=== PATIENT | male | born 1950 | race Caucasian/White ===

== ENCOUNTER → 2018-06-05 07:59 | Outpatient (CLI) | payer MEDICARE, OTHER, SELFPAY ==
[2018-06-05 09:26] LABS: Alanine Aminotransferase 21 IU/L (21-72); Albumin 4.5 g/dL (3.5-5.0); Albumin Globulin Ratio 1.7 (1.0-2.8); Alkaline Phosphatase 74 U/L (38-126); Aspartate Aminotransferase 28 IU/L (17-59); BUN Creatinine Ratio 21.8 (6-22); Bilirubin Total 0.9 mg/dL (0.2-1.3); Blood Urea Nitrogen 24 mg/dL (9-20); Carbon Dioxide 28 mmol/L (22-32); Chloride 104 mmol/L (98-107); Estimated Glomerular Filt Rate > 60.0 mL/min (>60); Globulin 2.7 g/dL (1.7-4.1); Glucose 123 mg/dL (80-110); HEMOLYSIS < 15 (0-50); Sodium 144 mmol/L (137-145); Total Protein 7.2 g/dL (6.3-8.2)
[2018-06-07 06:28] LABS: Hemoglobin A1C% w Est Avg Glu 6.7 % (4.0-6.0)
== END ==
PROVIDERS: Family Provider Family Medicine; PCP Family Medicine; Visit Provider Family Medicine
DX: E11.9 Type 2 diabetes mellitus without complications (principal); E78.5 Hyperlipidemia, unspecified; I10 Essential (primary) hypertension
CPT/HCPCS: 36415; 80053; 83036

== ENCOUNTER → 2018-08-30 08:33 | Outpatient (CLI) | payer MEDICARE, OTHER, SELFPAY ==
[2018-08-30 10:10] LABS: Hemoglobin A1C% w Est Avg Glu 7.2 % (4.0-6.0)
[2018-08-30 10:12] LABS: Alanine Aminotransferase 24 IU/L (21-72); Albumin 4.3 g/dL (3.5-5.0); Albumin Globulin Ratio 1.5 (1.0-2.8); Alkaline Phosphatase 78 U/L (38-126); Aspartate Aminotransferase 26 IU/L (17-59); Bilirubin Total 0.8 mg/dL (0.2-1.3); Blood Urea Nitrogen 17 mg/dL (9-20); Calcium 9.7 mg/dL (8.4-10.2); Carbon Dioxide 31 mmol/L (22-32); Chloride 103 mmol/L (98-107); Cholesterol 180 mg/dL (140-199); Estimated Glomerular Filt Rate > 60.0 mL/min (>60); Globulin 2.8 g/dL (1.7-4.1); Glucose 131 mg/dL (80-110); HDL Cholesterol 49 mg/dL (40-60); HEMOLYSIS < 15 (0-50); LDL Cholesterol Calculated 104 mg/dL (<100); Potassium 4.6 mmol/L (3.4-5.1); Sodium 144 mmol/L (137-145); Total Protein 7.1 g/dL (6.3-8.2); Triglycerides 135 mg/dL (35-150)
== END ==
PROVIDERS: Family Provider Family Medicine; PCP Family Medicine; Visit Provider Family Medicine
DX: E11.9 Type 2 diabetes mellitus without complications (principal); E78.5 Hyperlipidemia, unspecified; I10 Essential (primary) hypertension; Z51.81 Encounter for therapeutic drug level monitoring
CPT/HCPCS: 36415; 80053; 80061; 83036

== ENCOUNTER → 2018-12-02 08:11 | Outpatient (CLI) | payer MEDICARE, OTHER, SELFPAY ==
[2018-12-02 08:30] LABS: Add Manual Diff / Slide Review NO; Basophils Absolute Auto 0 /uL (0-100); Basophils Percent Auto 0.9 % (0-2); Eosinophils Absolute Auto 200 /uL (0-450); Eosinophils Percent Auto 4.8 % (2-4); Hematocrit 42.1 % (41-53); Hemoglobin 14.6 g/dL (13.5-17.5); Lymphocytes Absolute Auto 1100 /uL (1100-4500); Lymphocytes Percent Auto 21.3 % (25-40); Mean Corpuscular HGB Conc 34.7 % (30-36); Mean Corpuscular Volume 89.4 fL (80-100); Monocytes Absolute Auto 400 /uL (0-900); Monocytes Percent Auto 7.3 % (3-14); Neutrophils Absolute Auto 3300 /uL (1500-7000); Neutrophils Percent Auto 65.7 % (50-75); Platelet Count 166 X10^3/uL (150-400); Red Blood Cell Count 4.71 X10^6/uL (4.5-5.9); Red Cell Distribution Width 13.1 % (11.6-14.8); White Blood Cell Count 5.1 X10^3/uL (4.5-11.0)
[2018-12-02 08:44] LABS: Alanine Aminotransferase 23 IU/L (21-72); Albumin 4.4 g/dL (3.5-5.0); Albumin Globulin Ratio 1.5 (1.0-2.8); Alkaline Phosphatase 82 U/L (38-126); Aspartate Aminotransferase 24 IU/L (17-59); Bilirubin Total 0.6 mg/dL (0.2-1.3); Blood Urea Nitrogen 18 mg/dL (9-20); Calcium 9.4 mg/dL (8.4-10.2); Carbon Dioxide 29 mmol/L (22-32); Chloride 104 mmol/L (98-107); Cholesterol 153 mg/dL (140-199); Estimated Glomerular Filt Rate > 60.0 mL/min (>60); Globulin 2.9 g/dL (1.7-4.1); Glucose 132 mg/dL (80-110); HDL Cholesterol 41 mg/dL (40-60); HEMOLYSIS < 15 (0-50); LDL Cholesterol Calculated 85 mg/dL (<100); Potassium 4.2 mmol/L (3.4-5.1); Sodium 140 mmol/L (137-145); Total Protein 7.3 g/dL (6.3-8.2); Triglycerides 134 mg/dL (35-150)
[2018-12-02 08:45] LABS: Hemoglobin A1C% w Est Avg Glu 7.4 % (4.0-6.0)
[2018-12-02 09:33] LABS: Thyroid Stimulating Hormone 1.56 uIU/mL (0.47-4.68)
== END ==
PROVIDERS: PCP Family Medicine; Visit Provider Family Medicine
DX: E11.9 Type 2 diabetes mellitus without complications (principal); E78.5 Hyperlipidemia, unspecified; I10 Essential (primary) hypertension; Z51.81 Encounter for therapeutic drug level monitoring
CPT/HCPCS: 36415; 80053; 80061; 83036; 84443; 85025

== ENCOUNTER → 2019-04-12 07:08 | Outpatient (CLI) | payer MEDICARE, OTHER, SELFPAY ==
[2019-04-12 08:34] LABS: Alanine Aminotransferase 16 IU/L (21-72); Albumin 4.5 g/dL (3.5-5.0); Albumin Globulin Ratio 1.5 (1.0-2.8); Alkaline Phosphatase 89 U/L (38-126); Aspartate Aminotransferase 25 IU/L (17-59); Bilirubin Total 0.8 mg/dL (0.2-1.3); Blood Urea Nitrogen 20 mg/dL (9-20); Calcium 9.9 mg/dL (8.4-10.2); Carbon Dioxide 29 mmol/L (22-32); Chloride 102 mmol/L (98-107); Estimated Glomerular Filt Rate > 60.0 mL/min (>60); Glucose 120 mg/dL (80-110); HEMOLYSIS < 15 (0-50); Potassium 4.5 mmol/L (3.4-5.1); Sodium 140 mmol/L (137-145); Total Protein 7.5 g/dL (6.3-8.2)
[2019-04-12 10:15] LABS: Hemoglobin A1C% w Est Avg Glu 7.2 % (4.0-6.0)
== END ==
PROVIDERS: PCP Family Medicine; Visit Provider Family Medicine
DX: E11.9 Type 2 diabetes mellitus without complications (principal); I10 Essential (primary) hypertension
CPT/HCPCS: 36415; 80053; 83036

== ENCOUNTER → 2019-08-30 07:51 | Outpatient (CLI) | payer MEDICARE, OTHER, SELFPAY ==
[2019-08-30 08:42] LABS: Hemoglobin A1C% w Est Avg Glu 7.4 % (4.0-6.0)
[2019-08-30 08:56] LABS: Alanine Aminotransferase 7 IU/L (21-72); Albumin 4.3 g/dL (3.5-5.0); Albumin Globulin Ratio 1.6 (1.0-2.8); Alkaline Phosphatase 86 U/L (38-126); Aspartate Aminotransferase 20 IU/L (17-59); BUN Creatinine Ratio 21.1 (6-22); Bilirubin Total 0.6 mg/dL (0.2-1.3); Blood Urea Nitrogen 19 mg/dL (9-20); Calcium 9.8 mg/dL (8.4-10.2); Carbon Dioxide 29 mmol/L (22-32); Chloride 104 mmol/L (98-107); Cholesterol 165 mg/dL (140-199); Estimated Glomerular Filt Rate > 60.0 mL/min (>60); Globulin 2.7 g/dL (1.7-4.1); Glucose 151 mg/dL (80-110); HDL Cholesterol 45 mg/dL (40-60); HEMOLYSIS < 15 (0-50); LDL Cholesterol Calculated 91 mg/dL (<100); Potassium 4.3 mmol/L (3.4-5.1); Sodium 140 mmol/L (137-145); Triglycerides 145 mg/dL (35-150)
[2019-08-30 09:27] LABS: Thyroid Stimulating Hormone 1.24 uIU/mL (0.47-4.68)
[2019-08-30 10:43] LABS: Appearance Urine UA CLEAR; Bilirubin Urine UA NEGATIVE (NEGATIVE); Color Urine UA YELLOW; Glucose Urine UA 2+ g/dL (Negative); Ketones Urine UA NEGATIVE (NEGATIVE); Leukocyte Esterase Urine UA NEGATIVE (NEGATIVE); Nitrite Urine UA NEGATIVE (Negative); Occult Blood Urine UA NEGATIVE (Negative); Protein Urine UA NEGATIVE (Negative); Specific Gravity Urine UA <=1.005 (1.000-1.035); Urobilinogen Urine UA 0.2 E.U./dL (0.2); pH Urine UA 5.5 (4.5-8.0)
[2019-08-30 12:06] LABS: Microalbumin Urine Random 2.4 mg/dL (0-1.6)
[2019-08-30 12:07] LABS: Creatinine Urine Random 75.8 mg/dL; Microalbumi Creatinin Ratio Ur 31.6 ug/mg CR (<30)
== END ==
PROVIDERS: PCP Family Medicine; Visit Provider Family Medicine
DX: E11.9 Type 2 diabetes mellitus without complications (principal); E78.5 Hyperlipidemia, unspecified; I10 Essential (primary) hypertension
CPT/HCPCS: 36415; 80053; 80061; 81003; 82043; 82570; 83036; 84443

== ENCOUNTER → 2019-10-04 12:28 | Outpatient (CLI) | payer MEDICARE, OTHER, SELFPAY | PROVIDERS: PCP Family Medicine; Visit Provider Family Medicine | DX: Z00.00 Encounter for general adult medical examination without abnormal findings (principal); I10 Essential (primary) hypertension | CPT/HCPCS: 93005 ==

== ENCOUNTER → 2019-11-11 08:05 | Outpatient (CLI) | payer MEDICARE, OTHER, SELFPAY ==
[2019-11-11 09:48] LABS: Prostate Specific Antigen Scrn 3.06 ng/mL (0.1-4.0)
== END ==
PROVIDERS: PCP Family Medicine; Visit Provider Family Medicine
DX: Z12.5 Encounter for screening for malignant neoplasm of prostate (principal); Z00.00 Encounter for general adult medical examination without abnormal findings
CPT/HCPCS: 36415; G0103

== ENCOUNTER → 2020-01-09 08:35 | Outpatient (CLI) | payer MEDICARE, OTHER, SELFPAY ==
[2020-01-09 09:45] LABS: Add Manual Diff / Slide Review NO; Basophils Absolute Auto 0 /uL (0-100); Basophils Percent Auto 0.7 % (0-2); Eosinophils Absolute Auto 200 /uL (0-450); Hematocrit 41.8 % (41-53); Hemoglobin 14.6 g/dL (13.5-17.5); Lymphocytes Absolute Auto 1100 /uL (1100-4500); Lymphocytes Percent Auto 20.6 % (25-40); Mean Corpuscular HGB Conc 34.9 % (30-36); Mean Corpuscular Hemoglobin 31.1 PG (26-34); Mean Corpuscular Volume 88.9 fL (80-100); Monocytes Absolute Auto 400 /uL (0-900); Monocytes Percent Auto 7.1 % (3-14); Neutrophils Absolute Auto 3500 /uL (1500-7000); Neutrophils Percent Auto 67.6 % (50-75); Platelet Count 158 X10^3/uL (150-400); Red Cell Distribution Width 13.2 % (11.6-14.8); White Blood Cell Count 5.1 X10^3/uL (4.5-11.0)
[2020-01-09 09:55] LABS: Alanine Aminotransferase 13 IU/L (<50); Albumin 4.5 g/dL (3.5-5.0); Albumin Globulin Ratio 1.4 (1.0-2.8); Alkaline Phosphatase 103 U/L (38-126); Aspartate Aminotransferase 24 IU/L (17-59); Bilirubin Total 0.6 mg/dL (0.2-1.3); Blood Urea Nitrogen 18 mg/dL (9-20); Calcium 9.6 mg/dL (8.4-10.2); Carbon Dioxide 28 mmol/L (22-32); Chloride 103 mmol/L (98-107); Cholesterol 183 mg/dL (140-199); Estimated Glomerular Filt Rate > 60.0 mL/min (>60); Globulin 3.3 g/dL (1.7-4.1); Glucose 199 mg/dL (80-110); HDL Cholesterol 40 mg/dL (40-60); HEMOLYSIS < 15 (0-50); LDL Cholesterol Calculated 114 mg/dL (<100); Potassium 4.5 mmol/L (3.4-5.1); Sodium 140 mmol/L (137-145); Total Protein 7.8 g/dL (6.3-8.2); Triglycerides 144 mg/dL (35-150)
[2020-01-09 10:03] LABS: Hemoglobin A1C% w Est Avg Glu 7.8 % (4.0-6.0)
== END ==
PROVIDERS: PCP Family Medicine; Referring Provider Family Medicine; Visit Provider Family Medicine
DX: E11.9 Type 2 diabetes mellitus without complications (principal); E78.5 Hyperlipidemia, unspecified; I10 Essential (primary) hypertension; Z76.89 Persons encountering health services in other specified circumstances
CPT/HCPCS: 36415; 80053; 80061; 83036; 85025

== ENCOUNTER → 2020-01-17 10:32 | Outpatient (CLI) | payer MEDICARE, OTHER, SELFPAY ==
--- NOTE | 2020-01-17 10:34 | DI.RAD.S_ITS ---
PROCEDURE: XR FOOT LT MIN 3V INDICATIONS: cellulitis 2nd toe hx DM s/p partial amputation, r/o osteo TECHNIQUE: 3 views of the foot were acquired. COMPARISON: None. FINDINGS: Bones: Remote middle and distal phalanx amputation of second toe. Subtle loss of distal cortex of the proximal phalanx of the second toe raises the question of osteomyelitis. Prominent first MTP degenerative change. Midfoot degenerative arthritis. Soft tissues: No tibiotalar joint effusion. Achilles tendon appears normal. IMPRESSION: 1. Remote second toe amputation at the level of the PIP joint. 2. Suspicion of osteomyelitis at the distal aspect of the proximal phalanx of the second toe. Comment: Left foot MRI with and without contrast may be helpful. Dictated by: Ghulam Hinds M.D. on 01/17/2020 at 11:02 Approved by: Ghulam Hinds M.D. on 01/17/2020 at 11:08
== END ==
PROVIDERS: PCP Family Medicine; Referring Provider Physician Assistant; Visit Provider Physician Assistant
DX: E11.9 Type 2 diabetes mellitus without complications (principal); L03.032 Cellulitis of left toe; M19.072 Primary osteoarthritis, left ankle and foot; Z89.422 Acquired absence of other left toe(s)
CPT/HCPCS: 73630; 87070; 87075; 87205

== ENCOUNTER → 2020-04-09 08:30 | Outpatient (CLI) | payer MEDICARE, OTHER, SELFPAY ==
[2020-04-09 09:06] LABS: Hemoglobin A1C% w Est Avg Glu 7.8 % (4.0-6.0)
[2020-04-09 09:46] LABS: BUN Creatinine Ratio 21.8 (6-22); Blood Urea Nitrogen 19 mg/dL (9-20); Calcium 9.8 mg/dL (8.4-10.2); Carbon Dioxide 27 mmol/L (22-32); Chloride 103 mmol/L (98-107); Estimated Glomerular Filt Rate > 60.0 mL/min (>60); Glucose 140 mg/dL (80-110); HEMOLYSIS < 15 (0-50); Potassium 4.8 mmol/L (3.4-5.1); Sodium 137 mmol/L (137-145)
== END ==
PROVIDERS: PCP Family Medicine; Referring Provider Family Medicine; Visit Provider Family Medicine
DX: E11.9 Type 2 diabetes mellitus without complications (principal)
CPT/HCPCS: 36415; 80048; 83036

== ENCOUNTER → 2020-10-08 08:46 | Outpatient (CLI) | payer MEDICARE, OTHER, SELFPAY ==
[2020-10-08 09:48] LABS: Add Manual Diff / Slide Review NO; Basophils Absolute Auto 0 /uL (0-100); Basophils Percent Auto 0.6 % (0-2); Eosinophils Absolute Auto 100 /uL (0-450); Eosinophils Percent Auto 2.2 % (2-4); Hematocrit 43.7 % (41-53); Lymphocytes Absolute Auto 700 /uL (1100-4500); Lymphocytes Percent Auto 14.9 % (25-40); Mean Corpuscular HGB Conc 34.3 % (30-36); Mean Corpuscular Hemoglobin 30.7 PG (26-34); Mean Corpuscular Volume 89.5 fL (80-100); Monocytes Absolute Auto 400 /uL (0-900); Neutrophils Absolute Auto 3500 /uL (1500-7000); Neutrophils Percent Auto 73.3 % (50-75); Platelet Count 191 X10^3/uL (150-400); Red Blood Cell Count 4.89 X10^6/uL (4.5-5.9); Red Cell Distribution Width 13.2 % (11.6-14.8); White Blood Cell Count 4.8 X10^3/uL (4.5-11.0)
[2020-10-08 10:24] LABS: Alanine Aminotransferase 15 IU/L (<50); Albumin 4.2 g/dL (3.5-5.0); Albumin Globulin Ratio 1.4 (1.0-2.8); Alkaline Phosphatase 111 U/L (38-126); Aspartate Aminotransferase 26 IU/L (17-59); BUN Creatinine Ratio 16.7 (6-22); Bilirubin Total 0.8 mg/dL (0.2-1.3); Blood Urea Nitrogen 16 mg/dL (9-20); Carbon Dioxide 33 mmol/L (22-32); Chloride 103 mmol/L (98-107); Cholesterol 183 mg/dL (140-199); Estimated Glomerular Filt Rate > 60.0 mL/min (>60); Globulin 2.9 g/dL (1.7-4.1); Glucose 194 mg/dL (80-110); HDL Cholesterol 46 mg/dL (40-60); HEMOLYSIS < 15 (0-50); LDL Cholesterol Calculated 100 mg/dL (<100); Sodium 139 mmol/L (137-145); Total Protein 7.1 g/dL (6.3-8.2); Triglycerides 187 mg/dL (35-150)
[2020-10-08 10:47] LABS: Creatinine Urine Random 71.6 mg/dL
[2020-10-08 10:51] LABS: Microalbumi Creatinin Ratio Ur 12.5 ug/mg CR (<30); Microalbumin Urine Random 0.9 mg/dL (0-1.6)
[2020-10-08 10:54] LABS: Prostate Specific Antigen Scrn 3.93 ng/mL (0.1-4.0)
== END ==
PROVIDERS: PCP Family Medicine; Referring Provider Family Medicine; Visit Provider Family Medicine
DX: E11.9 Type 2 diabetes mellitus without complications (principal); E78.5 Hyperlipidemia, unspecified; I10 Essential (primary) hypertension; Z12.5 Encounter for screening for malignant neoplasm of prostate
CPT/HCPCS: 36415; 80053; 80061; 82043; 82570; 83036; 85025; G0103

== ENCOUNTER 2020-12-02 08:33 | Emergency (ER) | payer MEDICARE, OTHER, SELFPAY ==
--- NOTE | 2020-12-02 08:41 | ED.MALEGU ---
HPI - Male Genitourinary General Chief complaint: Urogenital-Male Stated complaint: blood in urine Time Seen by Provider: 12/02/20 08:41 Source: patient and old records reviewed Mode of arrival: Ambulatory Limitations: no limitations History of Present Illness HPI Narrative: This is a pleasant 70-year-old male who arrives for complaint of hematuria. Patient noticed this morning while urinating that there was reddish discoloration. Patient states that he is unsure if he had any episodes overnight but noted in the toilet bowl that there may have been at least 1 episode before. He is unsure if he visualize any clots. Patient denies any pain. He states he has had chronic urinary frequency. He had a large amount of urine this morning. He denies any pain, injury or similar symptoms in the past. Patient denies any fevers or chills. He denies any cold, cough or congestion. He denies any chest pain or shortness of breath. He denies any nausea or vomiting. No issues with bowel movements. Patient has not had any dysuria, urgency or sense of incomplete emptying. He does take an aspirin 81 mg daily. He has known diabetes, hypertension and dyslipidemia. He takes amlodipine, simvastatin and 3 oral diabetic medication. Patient denies any prior surgeries. He denies any allergies to medications. No tobacco, rare alcohol, no illicit. He follows on a quarterly schedule with Dr. Seo his primary care physician for his diabetes. He states he has only had 1 prior hospitalization for hyperkalemia which he related to high amount of crustation ingestion. Related Data Home Medications Medication Instructions Recorded Confirmed calcium carbonate [Tums Ultra] 1,000 mg PO #0 12/10/16 10/08/20 multivitamin,[id number] 1 tab PO DAILY 09/01/18 10/08/20 aspirin 81 mg tablet,delayed 81 mg PO DAILY 01/13/20 10/08/20 release Previous Rx's Medication Instructions Recorded varicella-zoster gE vac,2 of 2 50 0.5 mcg IM ONCE #1 each 10/04/19 mcg IM suspension mupirocin 2 % topical ointment 1 applic TOP TID #30 gram 01/17/20 alogliptin 12.5 mg-metformin 500 1 tab PO BID #60 tab 05/15/20 mg tablet Glucose: Test Strips #100 each 06/18/20 amlodipine 5 mg tablet See Rx Instructions .ROUTE 07/17/20 .COMPLEX #90 tab pioglitazone 15 mg tablet See Rx Instructions .ROUTE 07/17/20 .COMPLEX #90 tab empagliflozin 25 mg tablet 25 mg PO DAILY #90 tab 10/12/20 simvastatin 20 mg tablet 20 mg PO Q DAY #90 tab 10/15/20 metformin 500 mg tablet See Rx Instructions .ROUTE 10/24/20 .COMPLEX #60 tab glipizide 5 mg tablet, extended 5 mg PO BID #180 tab 11/07/20 release 24 hr Allergies Allergy/AdvReac Type Severity Reaction Status Date / Time No Known Drug Allergies Allergy Verified 10/08/20 08:18 Review of Systems Review of Systems ROS Unobtainable: All systems reviewed & are unremarkable except as noted in HPI and below Patient History Medical History Actinic keratosis Basal cell carcinoma Cellulitis of toe Diabetes Eczema Hyperlipidemia Hypertension Measles 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 HEENT: Atraumatic, pupils are equal round reactive to light, extraocular movements are intact. HEART: Regular rate and rhythm without murmur, clicks, rubs. LUNGS:Lungs clear to auscultation, no wheezes, rales, crackles, chest moves symmetrically ABD:bowel sounds normal, soft, non-tender, no guarding, rebound, rigidity, no masses noted, no hepatosplenomegaly :No CVA tenderness MSCL: Non-tender, no muscle atrophy, full range of motion, normal gait NEURO:CN 2-12 intact, sensation normal SKIN: No rashes, erythema other skin changes. Patient has small amount of ecchymosis over the left dorsum of the hand. Initial Vital Signs Initial Vital Signs: Vital Signs Temperature 98.6 F 12/02/20 08:45 Pulse Rate 79 12/02/20 08:45 Respiratory Rate 18 12/02/20 08:45 Blood Pressure 179/78 H 12/02/20 08:45 Pulse Oximetry 100 12/02/20 08:45 Course Orders Ordered: ED Orders 12/02/20 09:01 Basic Metabolic Panel Stat Complete Blood Count AUTO DIFF Stat 12/02/20 09:24 Urinalysis and Microscopic Stat 12/02/20 10:32 Urine Culture Stat Vital Signs Vital signs: Vital Signs - 8 hr 12/02/20 08:45 12/02/20 10:21 Temperature 98.6 F Pulse Rate 79 67 Respiratory Rate 18 15 Blood Pressure 179/78 H 130/62 Pulse Oximetry 100 97 MDM - Male Genitourinary Lab Data Attestation: I reviewed the patient's lab results. Result diagrams: 12/02/20 09:01 12/02/20 09:01 Labs: Lab Results 12/02/20 12/02/20 12/02/20 Range/Units 09:01 09:01 09:24 WBC 5.1 (4.5-11.0) X10^3/uL RBC 5.19 (4.5-5.9) X10^6/uL Hgb 15.5 (13.5-17.5) g/dL Hct 46.6 (41-53) % MCV 89.8 (80-100) fL MCH 30.0 (26-34) PG MCHC 33.4 (30-36) % RDW 13.3 (11.6-14.8) % Plt Count 199 (150-400) X10^3/uL Neut % (Auto) 70.4 (50-75) % Lymph % (Auto) 18.4 L (25-40) % [place] % (Auto) 7.6 (3-14) % Eos % (Auto) 2.6 (2-4) % Baso % (Auto) 1.0 (0-2) % Neut # (Auto) 3600 (6683-3888) /uL Lymph # (Auto) 900 L (7136-6418) /uL [place] # (Auto) 400 (0-900) /uL Eos # (Auto) 100 (0-450) /uL Baso # (Auto) 100 (0-100) /uL Sodium 139 (137-145) mmol/L Potassium 4.3 (3.4-5.1) mmol/L Chloride 104 (98-107) mmol/L Carbon Dioxide 29 (22-32) mmol/L BUN 21 H (9-20) mg/dL Creatinine 0.86 (0.66-1.25) mg/dL Estimated GFR > 60.0 (>60) mL/min BUN/Creatinine Ratio 24.4 H (6-22) Glucose 197 H (80-110) mg/dL Calcium 9.5 (8.4-10.2) mg/dL Urine Color Yellow Urine Appearance Clear Urine pH 5.5 (4.5-8.0) Ur Specific [place] 1.010 (1.000-1.035) Urine Protein Negative (Negative) Urine Glucose (UA) 2+ H (Negative) g/dL Urine Ketones Trace H (NEGATIVE) Urine Occult Blood 3+ H (Negative) Urine Nitrate Negative (Negative) Urine Bilirubin Negative (NEGATIVE) Urine Urobilinogen 0.2 (0.2) E.U./dL Ur Leukocyte Esterase Negative (NEGATIVE) Urine RBC 30-100/hpf H (0-5/HPF) Urine WBC 0-1/hpf (0-5/HPF) Ur Squamous Epith Cells 1-5 /hpf (0-5/HPF) Urine Bacteria None seen (None) Ur Culture Indicated? Cult not indicated MDM Narrative Medical decision making narrative: This is a 70-year-old male who presents with painless hematuria. Patient does take an aspirin 81 mg daily. His labs show no acute changes in hemoglobin or hematocrit,, BUN slightly elevated with glucose of 197 which is consistent with priors. Patient's urinalysis shows hematuria in but no clear infection. Urine culture was ordered. I did discuss with patient that I would recommend at least an ultrasound of his kidneys at this time. He defers right now but is happy to follow up with his primary care. We discussed that we need to find the source of his hematuria. We did discuss stopping his aspirin for a week as he takes it for preventative issues but has not had any prior heart attack strokes or issues that would require he needs to be taking it at this time. Return precautions were discussed and patient feels comfortable with this plan. Discharge Plan Departure Patient Disposition: Home Clinical Impression: Hematuria Instructions: DI for Hematuria Activity Restrictions/Additional Instructions: Follow-up with your physician in the next 1-2 weeks for recheck. They will wish to recheck your urine make sure your hematuria has resolved. I would also recommend asking your physician about getting ultrasound of your kidneys to evaluate for the source of your hematuria or blood in your urine. You do need to follow up with urology if your hematuria does not resolve. You may take your other medications as prescribed. You may continue your home medications, please hold your aspirin for the next week. Return to the ER for fevers, new back, abdominal or flank pain, lightheadedness or passing out, persistent vomiting, inability to urinate, painful urination for few having increasing amounts of bleeding including large clots other new or concerning symptoms. Prescriptions: No Action multivitamin,[id number] [Complete Multivitamin] tablet 1 tab PO DAILY RF: 0 mupirocin 2 % ointment 1 applic TOP TID Qty: 30 RF: 0 calcium carbonate [Tums Ultra] 1,000 MG tablet,chewable 1,000 mg PO Qty: 0 RF: 0 alogliptin-metformin 12.5-500 mg tablet 1 tab PO BID Qty: 60 RF: 2 (DME) Glucose: Test Strips 1 box See Rx Instructions .Route .MEDSUPPLY Qty: 100 RF: 3 amlodipine 5 mg tablet See Rx Instructions .ROUTE .COMPLEX Qty: 90 RF: 2 pioglitazone 15 mg tablet See Rx Instructions .ROUTE .COMPLEX Qty: 90 RF: 2 empagliflozin 25 mg tablet 25 mg PO DAILY Qty: 90 RF: 2 simvastatin 20 mg tablet 20 mg PO Q DAY Qty: 90 RF: 3 metformin 500 mg tablet See Rx Instructions .ROUTE .COMPLEX Qty: 60 RF: 4 glipizide [Glucotrol XL] 5 mg tablet extended release 24hr 5 mg PO BID Qty: 180 RF: 2 aspirin 81 mg tablet,delayed release (DR/EC) 81 mg PO DAILY RF: 0 Shingrix gE Antigen Component 50 mcg suspension for reconstitution 0.5 mcg IM ONCE Qty: 1 RF: 0 Referrals: Trever Seo, [Primary Care Provider] -
[2020-12-02 08:45] VITALS: BP 179/78; PULSE 79; RESP 18; TEMP 37; O2SAT 100; BMI 30.7
[2020-12-02 09:21] LABS: Add Manual Diff / Slide Review NO; Basophils Absolute Auto 100 /uL (0-100); Eosinophils Absolute Auto 100 /uL (0-450); Eosinophils Percent Auto 2.6 % (2-4); Hematocrit 46.6 % (41-53); Hemoglobin 15.5 g/dL (13.5-17.5); Lymphocytes Absolute Auto 900 /uL (1100-4500); Lymphocytes Percent Auto 18.4 % (25-40); Mean Corpuscular HGB Conc 33.4 % (30-36); Mean Corpuscular Volume 89.8 fL (80-100); Monocytes Absolute Auto 400 /uL (0-900); Monocytes Percent Auto 7.6 % (3-14); Neutrophils Absolute Auto 3600 /uL (1500-7000); Neutrophils Percent Auto 70.4 % (50-75); Platelet Count 199 X10^3/uL (150-400); Red Blood Cell Count 5.19 X10^6/uL (4.5-5.9); Red Cell Distribution Width 13.3 % (11.6-14.8); White Blood Cell Count 5.1 X10^3/uL (4.5-11.0)
[2020-12-02 09:24] LABS: BUN Creatinine Ratio 24.4 (6-22); Blood Urea Nitrogen 21 mg/dL (9-20); Calcium 9.5 mg/dL (8.4-10.2); Carbon Dioxide 29 mmol/L (22-32); Chloride 104 mmol/L (98-107); Estimated Glomerular Filt Rate > 60.0 mL/min (>60); Glucose 197 mg/dL (80-110); HEMOLYSIS < 15 (0-50); Potassium 4.3 mmol/L (3.4-5.1); Sodium 139 mmol/L (137-145)
[2020-12-02 09:40] LABS: Bacteria Urine None Seen
[2020-12-02 09:42] LABS: Appearance Urine UA CLEAR; Bilirubin Urine UA NEGATIVE (NEGATIVE); Color Urine UA YELLOW; Glucose Urine UA 2+ g/dL (Negative); Ketones Urine UA TRACE (NEGATIVE); Leukocyte Esterase Urine UA NEGATIVE (NEGATIVE); Nitrite Urine UA NEGATIVE (Negative); Occult Blood Urine UA 3+ (Negative); Protein Urine UA NEGATIVE (Negative); Urobilinogen Urine UA 0.2 E.U./dL (0.2); pH Urine UA 5.5 (4.5-8.0)
[2020-12-02 09:49] LABS: Culture Indicated Urine Cult Not Indicated; RBC Urine 30-100/HPF (0-5/HPF); Squamous Epithelial Cell Urine 1-5 /HPF (0-5/HPF); WBC Urine 0-1/HPF (0-5/HPF)
[2020-12-02 10:21] VITALS: BP 130/62; PULSE 67; RESP 15; O2SAT 97
== END 2020-12-02 10:33 | disposition home or self-care (01) ==
PROVIDERS: Emergency Provider Emergency Medicine; PCP Family Medicine
DX: R31.9 Hematuria, unspecified (principal); E11.9 Type 2 diabetes mellitus without complications; I10 Essential (primary) hypertension; E78.5 Hyperlipidemia, unspecified; Z79.82 Long term (current) use of aspirin
CPT/HCPCS: 36415; 80048; 81001; 85025; 87086; 99283

== ENCOUNTER → 2021-01-31 08:07 | Outpatient (CLI) | payer MEDICARE, OTHER, SELFPAY ==
[2021-01-31 09:09] LABS: Creatinine Urine Random 48.2 mg/dL
[2021-01-31 09:10] LABS: Alanine Aminotransferase 14 IU/L (<50); Albumin 4.1 g/dL (3.5-5.0); Albumin Globulin Ratio 1.5 (1.0-2.8); Alkaline Phosphatase 90 U/L (38-126); Aspartate Aminotransferase 23 IU/L (17-59); Bilirubin Total 0.5 mg/dL (0.2-1.3); Blood Urea Nitrogen 19 mg/dL (9-20); Calcium 9.4 mg/dL (8.4-10.2); Carbon Dioxide 28 mmol/L (22-32); Chloride 104 mmol/L (98-107); Estimated Glomerular Filt Rate > 60.0 mL/min (>60); Globulin 2.7 g/dL (1.7-4.1); Glucose 153 mg/dL (80-110); HEMOLYSIS < 15 (0-50); Potassium 4.5 mmol/L (3.4-5.1); Sodium 139 mmol/L (137-145); Total Protein 6.8 g/dL (6.3-8.2)
[2021-01-31 09:14] LABS: Microalbumi Creatinin Ratio Ur 22.8 ug/mg CR (<30); Microalbumin Urine Random 1.1 mg/dL (0-1.6)
== END ==
PROVIDERS: PCP Family Medicine; Referring Provider Family Medicine; Visit Provider Family Medicine
DX: E11.9 Type 2 diabetes mellitus without complications (principal); I10 Essential (primary) hypertension
CPT/HCPCS: 36415; 80053; 82043; 82570; 83036

== ENCOUNTER → 2021-03-25 07:44 | Outpatient (CLI) | payer MEDICARE, OTHER, SELFPAY ==
--- NOTE | 2021-03-25 07:46 | DI.CT.S_ITS ---
PROCEDURE: CT KIDNEY URETER BLADDER (KUB) INDICATIONS: Gross painless hematuria TECHNIQUE: Noncontrast 5 mm thick sections acquired from the diaphragms to the symphysis. 5 mm thick coronal and sagittal reformats were then performed. For radiation dose reduction, the following was used: automated exposure control, adjustment of mA and/or kV according to patient size. COMPARISON: None. FINDINGS: Image quality: Excellent. Lung bases: Subpleural focal small collection of emphysematous changes the medial left lower lung. Lung bases are otherwise clear. Heart size is normal. Heavy coronary artery calcification. Urinary system: Both kidneys are normal in size. There is moderate, chronic appearing left hydronephrosis and moderate to marked left hydroureter. There are no left intrarenal calculi. There is mild chronic appearing right lower pole hydronephrosis and two nonobstructing right lower pole intrarenal calculi. No right hydroureter. In the distal aspect of the right ureter however, there is an 8 x 6 mm calcification. Dependently in the left distal ureter in a nonobstructing fashion layers a 6 mm calcification. There is a large round stone with irregular margins within the urinary bladder measuring 5.3 x 4.9 x 4.6 cm. The urinary bladder wall is diffusely irregular and slightly thickened. The prostate gland is enlarged measuring 6.2 x 6.5 x 5.4 cm. Other solid organs: Liver is normal in size. Gallbladder is normal . Pancreas is normal in contours. Spleen is normal in size. No adrenal nodules. Peritoneum and bowel: Unenhanced bowel loops demonstrate normal wall thickness and caliber. No free fluid or air. Nodes and vessels: No retroperitoneal or mesenteric adenopathy by size criteria. Aorta and inferior vena cava are normal in caliber. Mild abdominal aortic atherosclerotic calcification. Abdominal wall: No ventral hernias. Pelvis: No free pelvic fluid. No inguinal hernias or adenopathy. Heavy peripheral arterial calcification. Bones: No suspicious bony lesions. No vertebral body compression fractures. IMPRESSION: 1. Large bladder calcification. 2. Prostatomegaly. 3. 8 x 6 mm right distal ureteral calcification, however there is no hydroureter and mild lower pole hydronephrosis. 4. Nonobstructing 6 mm left distal ureteral calcification. 5. Chronic appearing left-sided hydroureteronephrosis to a moderate to severe degree. 6. Urology consult is recommended if not already done. Dictated by: Anita Pino M.D. on 03/25/2021 at 9:20 Approved by: Anita Pino M.D. on 03/25/2021 at 9:32
== END ==
PROVIDERS: PCP Family Medicine; Referring Provider Family Medicine; Visit Provider Family Medicine
DX: R31.0 Gross hematuria; N13.2 Hydronephrosis with renal and ureteral calculous obstruction; N32.89 Other specified disorders of bladder; N40.0 Benign prostatic hyperplasia without lower urinary tract symptoms
CPT/HCPCS: 74176

== ENCOUNTER → 2021-05-21 08:26 | Outpatient (CLI) | payer MEDICARE, OTHER, SELFPAY ==
[2021-05-21 09:39] LABS: Hemoglobin A1C% w Est Avg Glu 6.8 % (4.0-6.0)
[2021-05-21 09:48] LABS: Alanine Aminotransferase 13 IU/L (<50); Albumin 4.1 g/dL (3.5-5.0); Albumin Globulin Ratio 1.5 (1.0-2.8); Alkaline Phosphatase 92 U/L (38-126); Aspartate Aminotransferase 27 IU/L (17-59); BUN Creatinine Ratio 17.5 (6-22); Bilirubin Total 0.6 mg/dL (0.2-1.3); Blood Urea Nitrogen 17 mg/dL (9-20); Calcium 9.7 mg/dL (8.4-10.2); Carbon Dioxide 28 mmol/L (22-32); Chloride 105 mmol/L (98-107); Cholesterol 170 mg/dL (140-199); Estimated Glomerular Filt Rate > 60.0 mL/min (>60); Globulin 2.8 g/dL (1.7-4.1); Glucose 123 mg/dL (80-110); HDL Cholesterol 46 mg/dL (40-60); HEMOLYSIS < 15 (0-50); LDL Cholesterol Calculated 93 mg/dL (<100); Potassium 4.6 mmol/L (3.4-5.1); Sodium 140 mmol/L (137-145); Total Protein 6.9 g/dL (6.3-8.2); Triglycerides 154 mg/dL (35-150)
== END ==
PROVIDERS: PCP Family Medicine; Referring Provider Family Medicine; Visit Provider Family Medicine
DX: E11.9 Type 2 diabetes mellitus without complications (principal); E78.5 Hyperlipidemia, unspecified; I10 Essential (primary) hypertension
CPT/HCPCS: 36415; 80053; 80061; 83036

== ENCOUNTER → 2021-10-08 07:47 | Outpatient (CLI) | payer MEDICARE, OTHER, SELFPAY ==
[2021-10-08 08:31] LABS: Add Manual Diff / Slide Review NO; Basophils Absolute Auto 0 /uL (0-100); Eosinophils Absolute Auto 200 /uL (0-450); Eosinophils Percent Auto 3.7 % (2-4); Hemoglobin 13.7 g/dL (13.5-17.5); Lymphocytes Absolute Auto 900 /uL (1100-4500); Lymphocytes Percent Auto 20.9 % (25-40); Mean Corpuscular HGB Conc 34.3 % (30-36); Mean Corpuscular Hemoglobin 30.3 PG (26-34); Mean Corpuscular Volume 88.4 fL (80-100); Monocytes Absolute Auto 400 /uL (0-900); Monocytes Percent Auto 8.8 % (3-14); Neutrophils Absolute Auto 3000 /uL (1500-7000); Neutrophils Percent Auto 65.6 % (50-75); Platelet Count 151 X10^3/uL (150-400); Red Blood Cell Count 4.53 X10^6/uL (4.5-5.9); Red Cell Distribution Width 13.8 % (11.6-14.8); White Blood Cell Count 4.5 X10^3/uL (4.5-11.0)
[2021-10-08 08:45] LABS: Hemoglobin A1C% w Est Avg Glu 7.6 % (4.0-6.0)
[2021-10-08 09:00] LABS: Alanine Aminotransferase 14 IU/L (<50); Albumin 4.1 g/dL (3.5-5.0); Albumin Globulin Ratio 1.6 (1.0-2.8); Alkaline Phosphatase 78 U/L (38-126); Aspartate Aminotransferase 23 IU/L (17-59); BUN Creatinine Ratio 20.7 (6-22); Bilirubin Total 0.5 mg/dL (0.2-1.3); Blood Urea Nitrogen 23 mg/dL (9-20); Calcium 9.7 mg/dL (8.4-10.2); Carbon Dioxide 29 mmol/L (22-32); Chloride 106 mmol/L (98-107); Cholesterol 193 mg/dL (140-199); Estimated Glomerular Filt Rate > 60.0 mL/min (>60); Globulin 2.6 g/dL (1.7-4.1); Glucose 144 mg/dL (80-110); HDL Cholesterol 50 mg/dL (40-60); HEMOLYSIS < 15 (0-50); LDL Cholesterol Calculated 112 mg/dL (<100); Potassium 4.3 mmol/L (3.4-5.1); Sodium 142 mmol/L (137-145); Total Protein 6.7 g/dL (6.3-8.2); Triglycerides 155 mg/dL (35-150)
[2021-10-08 09:26] LABS: Prostate Specific Antigen Scrn 2.41 ng/mL (0.1-4.0)
== END ==
PROVIDERS: PCP Family Medicine; Referring Provider Family Medicine; Visit Provider Family Medicine
DX: E78.5 Hyperlipidemia, unspecified (principal); E11.9 Type 2 diabetes mellitus without complications; I10 Essential (primary) hypertension; Z12.5 Encounter for screening for malignant neoplasm of prostate; N40.0 Benign prostatic hyperplasia without lower urinary tract symptoms
CPT/HCPCS: 36415; 80053; 80061; 83036; 85025; G0103

== ENCOUNTER → 2021-12-02 13:45 | Outpatient (CLI) | payer MEDICARE, OTHER, SELFPAY ==
--- NOTE | 2021-12-02 13:47 | DI.CT.S_ITS ---
PROCEDURE: CT ABDOMEN PELVIS WO CON INDICATIONS: Urinary calculi TECHNIQUE: Axial sections were acquired from the lung bases to the pubic symphysis. Coronal and sagittal reformats were performed. For radiation dose reduction, the following was used: automated exposure control, adjustment of mA and/or kV according to patient size. COMPARISON: [facility], CT, CT KIDNEY URETER BLADDER (KUB), 03/25/2021, 7:59. FINDINGS: Image quality: Excellent. Lung bases: Unremarkable. Heart: No significant findings. URINARY: Right Kidney: The right kidney is atrophic. Parapelvic cysts are present. There is superimposed moderate hydronephrosis. No renal calculi. Right Ureter: There is a distal right ureteral calculus measuring 7 mm, Hounsfield units 1220 located approximately 2.5 cm from the ureterovesicular junction. There is a previous distal right ureteral calculus measuring 5 mm approximately 1 cm from the ureterovesicular junction on 03/25/2021. Left Kidney: The left kidney is atrophic with parapelvic cysts. There is superimposed moderate to severe hydronephrosis. Left Ureter: Moderate to severe hydroureter is present. There is a 6 mm calcification in the distal left ureter, in near the exact location of a 3 mm calcification on 03/25/2021. Approximately 2 cm from the ureterovesicular junction. Bladder: Large bladder calculus is present measuring 5.0 x 5.3 cm compared to 5.1 x 4.7 cm. ABDOMEN: Liver: Hepatic steatosis is present. Gallbladder: The gallbladder is unremarkable. Biliary ducts: Unremarkable. Pancreas: Unremarkable. Spleen: Unremarkable. Adrenal Glands: Unremarkable. Stomach and Bowel: Stomach, small bowel loops, and colon are unremarkable. Peritoneum: No abnormal intraperitoneal fluid. No free air. Ventral Wall: Trace fat containing ventral hernia is present. Abdominal Nodes: No enlarged retroperitoneal or mesenteric lymph nodes. Vessels: Aorta and inferior vena cava are normal in size. PELVIS: Pelvic Organs: The prostate gland is enlarged. Pelvic Nodes: Unremarkable. Miscellaneous: Bilateral fat containing inguinal hernias are present.. Bones: Unremarkable. IMPRESSION: Progression of bilateral hydronephrosis and hydroureter as described above. New right distal ureteral calcification. In addition, there is a persistent enlarging left distal ureteral calcification unchanged in location compared to prior exam. Large bladder calculus is unchanged. Dictated by: Cony Niño M.D. on 12/02/2021 at 16:02 Approved by: Cony Niño M.D. on 12/02/2021 at 16:07
== END ==
PROVIDERS: PCP Family Medicine; Referring Provider Urology; Visit Provider Urology
DX: N13.2 Hydronephrosis with renal and ureteral calculous obstruction (principal); N21.0 Calculus in bladder; N28.1 Cyst of kidney, acquired; N28.89 Other specified disorders of kidney and ureter; K40.20 Bilateral inguinal hernia, without obstruction or gangrene, not specified as recurrent; N40.0 Benign prostatic hyperplasia without lower urinary tract symptoms; Z87.448 Personal history of other diseases of urinary system
CPT/HCPCS: 74176

== ENCOUNTER → 2021-12-23 08:35 | Outpatient (CLI) | payer MEDICARE, OTHER, SELFPAY ==
[2021-12-23 11:10] LABS: COVID19 -Nasal RAPID Negative (Negative)
[2021-12-23 11:38] LABS: BUN Creatinine Ratio 21.4 (6-22); Blood Urea Nitrogen 24 mg/dL (9-20); Calcium 9.8 mg/dL (8.4-10.2); Carbon Dioxide 32 mmol/L (22-32); Chloride 103 mmol/L (98-107); Estimated Glomerular Filt Rate > 60.0 mL/min (>60); Glucose 114 mg/dL (80-110); HEMOLYSIS < 15 (0-50); Potassium 4.1 mmol/L (3.4-5.1); Sodium 140 mmol/L (137-145)
== END ==
PROVIDERS: PCP Family Medicine; Referring Provider Urology; Visit Provider Urology
DX: N13.2 Hydronephrosis with renal and ureteral calculous obstruction (principal); Z20.822 Contact with and (suspected) exposure to COVID-19
CPT/HCPCS: 36415; 80048; 87635; C9803

== ENCOUNTER 2021-12-26 10:35 | Day surgery (SDC) | payer MEDICARE, OTHER, SELFPAY ==
[2021-12-23 15:55] VITALS: BMI 32.1
[2021-12-26] VITALS (9 sets, daily range): BP systolic 154–178; BP diastolic 61–86; PULSE 61–74; RESP 11–16; TEMP 36.2–36.9; O2SAT 97–100; BMI 32.1
[2021-12-26] MEDS: LACTATED RINGERS 1,000 ML 42 ML IV ×2 (11:12→12:48)
--- NOTE | 2021-12-26 11:59 | SUR.PREOP ---
Dr. Montanez made aware of R great toe.
--- NOTE | 2021-12-26 12:11 | PM.PREOP ---
Pre-operative Note COVID-19 COVID-19 status: Negative Result date/Date tested (Pos, Neg/Pending): 12/23/21 Criteria for continued procedure: Expected advancement of disease process, Possibility delay results in more complex future surgery or treatment, Delay expected to result in less-positive ultimate med/surg outcome and Non-surgical alternatives not available or appropriate per current SOC Interval Note History & Physical reviewed/Exam performed by Physician: Yes Changes to H&P: No
[2021-12-26] MEDS: CEFAZOLIN 2 GM/20 ML SYRINGE IV (12:35)
--- NOTE | 2021-12-26 13:47 | PM.OP.1 ---
Procedure & Clinicians Procedure: Cystoscopy with bilateral stent placement, right ureteroscopy with laser lithotripsy and basket extraction of stone. Same procedure as scheduled: Yes Indications: This is a 71-year-old gentleman who presented with hematuria was found to have bilateral distal ureteral calculi and bilateral hydronephrosis. As well as a very large bladder stone. Amazingly he was asymptomatic from all of these. The stones had been present for some time before he came to see me and with repeat imaging his hydronephrosis had advanced. Thus he is brought today to have bilateral stent placement treatment of the right side. The stone in the bladder is not going to be treated today as it will need an open procedure to be treated. And a more imminent difficulty is the obstruction and bilateral hydronephrosis. Surgeon: Cruz Montanez Click Yes if Unassisted: Yes Anesthesia Type: General Operative Notes Findings: The urethral meatus is normal the urethra was normal to the prostatic fossa where the prostate exhibits moderate approaching severe bilobar obstructive character. Within the bladder there is a large stone with a very irregular and somewhat spiky surface. The bladder exhibits severe trabeculation and cellules and was incompletely surveyed. The stent on the left was left in good position without string had and the stone was and again noted in the distal 3rd of the ureter. On the right side of the stone again was in the distal 3rd of the ureter was a single stone irregular in shape with some jackstone characteristics. The larger fragments were removed and placed into the bladder. There were some dust and smaller fragments left to be passed passively. The stent on the right side was left in good position without a nylon harness. The stents were both 7 [place]ian multi length stents. Closure Type: not applicable Specimen(s): none sent Prosthetic devices, grafts, tissues, transplants, or devices: Bilateral ureteral stents 7 [place]ian by multi length there was no nylon hardness or tether left on either stent. Estimated Blood Loss (mL): 10 Procedure in detail: After informed consent was obtained, the patient was identified and brought to the operating where he was placed in the supine position on the operative table. Anesthesia was induced to maintain in the patient was transitioned to the lithotomy position. The patient was then prepped, draped and prepared in a sterile fashion for transurethral procedure. After prepping and draping and assuring an adequate level of anesthesia a 22 [place]ian cystoscope was passed through the urethra and prostate into the bladder. Cystoscopy was performed as was limited by the presence of the large bladder stone. The left ureteral orifice was identified and a guidewire was passed up into the collecting system under fluoroscopic visualization. Stent was then passed over the wire in a coaxial fashion position in the renal pelvis under fluoroscopic visualization. Stent was then positioned in the bladder under direct vision. The grasping forceps was inserted the stent was grasped and the nylon harness was removed. The stent was then left in good position. Attention was then turned to the right side where the ureteral orifice was identified guidewire was passed up and into the collecting system scope was backed out and this wire was left as a safety wire. Scope was reinserted and a 2nd wire passed up and into the collecting system to be used as a working wire. The semi-rigid scope was then passed over the wire and up and into the ureter and the stone identified. Scope was passed up to its limit and no other stones were noted either in direct vision or by fluoroscopy. The laser fiber was then inserted through the ureteral scope and laser energy applied to the stone fragmenting it to dust and larger fragments. A Nitinol basket was then employed to remove the fragments which were removed from the ureter and deposited within the bladder. This was done till 0 the larger fragments had been removed from the ureter. The ureteral scope was then removed the safety wire backloaded through the cystoscope and the cystoscope passed back into the bladder. The stent on the right side was passed over the wire in a coaxial fashion where was positioned in the renal pelvis under fluoroscopic visualization and in the bladder under direct vision. The grasping forceps was once again inserted and the stent grafts the nylon heart is removed and the stent left in good position. This was verified by visiting the renal pelvis on each side and bladder noting that that stent was appropriately positioned. Patient's bladder was then drained scope removed the patient awakened and taken to the postanesthesia care unit having tolerated the procedure well. Patient will be discharged to home to follow-up in my office in approximately 10-14 days with a KUB. There were no complications Complications: none Post-operative Condition: stable Disposition: PACU Plan for aftercare: Patient to be discharged home to follow-up in my office in 10 days with a KUB.
== END 2021-12-26 15:31 | disposition home or self-care (01) ==
LOC: OR 10:37
PROVIDERS: PCP Family Medicine; Referring Provider Urology; Visit Provider Urology
PROC: (CPT 52356; principal; 2021-12-26 12:15)
DX: N13.2 Hydronephrosis with renal and ureteral calculous obstruction (principal); N21.0 Calculus in bladder; E11.9 Type 2 diabetes mellitus without complications; I10 Essential (primary) hypertension; E78.5 Hyperlipidemia, unspecified; N40.0 Benign prostatic hyperplasia without lower urinary tract symptoms; Z79.84 Long term (current) use of oral hypoglycemic drugs
CPT/HCPCS: 52356; 76000; 82962; J0690; J2405; J2704; J3010

== ENCOUNTER → 2022-01-02 13:38 | Outpatient (CLI) | payer MEDICARE, OTHER, SELFPAY ==
--- NOTE | 2022-01-02 13:40 | DI.RAD.S_ITS ---
PROCEDURE: XR KUB INDICATIONS: calculus of kidney and ureter TECHNIQUE: One view of the abdomen acquired. COMPARISON: [facility], CT, CT ABDOMEN PELVIS WO CON, 12/02/2021, 13:51. FINDINGS: Surgical changes and devices: Bilateral ureteral stents. Bowel: Bowel gas pattern is normal. Soft tissues: Large calcified urinary bladder stone is stable compared to prior CT scan. Visualized solid organ contours appear normal in size. Bones: No suspicious bony lesions. IMPRESSION: Stable large urinary bladder stone. Dictated by: Eva Bradshaw MD, PhD on 01/02/2022 at 17:29 Approved by: Eva Bradshaw MD, PhD on 01/02/2022 at 17:30
== END ==
PROVIDERS: PCP Family Medicine; Referring Provider Urology; Visit Provider Urology
DX: N21.0 Calculus in bladder (principal)
CPT/HCPCS: 74018

== ENCOUNTER → 2022-01-07 11:47 | Outpatient (ROUT) | payer MEDICARE, OTHER, SELFPAY ==
[2022-01-13 14:38] LABS: Ca oxalate monohydr 100 % (.); Size 4x3 mm (.)
== END ==
PROVIDERS: PCP Family Medicine; Visit Provider Urology
DX: N13.2 Hydronephrosis with renal and ureteral calculous obstruction (principal); N21.0 Calculus in bladder; N40.1 Benign prostatic hyperplasia with lower urinary tract symptoms; R39.14 Feeling of incomplete bladder emptying
CPT/HCPCS: 82365; 99215

== ENCOUNTER 2022-01-18 18:55 | Emergency (ER) | payer MEDICARE, OTHER, SELFPAY ==
[2022-01-18] VITALS (25 sets, daily range): BP systolic 103–146; BP diastolic 57–70; PULSE 80–88; RESP 11–28; TEMP 34.9–35.9; O2SAT 85–100; BMI 26.4
[2022-01-18 19:45] LABS: Add Manual Diff / Slide Review NO; Basophils Absolute Auto 100 /uL (0-100); Basophils Percent Auto 0.5 % (0-2); Eosinophils Absolute Auto 0 /uL (0-450); Hematocrit 46.7 % (41-53); Hemoglobin 14.8 g/dL (13.5-17.5); Lymphocytes Absolute Auto 300 /uL (1100-4500); Lymphocytes Percent Auto 2.1 % (25-40); Mean Corpuscular HGB Conc 31.8 % (30-36); Mean Corpuscular Hemoglobin 29.1 PG (26-34); Mean Corpuscular Volume 91.5 fL (80-100); Monocytes Absolute Auto 600 /uL (0-900); Monocytes Percent Auto 4.7 % (3-14); Neutrophils Absolute Auto 12800 /uL (1500-7000); Neutrophils Percent Auto 92.7 % (50-75); Platelet Count 407 X10^3/uL (150-400); Red Cell Distribution Width 13.8 % (11.6-14.8); White Blood Cell Count 13.8 X10^3/uL (4.5-11.0)
[2022-01-18 19:57] LABS: HCO3 VBG 16 mmol/L (23-28); Oxygen Saturation VBG 42 % (70-75); PCO2 VBG 36.2 mmHg (45-50); PO2 VBG 27 mmHg (35-45); Total CO2 VBG 17 mmol/L (24-29); pH VBG 7.25 (7.33-7.43)
[2022-01-18 19:58] LABS: Lactate (Lactic Acid) 3.1 mmol/L (0.7-2.1)
[2022-01-18 19:59] LABS: Alanine Aminotransferase 19 IU/L (<50); Albumin 3.8 g/dL (3.5-5.0); Albumin Globulin Ratio 0.8 (1.0-2.8); Alkaline Phosphatase 184 U/L (38-126); Aspartate Aminotransferase 23 IU/L (17-59); BUN Creatinine Ratio 27.7 (6-22); Bilirubin Total 0.5 mg/dL (0.2-1.3); Calcium 8.8 mg/dL (8.4-10.2); Carbon Dioxide 14 mmol/L (22-32); Chloride 101 mmol/L (98-107); Estimated Glomerular Filt Rate 14.3 mL/min (>60); Globulin 4.6 g/dL (1.7-4.1); Lipase 230 U/L (23-300); Magnesium 3.7 mg/dL (1.6-2.3); Sodium 137 mmol/L (137-145); Total Protein 8.4 g/dL (6.3-8.2)
[2022-01-18 20:05] LABS: Potassium 5.7 mmol/L (3.4-5.1)
[2022-01-18 20:06] LABS: HEMOLYSIS < 15 (0-50)
[2022-01-18 20:08] LABS: NT-proBNP (BNP-Adult 18+) 836 pg/mL (<125)
[2022-01-18 20:10] LABS: Blood Urea Nitrogen 114 mg/dL (9-20); Glucose 656 mg/dL (80-110)
[2022-01-18 20:16] LABS: Procalcitonin 1.29 ng/mL (<0.5)
[2022-01-18 20:28] LABS: Troponin I < 0.012 ng/mL (0.01-0.034)
[2022-01-18] MEDS: INSULIN REGULAR 100 UNIT/ML 3 ML VIAL IV (20:30)
[2022-01-18] MEDS: PIPERACILLIN/TAZO 4.5 GM in SODIUM CHLORIDE 0.9% 100 ML 200 ML IV (20:32)
[2022-01-18] MEDS: SODIUM CHLORIDE 0.9% 1,000 ML 1000 ML IV (20:32)
[2022-01-18 20:37] LABS: COVID19 -Nasal RAPID Negative (Negative)
--- NOTE | 2022-01-18 21:16 | DI.CT.S_ITS ---
PROCEDURE: CT KIDNEY URETER BLADDER (KUB) INDICATIONS: renal failure, recent uretal stents, septic, hyperglycemia TECHNIQUE: Axial sections were acquired from the lung bases to the pubic symphysis. Coronal and sagittal reformats were performed. For radiation dose reduction, the following was used: automated exposure control, adjustment of mA and/or kV according to patient size. COMPARISON: [facility], CT, CT ABDOMEN PELVIS WO CON, 12/02/2021, 13:51. [facility], CT, CT KIDNEY URETER BLADDER (KUB), 03/25/2021, 7:59. FINDINGS: Image quality: Excellent. Lung bases: Unremarkable. Heart: No significant findings. URINARY: Kidneys and ureters: Bilateral ureteral stents are seen in expected positions. Moderate bilateral hydroureteronephrosis does not appear significantly changed when compared to the prior CT from 12/02/2021, however there is now gas throughout the ureters bilaterally. Two small 2-3 mm calculi are seen distal left ureter. 1-2 mm calculi are also seen in the distal right ureter and at the right ureterovesicular junction. Bladder: Large calcified bladder calculus is redemonstrated that appears unchanged. The bladder is decompressed by a Win catheter and contains air. Bladder wall thickening is most likely secondary to underdistention. ABDOMEN: Liver: Unremarkable. Gallbladder: Unremarkable. Biliary ducts: Unremarkable. Pancreas: Unremarkable. Spleen: Unremarkable. Adrenal Glands: Unremarkable. Stomach and Bowel: Stomach, small bowel loops, and colon are unremarkable. Peritoneum: No abnormal intraperitoneal fluid. No free air. Ventral Wall: No hernia. Abdominal Nodes: No enlarged retroperitoneal or mesenteric lymph nodes. Vessels: Aorta and inferior vena cava are normal in size. Mild aortic atherosclerotic calcifications. PELVIS: Pelvic Organs: The prostate is enlarged. Pelvic Nodes: Unremarkable. Miscellaneous: No inguinal hernias are seen. Bones: Multilevel degenerative changes are seen in the spine. IMPRESSION: 1. Interval placement of bilateral ureteral stents. Moderate bilateral hydroureteronephrosis does not appear significantly changed in severity when compared to the prior CT from 12/02/2021. Small calculi are seen within the distal ureters bilaterally. Air within the ureters may be secondary to instrumentation or infection with a gas-forming organism. 2. Bladder is decompressed by a Win catheter and contains air. A large bladder calculus does not appear significantly changed. 3. Prostatomegaly. Dictated by: Jossue Conway M.D. on 01/18/2022 at 22:12 Approved by: Jossue Conway M.D. on 01/18/2022 at 22:20
[2022-01-18] MEDS: LIDOCAINE 2% (GLYDO) 6 ML GEL TOP (21:20)
[2022-01-18] MEDS: SODIUM CHLORIDE 0.9% 2,585.49 ML 861.83 ML IV (21:21)
[2022-01-18 21:22] LABS: Appearance Urine UA SL CLOUDY; Bilirubin Urine UA NEGATIVE (NEGATIVE); Color Urine UA YELLOW; Glucose Urine UA 2+ g/dL (Negative); Ketones Urine UA 1+ (NEGATIVE); Leukocyte Esterase Urine UA 2+ (NEGATIVE); Nitrite Urine UA NEGATIVE (Negative); Occult Blood Urine UA 3+ (Negative); Protein Urine UA 1+ (Negative); Urobilinogen Urine UA 0.2 E.U./dL (0.2)
[2022-01-18 21:37] LABS: Reflexed Lactate in 2 Hours Y
--- NOTE | 2022-01-18 21:47 | ED.GENADULT ---
HPI - General Adult <Christina Rahman MD - Last Filed: 01/23/22 18:10> General Chief complaint: Weakness Stated complaint: generalized weakness Time Seen by Provider: 01/18/22 19:01 Source: EMS Mode of arrival: EMS History of Present Illness HPI narrative: 71-year-old gentleman with diabetes, hyperlipidemia, and hypertension recently presented with hematuria and was found to have bilateral distal ureteral calculi and bilateral hydronephrosis as well as a large bladder stone. On December 26 have bilateral ureteral stents placed with distal ureteral stones remaining. The patient complains of no pain some minor dysuria at the tip of his penis from where the Win catheter is, no flank pain. He does note that he has been increasingly weak over the last 2 days which is what precipitated a call to 911 for transport to the emergency department. Specifically he is having no headaches, cough, chills, palpitations, chest pain, abdominal pain complains of no diarrhea or significant constipation. Related Data Home Medications Medication Instructions Recorded Confirmed multivitamin,[id number] 1 tab PO DAILY 09/01/18 01/07/22 (Complete Multivitamin) aspirin 81 mg tablet,delayed 81 mg PO DAILY 01/13/20 01/07/22 release Previous Rx's Medication Instructions Recorded varicella-zoster gE vac,2 of 2 50 0.5 mcg IM ONCE #1 each 10/04/19 mcg IM suspension (Shingrix gE Antigen Component) glipizide 10 mg tablet, extended 10 mg PO BID #180 tab 02/04/21 release 24 hr amlodipine 5 mg tablet See Rx Instructions .ROUTE 10/07/21 .COMPLEX #90 tab empagliflozin 25 mg tablet See Rx Instructions .ROUTE 10/07/21 (Jardiance) .COMPLEX #90 tab pioglitazone 15 mg tablet See Rx Instructions .ROUTE 10/07/21 .COMPLEX #90 tab simvastatin 20 mg tablet 20 mg PO Q DAY #90 tab 10/07/21 tamsulosin 0.4 mg capsule 0.4 mg PO BEDTIME #90 cap 10/14/21 Glucose: Test Strips #100 each 11/05/21 alogliptin 12.5 mg-metformin 500 See Rx Instructions .ROUTE 12/16/21 mg tablet .COMPLEX #180 tab oxybutynin chloride 5 mg tablet 5 mg PO BID-TID PRN #30 tab 12/26/21 phenazopyridine 200 mg tablet 200 mg PO TID PRN #30 tab 12/26/21 (Pyridium) Allergies Allergy/AdvReac Type Severity Reaction Status Date / Time No Known Drug Allergies Allergy Verified 01/07/22 08:29 Review of Systems <Christina Rahman MD - Last Filed: 01/23/22 18:10> Review of Systems Narrative: Remainder of complete review of systems is otherwise unremarkable except for that included in the HPI. 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 Psoriasis Ureteral stone Well adult exam Surgical History (Updated 01/19/22 @ 03:35 by Christina Rahman MD) Anesthesia Status post amputation of extremity (~05/2013) Family History Mother Hypertension History of heart disease Father Parkinson's disease History of heart disease Social History household members: children Smoking Status: Never smoker alcohol intake: current substance use type: does not use Smoking Status: Never smoker Substance Use Type: does not use Exam <Christina Rahman MD - Last Filed: 01/23/22 18:10> Initial Vital Signs Initial Vital Signs: Vital Signs Pulse Rate 88 01/18/22 19:04 Blood Pressure 132/61 01/18/22 19:04 Pulse Oximetry 97 01/18/22 19:04 General: Appears weak and somewhat pale but in no acute distress. Able to give a complete and coherent history. HEENT: Moist mucous membranes, normal sclera with reactive pupils, Neck: mild JVD, supple Respiratory: Lungs are clear to auscultation, no wheezing no rales no rhonchi. Full and symmetrical air movement Cardiac: Regular rate and rhythm no murmurs no bruits Abdomen: Soft, nontender, good bowel tones, no flank pain Skin: Warm and dry, no rashes Neurologic: Grossly neurologically intact with no obvious asymmetries or abnormalities Extremities: Large contusion and abrasion to the left knee (fell on driveway 4 days ago) Left great toe with mild erythema on the dorsum of toe, no lower extremity edema Psych: Cooperative, appropriate insight and affect <Brenton Negron MD - Last Filed: 01/19/22 09:05> Initial Vital Signs Initial Vital Signs: Vital Signs Pulse Rate 88 01/18/22 19:04 Blood Pressure 132/61 01/18/22 19:04 Pulse Oximetry 97 01/18/22 19:04 Course <Christina Rahman MD - Last Filed: 01/23/22 18:10> Orders Ordered: Discontinued Medications Sodium Chloride (Normal Saline 0.9%) 1,000 mls @ 1,000 mls/hr IV BOLUS ONE Stop: 01/18/22 21:09 Last Infusion: 01/18/22 21:01 Dose: 0 mls/hr Documented by: Admin: 01/18/22 20:32 Dose: 1,000 mls/hr Documented by: GEORGE Piperacillin Sod/Tazobactam (Sod 4.5 gm/ Sodium Chloride) 100 mls @ 200 mls/hr IV NOW ONE Stop: 01/18/22 20:14 Last Infusion: 01/18/22 21:21 Dose: 0 mls/hr Documented by: Admin: 01/18/22 20:32 Dose: 200 mls/hr Documented by: GEORGE Sodium Chloride (Normal Saline 0.9%) 2,585.49 mls @ 861.83 mls/hr 30 ml/kg infuse over 3 hr (2585.49 ml) IV NOW ONE Stop: 01/19/22 00:17 Last Infusion: 01/19/22 04:16 Dose: 861 mls/hr Documented by: Admin: 01/18/22 21:21 Dose: 861.83 mls/hr Documented by: BERTRAM Piperacillin Sod/Tazobactam (Sod 3.375 gm/ Sodium Chloride) 100 mls @ 25 mls/hr IV Q8H ANTHONY Sodium Chloride (Normal Saline 0.9%) 1,000 mls @ 150 mls/hr IV CONT ANTHONY Last Infusion: 01/19/22 10:25 Dose: 0 mls/hr Documented by: Admin: 01/19/22 04:35 Dose: 150 mls/hr Documented by: GEORGE INSULIN DRIP PREMIX (Myxredlin Drip Premix) 100 unit in 100 mls @ 6 mls/hr IV TITRATE ANTHONY; Protocol Last Titration: 01/19/22 10:24 Dose: 0 mls/hr, 0 mls/hr Documented by: PANKAJ Cosigned by: JESSICA Titration: 01/19/22 09:36 Dose: 2 mls/hr, 2 mls/hr Documented by: PANKAJ Cosigned by: BOBBY Titration: 01/19/22 08:40 Dose: 7 mls/hr, 7 mls/hr Documented by: PANKAJ Cosigned by: JESSICA Titration: 01/19/22 07:24 Dose: 4 mls/hr, 4 mls/hr Documented by: JESSICA Cosigned by: STEFAN Titration: 01/19/22 06:04 Dose: 12 mls/hr, 12 mls/hr Documented by: STEFAN Cosigned by: GEORGE Admin: 01/19/22 03:13 Dose: 6 mls/hr, 6 mls/hr Documented by: GEORGE Cosigned by: STEFAN Piperacillin Sod/Tazobactam (Sod 2.25 gm/ Sodium Chloride) 100 mls @ 200 mls/hr IV Q8H ANTHONY Last Admin: 01/19/22 10:26 Dose: Not Given Documented by: Infusion: 01/19/22 04:58 Dose: 0 mls/hr Documented by: Admin: 01/19/22 04:01 Dose: 200 mls/hr Documented by: GEORGE Insulin Human Regular (Insulin Regular 100 Unit/Ml 3 Ml Vial) 5 unit IV NOW ONE Stop: 01/18/22 20:13 Last Admin: 01/18/22 20:30 Dose: 5 unit Documented by: GEORGE Cosigned by: STEFAN Lidocaine HCl (Lidocaine 2% (Glydo) 6 Ml Gel) 6 ml TOP NOW ONE Stop: 01/18/22 21:02 Last Admin: 01/18/22 21:20 Dose: 6 ml Documented by: BERTRAM Lorazepam (Lorazepam 2 Mg/Ml Inj) 0.5 mg IV NOW ONE Stop: 01/19/22 01:47 Last Admin: 01/19/22 01:55 Dose: 0.5 mg Documented by: GEORGE Risperidone (Risperidone 1 Mg Tablet) 1 mg PO NOW ONE Stop: 01/19/22 04:26 Last Admin: 01/19/22 04:48 Dose: 1 mg Documented by: GEORGE Vital Signs Vital signs: Vital Signs - 8 hr 01/19/22 00:00 01/19/22 00:15 01/19/22 00:30 Temperature 96.8 F L 97.0 F L 97.2 F L Pulse Rate 87 91 H 89 Respiratory Rate 16 22 17 Blood Pressure Pulse Oximetry 100 100 100 01/19/22 00:45 01/19/22 01:00 01/19/22 01:15 Temperature 97.2 F L 97.3 F L 97.3 F L Pulse Rate 92 H 90 91 H Respiratory Rate 15 18 Blood Pressure Pulse Oximetry 94 100 100 01/19/22 01:30 01/19/22 01:45 01/19/22 03:00 Temperature 97.5 F L 97.5 F L 97.7 F Pulse Rate 91 H 91 H 94 H Respiratory Rate 19 17 20 Blood Pressure Pulse Oximetry 100 100 100 01/19/22 03:15 01/19/22 03:30 01/19/22 03:45 Temperature 97.9 F 97.9 F 97.9 F Pulse Rate 93 H 95 H 96 H Respiratory Rate 21 24 26 H Blood Pressure Pulse Oximetry 100 100 100 01/19/22 04:00 01/19/22 04:15 01/19/22 04:30 Temperature 98.1 F 98.2 F 98.2 F Pulse Rate 96 H 97 H 99 H Respiratory Rate 28 H 23 25 H Blood Pressure Pulse Oximetry 100 100 100 01/19/22 04:45 01/19/22 05:00 01/19/22 05:15 Temperature 98.4 F 98.4 F 98.6 F Pulse Rate 97 H 100 H 99 H Respiratory Rate 18 12 16 Blood Pressure Pulse Oximetry 100 100 99 01/19/22 05:30 01/19/22 05:45 01/19/22 06:00 Temperature 98.6 F 98.8 F 98.8 F Pulse Rate 99 H 99 H 98 H Respiratory Rate 13 23 21 Blood Pressure Pulse Oximetry 100 99 99 01/19/22 06:15 01/19/22 06:29 01/19/22 06:30 Temperature 98.8 F 99.0 F 99.0 F Pulse Rate 100 H 100 H 100 H Respiratory Rate 16 22 20 Blood Pressure 110/57 L 107/57 L Pulse Oximetry 99 99 99 01/19/22 06:45 01/19/22 07:00 01/19/22 07:15 Temperature 99.1 F 99.1 F 99.3 F Pulse Rate 100 H 100 H 100 H Respiratory Rate 23 25 H 23 Blood Pressure 102/61 Pulse Oximetry 99 99 99 01/19/22 07:30 Temperature 99.3 F Pulse Rate 99 H Respiratory Rate 23 Blood Pressure 110/56 L Pulse Oximetry 99 <Brenton Negron MD - Last Filed: 01/19/22 09:05> Course Course Narrative: Care was assumed from Dr. Rahman at 7:00 a.m. The patient is septic. He has bilateral urethral stones, stents have been placed. He currently has pyelonephritis. He has acute renal failure with increased BUN and creatinine. He had notable hyperglycemia and hyperkalemia. He is currently on insulin drip. His potassium and glucose have improved significantly with repeat lab testing this morning. he has received Zosyn. IV fluids continue. Patient's vitals are stable. He is comfortable/sleeping when I attempted to interview him. He is clinically stable to proceed with transfer.Ranjan Doherty MD 01/19/22@ 0844. Orders Ordered: Discontinued Medications Sodium Chloride (Normal Saline 0.9%) 1,000 mls @ 1,000 mls/hr IV BOLUS ONE Stop: 01/18/22 21:09 Last Infusion: 01/18/22 21:01 Dose: 0 mls/hr Documented by: Admin: 01/18/22 20:32 Dose: 1,000 mls/hr Documented by: GEORGE Piperacillin Sod/Tazobactam (Sod 4.5 gm/ Sodium Chloride) 100 mls @ 200 mls/hr IV NOW ONE Stop: 01/18/22 20:14 Last Infusion: 01/18/22 21:21 Dose: 0 mls/hr Documented by: Admin: 01/18/22 20:32 Dose: 200 mls/hr Documented by: GEORGE Sodium Chloride (Normal Saline 0.9%) 2,585.49 mls @ 861.83 mls/hr 30 ml/kg infuse over 3 hr (2585.49 ml) IV NOW ONE Stop: 01/19/22 00:17 Last Infusion: 01/19/22 04:16 Dose: 861 mls/hr Documented by: Admin: 01/18/22 21:21 Dose: 861.83 mls/hr Documented by: BERTRAM Piperacillin Sod/Tazobactam (Sod 3.375 gm/ Sodium Chloride) 100 mls @ 25 mls/hr IV Q8H ANTHONY Sodium Chloride (Normal Saline 0.9%) 1,000 mls @ 150 mls/hr IV CONT ANTHONY Last Infusion: 01/19/22 10:25 Dose: 0 mls/hr Documented by: Admin: 01/19/22 04:35 Dose: 150 mls/hr Documented by: GEORGE INSULIN DRIP PREMIX (Myxredlin Drip Premix) 100 unit in 100 mls @ 6 mls/hr IV TITRATE ANTHONY; Protocol Last Titration: 01/19/22 10:24 Dose: 0 mls/hr, 0 mls/hr Documented by: PANKAJ Cosigned by: JESSICA Titration: 01/19/22 09:36 Dose: 2 mls/hr, 2 mls/hr Documented by: PANKAJ Cosigned by: BOBBY Titration: 01/19/22 08:40 Dose: 7 mls/hr, 7 mls/hr Documented by: PANKAJ Cosigned by: JESSICA Titration: 01/19/22 07:24 Dose: 4 mls/hr, 4 mls/hr Documented by: JESSICA Cosigned by: STEFAN Titration: 01/19/22 06:04 Dose: 12 mls/hr, 12 mls/hr Documented by: STEFAN Cosigned by: GEORGE Admin: 01/19/22 03:13 Dose: 6 mls/hr, 6 mls/hr Documented by: GEORGE Cosigned by: STEFAN Piperacillin Sod/Tazobactam (Sod 2.25 gm/ Sodium Chloride) 100 mls @ 200 mls/hr IV Q8H ANTHONY Last Admin: 01/19/22 10:26 Dose: Not Given Documented by: Infusion: 01/19/22 04:58 Dose: 0 mls/hr Documented by: Admin: 01/19/22 04:01 Dose: 200 mls/hr Documented by: GEORGE Insulin Human Regular (Insulin Regular 100 Unit/Ml 3 Ml Vial) 5 unit IV NOW ONE Stop: 01/18/22 20:13 Last Admin: 01/18/22 20:30 Dose: 5 unit Documented by: GEORGE Cosigned by: STEFAN Lidocaine HCl (Lidocaine 2% (Glydo) 6 Ml Gel) 6 ml TOP NOW ONE Stop: 01/18/22 21:02 Last Admin: 01/18/22 21:20 Dose: 6 ml Documented by: BERTRAM Lorazepam (Lorazepam 2 Mg/Ml Inj) 0.5 mg IV NOW ONE Stop: 01/19/22 01:47 Last Admin: 01/19/22 01:55 Dose: 0.5 mg Documented by: GEORGE Risperidone (Risperidone 1 Mg Tablet) 1 mg PO NOW ONE Stop: 01/19/22 04:26 Last Admin: 01/19/22 04:48 Dose: 1 mg Documented by: GEORGE Vital Signs Vital signs: Vital Signs - 8 hr 01/19/22 00:00 01/19/22 00:15 01/19/22 00:30 Temperature 96.8 F L 97.0 F L 97.2 F L Pulse Rate 87 91 H 89 Respiratory Rate 16 22 17 Blood Pressure Pulse Oximetry 100 100 100 01/19/22 00:45 01/19/22 01:00 01/19/22 01:15 Temperature 97.2 F L 97.3 F L 97.3 F L Pulse Rate 92 H 90 91 H Respiratory Rate 15 18 Blood Pressure Pulse Oximetry 94 100 100 01/19/22 01:30 01/19/22 01:45 01/19/22 03:00 Temperature 97.5 F L 97.5 F L 97.7 F Pulse Rate 91 H 91 H 94 H Respiratory Rate 19 17 20 Blood Pressure Pulse Oximetry 100 100 100 01/19/22 03:15 01/19/22 03:30 01/19/22 03:45 Temperature 97.9 F 97.9 F 97.9 F Pulse Rate 93 H 95 H 96 H Respiratory Rate 21 24 26 H Blood Pressure Pulse Oximetry 100 100 100 01/19/22 04:00 01/19/22 04:15 01/19/22 04:30 Temperature 98.1 F 98.2 F 98.2 F Pulse Rate 96 H 97 H 99 H Respiratory Rate 28 H 23 25 H Blood Pressure Pulse Oximetry 100 100 100 01/19/22 04:45 01/19/22 05:00 01/19/22 05:15 Temperature 98.4 F 98.4 F 98.6 F Pulse Rate 97 H 100 H 99 H Respiratory Rate 18 12 16 Blood Pressure Pulse Oximetry 100 100 99 01/19/22 05:30 01/19/22 05:45 01/19/22 06:00 Temperature 98.6 F 98.8 F 98.8 F Pulse Rate 99 H 99 H 98 H Respiratory Rate 13 23 21 Blood Pressure Pulse Oximetry 100 99 99 01/19/22 06:15 01/19/22 06:29 01/19/22 06:30 Temperature 98.8 F 99.0 F 99.0 F Pulse Rate 100 H 100 H 100 H Respiratory Rate 16 22 20 Blood Pressure 110/57 L 107/57 L Pulse Oximetry 99 99 99 01/19/22 06:45 01/19/22 07:00 01/19/22 07:15 Temperature 99.1 F 99.1 F 99.3 F Pulse Rate 100 H 100 H 100 H Respiratory Rate 23 25 H 23 Blood Pressure 102/61 Pulse Oximetry 99 99 99 01/19/22 07:30 Temperature 99.3 F Pulse Rate 99 H Respiratory Rate 23 Blood Pressure 110/56 L Pulse Oximetry 99 Medical Decision Making <Christina Rahman MD - Last Filed: 01/23/22 18:10> Lab Data Result diagrams: 01/19/22 07:45 01/19/22 07:45 Labs: Lab Results 01/18/22 01/18/22 01/18/22 Range/Units 19:30 19:30 19:30 WBC 13.8 H (4.5-11.0) X10^3/uL RBC 5.10 (4.5-5.9) X10^6/uL Hgb 14.8 (13.5-17.5) g/dL Hct 46.7 (41-53) % MCV 91.5 (80-100) fL MCH 29.1 (26-34) PG MCHC 31.8 (30-36) % RDW 13.8 (11.6-14.8) % Plt Count 407 H (150-400) X10^3/uL Neut % (Auto) 92.7 H (50-75) % Lymph % (Auto) 2.1 L (25-40) % Cooper % (Auto) 4.7 (3-14) % Eos % (Auto) 0.0 L (2-4) % Baso % (Auto) 0.5 (0-2) % Neut # (Auto) 52194 H (5699-9236) /uL Lymph # (Auto) 300 L (7782-3940) /uL Cooper # (Auto) 600 (0-900) /uL Eos # (Auto) 0 (0-450) /uL Baso # (Auto) 100 (0-100) /uL VBG pH (7.33-7.43) VBG pCO2 (45-50) mmHg VBG pO2 (35-45) mmHg VBG HCO3 (23-28) mmol/L VBG Total CO2 (24-29) mmol/L VBG O2 Saturation (70-75) % VBG Base Excess (0-4) mmol/L Sodium 137 (137-145) mmol/L Potassium 5.7 H (3.4-5.1) mmol/L Chloride 101 (98-107) mmol/L Carbon Dioxide 14 L (22-32) mmol/L BUN 114 H* (9-20) mg/dL Creatinine 4.11 H (0.66-1.25) mg/dL Estimated GFR 14.3 L (>60) mL/min BUN/Creatinine Ratio 27.7 H (6-22) Glucose 656 H* (80-110) mg/dL Lactate 3.1 H (0.7-2.1) mmol/L Calcium 8.8 (8.4-10.2) mg/dL Magnesium 3.7 H (1.6-2.3) mg/dL Total Bilirubin 0.5 (0.2-1.3) mg/dL AST 23 (17-59) IU/L ALT 19 (<50) IU/L Alkaline Phosphatase 184 H (38-126) U/L Troponin I (0.01-0.034) ng/mL NT-Pro-B Natriuret Pep 836 H (<125) pg/mL Total Protein 8.4 H (6.3-8.2) g/dL Albumin 3.8 (3.5-5.0) g/dL Globulin 4.6 H (1.7-4.1) g/dL Albumin/Globulin Ratio 0.8 L (1.0-2.8) Lipase 230 (23-300) U/L Procalcitonin 1.29 H (<0.5) ng/mL Urine Color Urine Appearance Urine pH (4.5-8.0) Ur Specific [place] (1.000-1.035) Urine Protein (Negative) Urine Glucose (UA) (Negative) g/dL Urine Ketones (NEGATIVE) Urine Occult Blood (Negative) Urine Nitrate (Negative) Urine Bilirubin (NEGATIVE) Urine Urobilinogen (0.2) E.U./dL Ur Leukocyte Esterase (NEGATIVE) Urine RBC (0-5/HPF) Urine WBC (0-5/HPF) Urine Bacteria (None) Urine Yeast (None) Ur Culture Indicated? SARS-CoV-2 (PCR) (Negative) 01/18/22 01/18/22 01/18/22 Range/Units 19:30 19:48 19:52 WBC (4.5-11.0) X10^3/uL RBC (4.5-5.9) X10^6/uL Hgb (13.5-17.5) g/dL Hct (41-53) % MCV (80-100) fL MCH (26-34) PG MCHC (30-36) % RDW (11.6-14.8) % Plt Count (150-400) X10^3/uL Neut % (Auto) (50-75) % Lymph % (Auto) (25-40) % Cooper % (Auto) (3-14) % Eos % (Auto) (2-4) % Baso % (Auto) (0-2) % Neut # (Auto) (6285-8468) /uL Lymph # (Auto) (2092-7893) /uL Cooper # (Auto) (0-900) /uL Eos # (Auto) (0-450) /uL Baso # (Auto) (0-100) /uL VBG pH 7.25 L (7.33-7.43) VBG pCO2 36.2 L (45-50) mmHg VBG pO2 27 L (35-45) mmHg VBG HCO3 16 L (23-28) mmol/L VBG Total CO2 17 L (24-29) mmol/L VBG O2 Saturation 42 L (70-75) % VBG Base Excess -11.0 L (0-4) mmol/L Sodium (137-145) mmol/L Potassium (3.4-5.1) mmol/L Chloride (98-107) mmol/L Carbon Dioxide (22-32) mmol/L BUN (9-20) mg/dL Creatinine (0.66-1.25) mg/dL Estimated GFR (>60) mL/min BUN/Creatinine Ratio (6-22) Glucose (80-110) mg/dL Lactate (0.7-2.1) mmol/L Calcium (8.4-10.2) mg/dL Magnesium (1.6-2.3) mg/dL Total Bilirubin (0.2-1.3) mg/dL AST (17-59) IU/L ALT (<50) IU/L Alkaline Phosphatase (38-126) U/L Troponin I < 0.012 (0.01-0.034) ng/mL NT-Pro-B Natriuret Pep (<125) pg/mL Total Protein (6.3-8.2) g/dL Albumin (3.5-5.0) g/dL Globulin (1.7-4.1) g/dL Albumin/Globulin Ratio (1.0-2.8) Lipase (23-300) U/L Procalcitonin (<0.5) ng/mL Urine Color Urine Appearance Urine pH (4.5-8.0) Ur Specific [place] (1.000-1.035) Urine Protein (Negative) Urine Glucose (UA) (Negative) g/dL Urine Ketones (NEGATIVE) Urine Occult Blood (Negative) Urine Nitrate (Negative) Urine Bilirubin (NEGATIVE) Urine Urobilinogen (0.2) E.U./dL Ur Leukocyte Esterase (NEGATIVE) Urine RBC (0-5/HPF) Urine WBC (0-5/HPF) Urine Bacteria (None) Urine Yeast (None) Ur Culture Indicated? SARS-CoV-2 (PCR) Negative (Negative) 01/18/22 01/18/22 01/19/22 Range/Units 21:10 22:40 03:45 WBC (4.5-11.0) X10^3/uL RBC (4.5-5.9) X10^6/uL Hgb (13.5-17.5) g/dL Hct (41-53) % MCV (80-100) fL MCH (26-34) PG MCHC (30-36) % RDW (11.6-14.8) % Plt Count (150-400) X10^3/uL Neut % (Auto) (50-75) % Lymph % (Auto) (25-40) % Cooper % (Auto) (3-14) % Eos % (Auto) (2-4) % Baso % (Auto) (0-2) % Neut # (Auto) (2169-6146) /uL Lymph # (Auto) (3212-6487) /uL Cooper # (Auto) (0-900) /uL Eos # (Auto) (0-450) /uL Baso # (Auto) (0-100) /uL VBG pH (7.33-7.43) VBG pCO2 (45-50) mmHg VBG pO2 (35-45) mmHg VBG HCO3 (23-28) mmol/L VBG Total CO2 (24-29) mmol/L VBG O2 Saturation (70-75) % VBG Base Excess (0-4) mmol/L Sodium 140 (137-145) mmol/L Potassium 5.5 H (3.4-5.1) mmol/L Chloride 106 (98-107) mmol/L Carbon Dioxide 16 L (22-32) mmol/L BUN 115 H* (9-20) mg/dL Creatinine 4.07 H (0.66-1.25) mg/dL Estimated GFR 14.5 L (>60) mL/min BUN/Creatinine Ratio 28.3 H (6-22) Glucose 521 H* (80-110) mg/dL Lactate 2.0 (0.7-2.1) mmol/L Calcium 8.7 (8.4-10.2) mg/dL Magnesium (1.6-2.3) mg/dL Total Bilirubin (0.2-1.3) mg/dL AST (17-59) IU/L ALT (<50) IU/L Alkaline Phosphatase (38-126) U/L Troponin I (0.01-0.034) ng/mL NT-Pro-B Natriuret Pep (<125) pg/mL Total Protein (6.3-8.2) g/dL Albumin (3.5-5.0) g/dL Globulin (1.7-4.1) g/dL Albumin/Globulin Ratio (1.0-2.8) Lipase (23-300) U/L Procalcitonin (<0.5) ng/mL Urine Color Yellow Urine Appearance Sl cloudy Urine pH 6.0 (4.5-8.0) Ur Specific [place] 1.010 (1.000-1.035) Urine Protein 1+ H (Negative) Urine Glucose (UA) 2+ H (Negative) g/dL Urine Ketones 1+ H (NEGATIVE) Urine Occult Blood 3+ H (Negative) Urine Nitrate Negative (Negative) Urine Bilirubin Negative (NEGATIVE) Urine Urobilinogen 0.2 (0.2) E.U./dL Ur Leukocyte Esterase 2+ H (NEGATIVE) Urine RBC 1-5/hpf D (0-5/HPF) Urine WBC >100/hpf H (0-5/HPF) Urine Bacteria Occasional (0-1) (None) Urine Yeast 1-5/hpf H (None) Ur Culture Indicated? Specimen cultured SARS-CoV-2 (PCR) (Negative) 01/19/22 01/19/22 Range/Units 07:45 07:45 WBC 14.8 H (4.5-11.0) X10^3/uL RBC 4.67 (4.5-5.9) X10^6/uL Hgb 13.6 (13.5-17.5) g/dL Hct 40.8 L (41-53) % MCV 87.2 D (80-100) fL MCH 29.0 (26-34) PG MCHC 33.3 (30-36) % RDW 12.8 (11.6-14.8) % Plt Count 418 H (150-400) X10^3/uL Neut % (Auto) (50-75) % Lymph % (Auto) (25-40) % Cooper % (Auto) (3-14) % Eos % (Auto) (2-4) % Baso % (Auto) (0-2) % Neut # (Auto) (1585-3239) /uL Lymph # (Auto) (1039-4974) /uL Cooper # (Auto) (0-900) /uL Eos # (Auto) (0-450) /uL Baso # (Auto) (0-100) /uL VBG pH (7.33-7.43) VBG pCO2 (45-50) mmHg VBG pO2 (35-45) mmHg VBG HCO3 (23-28) mmol/L VBG Total CO2 (24-29) mmol/L VBG O2 Saturation (70-75) % VBG Base Excess (0-4) mmol/L Sodium 147 H (137-145) mmol/L Potassium 4.6 (3.4-5.1) mmol/L Chloride 112 H (98-107) mmol/L Carbon Dioxide 20 L (22-32) mmol/L BUN 112 H* (9-20) mg/dL Creatinine 4.21 H (0.66-1.25) mg/dL Estimated GFR 13.9 L (>60) mL/min BUN/Creatinine Ratio 26.6 H (6-22) Glucose 250 H D (80-110) mg/dL Lactate (0.7-2.1) mmol/L Calcium 8.6 (8.4-10.2) mg/dL Magnesium (1.6-2.3) mg/dL Total Bilirubin 0.4 (0.2-1.3) mg/dL AST 18 (17-59) IU/L ALT 16 (<50) IU/L Alkaline Phosphatase 154 H (38-126) U/L Troponin I (0.01-0.034) ng/mL NT-Pro-B Natriuret Pep (<125) pg/mL Total Protein 7.7 (6.3-8.2) g/dL Albumin 3.3 L (3.5-5.0) g/dL Globulin 4.4 H (1.7-4.1) g/dL Albumin/Globulin Ratio 0.8 L (1.0-2.8) Lipase (23-300) U/L Procalcitonin (<0.5) ng/mL Urine Color Urine Appearance Urine pH (4.5-8.0) Ur Specific [place] (1.000-1.035) Urine Protein (Negative) Urine Glucose (UA) (Negative) g/dL Urine Ketones (NEGATIVE) Urine Occult Blood (Negative) Urine Nitrate (Negative) Urine Bilirubin (NEGATIVE) Urine Urobilinogen (0.2) E.U./dL Ur Leukocyte Esterase (NEGATIVE) Urine RBC (0-5/HPF) Urine WBC (0-5/HPF) Urine Bacteria (None) Urine Yeast (None) Ur Culture Indicated? SARS-CoV-2 (PCR) (Negative) Point of Care Testing Glucose POC 186 Point of care testing: Point of Care Testing Glucose POC 186 ECG Data Interpretation: Sinus rhythm at a rate of 92 Right bundle branch block Minimally peaked T-waves No acute ischemic changes MDM Narrative Medical decision making narrative: 71-year-old gentleman with bilateral distal ureteral stones with bilateral stents in place and a known bladder calculi presents with weakness he is also mildly hypothermic, he is not tachycardic but blood pressure does appear to be falling. Urine does look infected he has no signs of infection his chest or abdomen otherwise. He is noted to be in acute renal failure with a creatinine at 4.1. His potassium slightly elevated 5.7 with slightly peaked T-waves on EKG he is given insulin for the hyperglycemia as well as hyperkalemia and 30 per kilos fluid bolus is started and Zosyn is initiated. 1am: Patient awoke confused somewhat delirious pulling out IVs. Temperatures up to 97. He is not hypoxic and blood pressure is appropriate. He is given half a mg of Ativan and IVs are replaced, he is reoriented to time and situation. Multiple phone calls been placed to over 11 different facilities to find admitting options for this gentleman with nephrology available given his acute renal failure. At this point there are no beds and we will continue treating him here in the emergency department. Because of his sepsis and renal failure better blood sugar control is appropriate and a an insulin drip is initiated. He does have an anion gap of 22, acidotic with a venous blood gas pH of 7.25. 420am repeat BMP shows slight improvement with anion gap decreasing to 18. Delirium continues. Will try adding a mg of risperidone. He is not significantly hypotensive nor hypoxic as an explanation for the acute delirium. 620 Spoke with , there hip viewing staffing at this time but do expect to be able to except this gentleman in transfer sometime today. Dr. Saleem, urology, is updated on findings and plan. He agrees with transfer at this time and will let Dr. Montanez, the patient's urologist know of change in status and plans [id number] Dr Noemy Adames, Hospitalist at [facility]. Accepted patient. Will call when bed is avialable to arrange transport <Brenton Negron MD - Last Filed: 01/19/22 09:05> Lab Data Labs: Lab Results 01/18/22 01/18/22 01/18/22 Range/Units 19:30 19:30 19:30 WBC 13.8 H (4.5-11.0) X10^3/uL RBC 5.10 (4.5-5.9) X10^6/uL Hgb 14.8 (13.5-17.5) g/dL Hct 46.7 (41-53) % MCV 91.5 (80-100) fL MCH 29.1 (26-34) PG MCHC 31.8 (30-36) % RDW 13.8 (11.6-14.8) % Plt Count 407 H (150-400) X10^3/uL Neut % (Auto) 92.7 H (50-75) % Lymph % (Auto) 2.1 L (25-40) % Cooper % (Auto) 4.7 (3-14) % Eos % (Auto) 0.0 L (2-4) % Baso % (Auto) 0.5 (0-2) % Neut # (Auto) 74372 H (4735-4369) /uL Lymph # (Auto) 300 L (3389-6748) /uL Cooper # (Auto) 600 (0-900) /uL Eos # (Auto) 0 (0-450) /uL Baso # (Auto) 100 (0-100) /uL VBG pH (7.33-7.43) VBG pCO2 (45-50) mmHg VBG pO2 (35-45) mmHg VBG HCO3 (23-28) mmol/L VBG Total CO2 (24-29) mmol/L VBG O2 Saturation (70-75) % VBG Base Excess (0-4) mmol/L Sodium 137 (137-145) mmol/L Potassium 5.7 H (3.4-5.1) mmol/L Chloride 101 (98-107) mmol/L Carbon Dioxide 14 L (22-32) mmol/L BUN 114 H* (9-20) mg/dL Creatinine 4.11 H (0.66-1.25) mg/dL Estimated GFR 14.3 L (>60) mL/min BUN/Creatinine Ratio 27.7 H (6-22) Glucose 656 H* (80-110) mg/dL Lactate 3.1 H (0.7-2.1) mmol/L Calcium 8.8 (8.4-10.2) mg/dL Magnesium 3.7 H (1.6-2.3) mg/dL Total Bilirubin 0.5 (0.2-1.3) mg/dL AST 23 (17-59) IU/L ALT 19 (<50) IU/L Alkaline Phosphatase 184 H (38-126) U/L Troponin I (0.01-0.034) ng/mL NT-Pro-B Natriuret Pep 836 H (<125) pg/mL Total Protein 8.4 H (6.3-8.2) g/dL Albumin 3.8 (3.5-5.0) g/dL Globulin 4.6 H (1.7-4.1) g/dL Albumin/Globulin Ratio 0.8 L (1.0-2.8) Lipase 230 (23-300) U/L Procalcitonin 1.29 H (<0.5) ng/mL Urine Color Urine Appearance Urine pH (4.5-8.0) Ur Specific [place] (1.000-1.035) Urine Protein (Negative) Urine Glucose (UA) (Negative) g/dL Urine Ketones (NEGATIVE) Urine Occult Blood (Negative) Urine Nitrate (Negative) Urine Bilirubin (NEGATIVE) Urine Urobilinogen (0.2) E.U./dL Ur Leukocyte Esterase (NEGATIVE) Urine RBC (0-5/HPF) Urine WBC (0-5/HPF) Urine Bacteria (None) Urine Yeast (None) Ur Culture Indicated? SARS-CoV-2 (PCR) (Negative) 03/12/22 03/12/22 03/12/22 Range/Units 19:30 19:48 19:52 WBC (4.5-11.0) X10^3/uL RBC (4.5-5.9) X10^6/uL Hgb (13.5-17.5) g/dL Hct (41-53) % MCV (80-100) fL MCH (26-34) PG MCHC (30-36) % RDW (11.6-14.8) % Plt Count (150-400) X10^3/uL Neut % (Auto) (50-75) % Lymph % (Auto) (25-40) % Cooper % (Auto) (3-14) % Eos % (Auto) (2-4) % Baso % (Auto) (0-2) % Neut # (Auto) (4496-0466) /uL Lymph # (Auto) (2819-9365) /uL Cooper # (Auto) (0-900) /uL Eos # (Auto) (0-450) /uL Baso # (Auto) (0-100) /uL VBG pH 7.25 L (7.33-7.43) VBG pCO2 36.2 L (45-50) mmHg VBG pO2 27 L (35-45) mmHg VBG HCO3 16 L (23-28) mmol/L VBG Total CO2 17 L (24-29) mmol/L VBG O2 Saturation 42 L (70-75) % VBG Base Excess -11.0 L (0-4) mmol/L Sodium (137-145) mmol/L Potassium (3.4-5.1) mmol/L Chloride (98-107) mmol/L Carbon Dioxide (22-32) mmol/L BUN (9-20) mg/dL Creatinine (0.66-1.25) mg/dL Estimated GFR (>60) mL/min BUN/Creatinine Ratio (6-22) Glucose (80-110) mg/dL Lactate (0.7-2.1) mmol/L Calcium (8.4-10.2) mg/dL Magnesium (1.6-2.3) mg/dL Total Bilirubin (0.2-1.3) mg/dL AST (17-59) IU/L ALT (<50) IU/L Alkaline Phosphatase (38-126) U/L Troponin I < 0.012 (0.01-0.034) ng/mL NT-Pro-B Natriuret Pep (<125) pg/mL Total Protein (6.3-8.2) g/dL Albumin (3.5-5.0) g/dL Globulin (1.7-4.1) g/dL Albumin/Globulin Ratio (1.0-2.8) Lipase (23-300) U/L Procalcitonin (<0.5) ng/mL Urine Color Urine Appearance Urine pH (4.5-8.0) Ur Specific [place] (1.000-1.035) Urine Protein (Negative) Urine Glucose (UA) (Negative) g/dL Urine Ketones (NEGATIVE) Urine Occult Blood (Negative) Urine Nitrate (Negative) Urine Bilirubin (NEGATIVE) Urine Urobilinogen (0.2) E.U./dL Ur Leukocyte Esterase (NEGATIVE) Urine RBC (0-5/HPF) Urine WBC (0-5/HPF) Urine Bacteria (None) Urine Yeast (None) Ur Culture Indicated? SARS-CoV-2 (PCR) Negative (Negative) 01/18/22 01/18/22 01/19/22 Range/Units 21:10 22:40 03:45 WBC (4.5-11.0) X10^3/uL RBC (4.5-5.9) X10^6/uL Hgb (13.5-17.5) g/dL Hct (41-53) % MCV (80-100) fL MCH (26-34) PG MCHC (30-36) % RDW (11.6-14.8) % Plt Count (150-400) X10^3/uL Neut % (Auto) (50-75) % Lymph % (Auto) (25-40) % Cooper % (Auto) (3-14) % Eos % (Auto) (2-4) % Baso % (Auto) (0-2) % Neut # (Auto) (3419-6294) /uL Lymph # (Auto) (0101-4603) /uL [place] # (Auto) (0-900) /uL Eos # (Auto) (0-450) /uL Baso # (Auto) (0-100) /uL VBG pH (7.33-7.43) VBG pCO2 (45-50) mmHg VBG pO2 (35-45) mmHg VBG HCO3 (23-28) mmol/L VBG Total CO2 (24-29) mmol/L VBG O2 Saturation (70-75) % VBG Base Excess (0-4) mmol/L Sodium 140 (137-145) mmol/L Potassium 5.5 H (3.4-5.1) mmol/L Chloride 106 (98-107) mmol/L Carbon Dioxide 16 L (22-32) mmol/L BUN 115 H* (9-20) mg/dL Creatinine 4.07 H (0.66-1.25) mg/dL Estimated GFR 14.5 L (>60) mL/min BUN/Creatinine Ratio 28.3 H (6-22) Glucose 521 H* (80-110) mg/dL Lactate 2.0 (0.7-2.1) mmol/L Calcium 8.7 (8.4-10.2) mg/dL Magnesium (1.6-2.3) mg/dL Total Bilirubin (0.2-1.3) mg/dL AST (17-59) IU/L ALT (<50) IU/L Alkaline Phosphatase (38-126) U/L Troponin I (0.01-0.034) ng/mL NT-Pro-B Natriuret Pep (<125) pg/mL Total Protein (6.3-8.2) g/dL Albumin (3.5-5.0) g/dL Globulin (1.7-4.1) g/dL Albumin/Globulin Ratio (1.0-2.8) Lipase (23-300) U/L Procalcitonin (<0.5) ng/mL Urine Color Yellow Urine Appearance Sl cloudy Urine pH 6.0 (4.5-8.0) Ur Specific [place] 1.010 (1.000-1.035) Urine Protein 1+ H (Negative) Urine Glucose (UA) 2+ H (Negative) g/dL Urine Ketones 1+ H (NEGATIVE) Urine Occult Blood 3+ H (Negative) Urine Nitrate Negative (Negative) Urine Bilirubin Negative (NEGATIVE) Urine Urobilinogen 0.2 (0.2) E.U./dL Ur Leukocyte Esterase 2+ H (NEGATIVE) Urine RBC 1-5/hpf D (0-5/HPF) Urine WBC >100/hpf H (0-5/HPF) Urine Bacteria Occasional (0-1) (None) Urine Yeast 1-5/hpf H (None) Ur Culture Indicated? Specimen cultured SARS-CoV-2 (PCR) (Negative) 01/19/22 01/19/22 Range/Units 07:45 07:45 WBC 14.8 H (4.5-11.0) X10^3/uL RBC 4.67 (4.5-5.9) X10^6/uL Hgb 13.6 (13.5-17.5) g/dL Hct 40.8 L (41-53) % MCV 87.2 D (80-100) fL MCH 29.0 (26-34) PG MCHC 33.3 (30-36) % RDW 12.8 (11.6-14.8) % Plt Count 418 H (150-400) X10^3/uL Neut % (Auto) (50-75) % Lymph % (Auto) (25-40) % [place] % (Auto) (3-14) % Eos % (Auto) (2-4) % Baso % (Auto) (0-2) % Neut # (Auto) (8387-1198) /uL Lymph # (Auto) (5305-2597) /uL Cooper # (Auto) (0-900) /uL Eos # (Auto) (0-450) /uL Baso # (Auto) (0-100) /uL VBG pH (7.33-7.43) VBG pCO2 (45-50) mmHg VBG pO2 (35-45) mmHg VBG HCO3 (23-28) mmol/L VBG Total CO2 (24-29) mmol/L VBG O2 Saturation (70-75) % VBG Base Excess (0-4) mmol/L Sodium 147 H (137-145) mmol/L Potassium 4.6 (3.4-5.1) mmol/L Chloride 112 H (98-107) mmol/L Carbon Dioxide 20 L (22-32) mmol/L BUN 112 H* (9-20) mg/dL Creatinine 4.21 H (0.66-1.25) mg/dL Estimated GFR 13.9 L (>60) mL/min BUN/Creatinine Ratio 26.6 H (6-22) Glucose 250 H D (80-110) mg/dL Lactate (0.7-2.1) mmol/L Calcium 8.6 (8.4-10.2) mg/dL Magnesium (1.6-2.3) mg/dL Total Bilirubin 0.4 (0.2-1.3) mg/dL AST 18 (17-59) IU/L ALT 16 (<50) IU/L Alkaline Phosphatase 154 H (38-126) U/L Troponin I (0.01-0.034) ng/mL NT-Pro-B Natriuret Pep (<125) pg/mL Total Protein 7.7 (6.3-8.2) g/dL Albumin 3.3 L (3.5-5.0) g/dL Globulin 4.4 H (1.7-4.1) g/dL Albumin/Globulin Ratio 0.8 L (1.0-2.8) Lipase (23-300) U/L Procalcitonin (<0.5) ng/mL Urine Color Urine Appearance Urine pH (4.5-8.0) Ur Specific [place] (1.000-1.035) Urine Protein (Negative) Urine Glucose (UA) (Negative) g/dL Urine Ketones (NEGATIVE) Urine Occult Blood (Negative) Urine Nitrate (Negative) Urine Bilirubin (NEGATIVE) Urine Urobilinogen (0.2) E.U./dL Ur Leukocyte Esterase (NEGATIVE) Urine RBC (0-5/HPF) Urine WBC (0-5/HPF) Urine Bacteria (None) Urine Yeast (None) Ur Culture Indicated? SARS-CoV-2 (PCR) (Negative) Point of Care Testing Glucose POC 186 Point of care testing: Point of Care Testing Glucose POC 186 Discharge Plan Departure [facility] Clinical Impression: Bladder calculi, Acute pyelonephritis, Bilateral ureteral calculi, S/P ureteral stent placement, Acute hyperkalemia, Hypermagnesemia Sepsis Qualifiers: Sepsis type: sepsis due to unspecified organism Sepsis acute organ dysfunction status: with acute organ dysfunction Severe sepsis acute organ dysfunction type: acute renal failure Acute renal failure type: unspecified Severe sepsis shock status: without septic shock Qualified Code(s): A41.9 - Sepsis, unspecified organism Acute renal failure Qualifiers: Acute renal failure type: unspecified Qualified Code(s): N17.9 - Acute kidney failure, unspecified Prescriptions: No Action multivitamin,[id number] [Complete Multivitamin] tablet 1 tab PO DAILY 0RF (DME) Glucose: Test Strips 1 box See Rx Instructions .Route .MEDSUPPLY Qty: 100 3RF Rx Instructions: USE TO TEST BLOOD GLUCOSE BID alogliptin-metformin 12.5-500 mg tablet See Rx Instructions .ROUTE .COMPLEX Qty: 180 1RF Dose Instruction: take 1 tablet by mouth twice a day Rx Instructions: take 1 tablet by mouth twice a day aspirin 81 mg tablet,delayed release (DR/EC) 81 mg PO DAILY 0RF glipizide 10 mg tablet extended release 24hr 10 mg PO BID Qty: 180 3RF Rx Instructions: Increased to this dose gradually by starting with 10 mg at dinner the 1st week and then going to twice daily tamsulosin 0.4 mg capsule 0.4 mg PO BEDTIME Qty: 90 1RF Shingrix gE Antigen Component 50 mcg suspension for reconstitution 0.5 mcg IM ONCE Qty: 1 0RF amlodipine 5 mg tablet See Rx Instructions .ROUTE .COMPLEX Qty: 90 3RF Dose Instruction: take 1 tablet by mouth once daily Rx Instructions: take 1 tablet by mouth once daily Jardiance 25 mg tablet See Rx Instructions .ROUTE .COMPLEX Qty: 90 3RF Dose Instruction: take 1 tablet by mouth once daily Rx Instructions: take 1 tablet by mouth once daily pioglitazone 15 mg tablet See Rx Instructions .ROUTE .COMPLEX Qty: 90 3RF Dose Instruction: take 1 tablet by mouth once daily Rx Instructions: take 1 tablet by mouth once daily simvastatin 20 mg tablet 20 mg PO Q DAY Qty: 90 3RF phenazopyridine [Pyridium] 200 mg tablet 200 mg PO TID PRN (Reason: pain) Qty: 30 0RF oxybutynin chloride 5 mg tablet 5 mg PO BID-TID PRN (Reason: bladder spasms) Qty: 30 0RF Referrals: Trever Seo DO [Primary Care Provider] -
[2022-01-18 22:37] LABS: Bacteria Urine Occasional (0-1); RBC Urine 1-5/HPF (0-5/HPF); WBC Urine >100/HPF (0-5/HPF)
[2022-01-18 22:38] LABS: Culture Indicated Urine Specimen Cultured
[2022-01-19] VITALS (40 sets, daily range): BP systolic 102–140; BP diastolic 56–77; PULSE 87–106; RESP 12–32; TEMP 36–37.9; O2SAT 94–100
[2022-01-19] MEDS: LORazepam 2 MG/ML INJ 0.5 MG IV (01:55)
[2022-01-19] MEDS: INSULIN DRIP PREMIX 100 UNIT/100 ML PLAST..BAG 6 UNIT IV (03:13)
[2022-01-19] MEDS: PIPERACILLIN/TAZO 2.25 GM in SODIUM CHLORIDE 0.9% 100 ML 200 ML IV (04:01)
[2022-01-19 04:03] LABS: BUN Creatinine Ratio 28.3 (6-22); Calcium 8.7 mg/dL (8.4-10.2); Carbon Dioxide 16 mmol/L (22-32); Chloride 106 mmol/L (98-107); Estimated Glomerular Filt Rate 14.5 mL/min (>60); HEMOLYSIS < 15 (0-50); Sodium 140 mmol/L (137-145)
[2022-01-19 04:04] LABS: Potassium 5.5 mmol/L (3.4-5.1)
[2022-01-19 04:06] LABS: Blood Urea Nitrogen 115 mg/dL (9-20); Glucose 521 mg/dL (80-110)
--- NOTE | 2022-01-19 04:29 | PC.NURSE ---
BLG 461 insuline to remain at 6u/h
[2022-01-19] MEDS: SODIUM CHLORIDE 0.9% 1,000 ML 150 ML IV (04:35)
[2022-01-19] MEDS: risperiDONE 1 MG TABLET PO (04:48)
[2022-01-19 07:55] LABS: Hematocrit 40.8 % (41-53); Hemoglobin 13.6 g/dL (13.5-17.5); Mean Corpuscular HGB Conc 33.3 % (30-36); Mean Corpuscular Volume 87.2 fL (80-100); Platelet Count 418 X10^3/uL (150-400); Red Blood Cell Count 4.67 X10^6/uL (4.5-5.9); Red Cell Distribution Width 12.8 % (11.6-14.8); White Blood Cell Count 14.8 X10^3/uL (4.5-11.0)
[2022-01-19 08:08] LABS: Alanine Aminotransferase 16 IU/L (<50); Albumin 3.3 g/dL (3.5-5.0); Albumin Globulin Ratio 0.8 (1.0-2.8); Alkaline Phosphatase 154 U/L (38-126); Aspartate Aminotransferase 18 IU/L (17-59); BUN Creatinine Ratio 26.6 (6-22); Bilirubin Total 0.4 mg/dL (0.2-1.3); Calcium 8.6 mg/dL (8.4-10.2); Carbon Dioxide 20 mmol/L (22-32); Chloride 112 mmol/L (98-107); Estimated Glomerular Filt Rate 13.9 mL/min (>60); Globulin 4.4 g/dL (1.7-4.1); Glucose 250 mg/dL (80-110); HEMOLYSIS < 15 (0-50); Potassium 4.6 mmol/L (3.4-5.1); Sodium 147 mmol/L (137-145); Total Protein 7.7 g/dL (6.3-8.2)
[2022-01-19 08:10] LABS: Blood Urea Nitrogen 112 mg/dL (9-20)
--- NOTE | 2022-01-19 10:35 | PC.NURSE ---
pt arrived last night . received pt in bed, confused to time and place. states he is weak. pt is transferring out to . on Insulin gtt at 2 units/hour. pt is drowsy.
== END 2022-01-19 10:44 | disposition short-term general hospital (02) ==
PROVIDERS: Emergency Provider Emergency Medicine; PCP Family Medicine
DX: N21.0 Calculus in bladder (principal); N10 Acute pyelonephritis; N13.2 Hydronephrosis with renal and ureteral calculous obstruction; Z96.0 Presence of urogenital implants; E87.5 Hyperkalemia; E83.41 Hypermagnesemia; A41.9 Sepsis, unspecified organism; N17.9 Acute kidney failure, unspecified; Z20.822 Contact with and (suspected) exposure to COVID-19; I10 Essential (primary) hypertension; I45.10 Unspecified right bundle-branch block
CPT/HCPCS: 36415; 74176; 80048; 80053; 81001; 82805; 82962; 83605; 83690; 83735; 83880; 84145; 84484; 85025; 85027; 87040; 87077; 87086; 87635; 93005; 93010; 96361; 96365; 96366; 96367; 96375; 99284; 99285; C9803; J2060; J2543

== ENCOUNTER → 2023-04-10 11:22 | Outpatient (CLI) | payer MEDICARE, OTHER, SELFPAY ==
[2023-04-10 11:49] LABS: Add Manual Diff / Slide Review NO; Basophils Absolute Auto 100 /uL (0-100); Basophils Percent Auto 0.9 % (0-2); Eosinophils Absolute Auto 100 /uL (0-450); Eosinophils Percent Auto 2.4 % (2-4); Hematocrit 36.6 % (41-53); Hemoglobin 12.7 g/dL (13.5-17.5); Lymphocytes Absolute Auto 1300 /uL (1100-4500); Mean Corpuscular HGB Conc 34.8 % (30-36); Mean Corpuscular Hemoglobin 29.8 PG (26-34); Mean Corpuscular Volume 85.7 fL (80-100); Monocytes Absolute Auto 400 /uL (0-900); Monocytes Percent Auto 7.1 % (3-14); Neutrophils Absolute Auto 4100 /uL (1500-7000); Neutrophils Percent Auto 67.6 % (50-75); Platelet Count 273 X10^3/uL (150-400); Red Blood Cell Count 4.27 X10^6/uL (4.5-5.9); Red Cell Distribution Width 14.6 % (11.6-14.8)
[2023-04-10 12:16] LABS: Alanine Aminotransferase 36 IU/L (<50); Albumin 3.9 g/dL (3.5-5.0); Albumin Globulin Ratio 1.1 (1.0-2.8); Alkaline Phosphatase 129 U/L (38-126); Aspartate Aminotransferase 36 IU/L (17-59); BUN Creatinine Ratio 19.9 (6-22); Bilirubin Total 0.4 mg/dL (0.2-1.3); Blood Urea Nitrogen 27 mg/dL (9-20); Calcium 9.7 mg/dL (8.4-10.2); Carbon Dioxide 26 mmol/L (22-32); Chloride 105 mmol/L (98-107); Estimated Glomerular Filt Rate 54 mL/min (>60); Globulin 3.4 g/dL (1.7-4.1); Glucose 62 mg/dL (80-110); HEMOLYSIS < 15 (0-50); Potassium 4.4 mmol/L (3.4-5.1); Sodium 140 mmol/L (137-145); Total Protein 7.3 g/dL (6.3-8.2)
[2023-04-10 12:25] LABS: NT-proBNP (BNP-Adult 18+) 172 pg/mL (<450)
[2023-04-10 14:44] LABS: Microalbumin Urine Random 7.8 mg/dL (0-1.6)
[2023-04-10 15:01] LABS: Creatinine Urine Random 172.1 mg/dL; Microalbumi Creatinin Ratio Ur 45.3 ug/mg CR (<30)
[2023-04-11 05:29] LABS: Labcorp Hemoglobin (Hb) A1c 6.8 % (4.8-5.6)
== END ==
PROVIDERS: PCP Family Medicine; Referring Provider Family Medicine; Visit Provider Family Medicine
DX: I50.9 Heart failure, unspecified; E11.9 Type 2 diabetes mellitus without complications; I10 Essential (primary) hypertension; E78.2 Mixed hyperlipidemia
CPT/HCPCS: 36415; 80053; 82043; 82570; 83036; 83880; 85025

== ENCOUNTER → 2024-02-25 08:22 | Outpatient (CLI) | payer MEDICARE, OTHER, SELFPAY ==
[2024-02-25 09:39] LABS: Add Manual Diff / Slide Review NO; Basophils Absolute Auto 100 /uL (0-100); Basophils Percent Auto 0.9 % (0-2); Eosinophils Absolute Auto 100 /uL (0-450); Hematocrit 40.9 % (41-53); Hemoglobin 14.1 g/dL (13.5-17.5); Lymphocytes Absolute Auto 1400 /uL (1100-4500); Lymphocytes Percent Auto 22.9 % (25-40); Mean Corpuscular HGB Conc 34.5 % (30-36); Mean Corpuscular Hemoglobin 30.6 PG (26-34); Mean Corpuscular Volume 88.8 fL (80-100); Monocytes Absolute Auto 400 /uL (0-900); Monocytes Percent Auto 6.7 % (3-14); Neutrophils Absolute Auto 4100 /uL (1500-7000); Neutrophils Percent Auto 67.5 % (50-75); Platelet Count 227 X10^3/uL (150-400); Red Blood Cell Count 4.61 X10^6/uL (4.5-5.9); Red Cell Distribution Width 13.2 % (11.6-14.8); White Blood Cell Count 6.1 X10^3/uL (4.5-11.0)
[2024-02-25 09:58] LABS: Alanine Aminotransferase 17 IU/L (<50); Albumin 4.3 g/dL (3.5-5.0); Albumin Globulin Ratio 1.4 (1.0-2.8); Alkaline Phosphatase 100 U/L (38-126); Aspartate Aminotransferase 32 IU/L (17-59); BUN Creatinine Ratio 13.6 (6-22); Bilirubin Total 0.8 mg/dL (0.2-1.3); Blood Urea Nitrogen 17 mg/dL (9-20); Calcium 9.3 mg/dL (8.4-10.2); Carbon Dioxide 26 mmol/L (22-32); Chloride 106 mmol/L (98-107); Cholesterol 193 mg/dL (140-199); Estimated Glomerular Filt Rate > 60 mL/min (>60); Globulin 3.1 g/dL (1.7-4.1); Glucose 243 mg/dL (80-110); HDL Cholesterol 41 mg/dL (40-60); HEMOLYSIS < 15 (0-50); LDL Cholesterol Calculated 121 mg/dL (<100); Potassium 4.5 mmol/L (3.4-5.1); Sodium 139 mmol/L (137-145); Total Protein 7.4 g/dL (6.3-8.2); Triglycerides 157 mg/dL (35-150)
[2024-02-25 10:27] LABS: Prostate Specific Antigen 0.323 ng/mL (0.10-4.00)
[2024-02-25 10:41] LABS: TSH w/ Reflex to FT4 1.28 uIU/mL (0.47-4.68)
[2024-02-25 13:23] LABS: Hemoglobin A1C% w Est Avg Glu 9.3 % (4.0-6.0)
== END ==
PROVIDERS: PCP Family Medicine; Referring Provider Family Medicine; Visit Provider Family Medicine
DX: Z00.00 Encounter for general adult medical examination without abnormal findings (principal); E78.2 Mixed hyperlipidemia; E11.9 Type 2 diabetes mellitus without complications
CPT/HCPCS: 36415; 80053; 80061; 83036; 84153; 84443; 85025

== ENCOUNTER → 2024-06-30 12:12 | Outpatient (CLI) | payer MEDICARE, OTHER, SELFPAY ==
[2024-06-30 13:13] LABS: Hemoglobin A1C% w Est Avg Glu 13.1 % (4.0-6.0)
[2024-06-30 13:33] LABS: Alanine Aminotransferase 12 IU/L (<50); Albumin Globulin Ratio 1.1 (1.0-2.8); Alkaline Phosphatase 184 U/L (38-126); Aspartate Aminotransferase 22 IU/L (17-59); BUN Creatinine Ratio 14.3 (6-22); Bilirubin Total 0.8 mg/dL (0.2-1.3); Blood Urea Nitrogen 18 mg/dL (9-20); Calcium 9.7 mg/dL (8.4-10.2); Carbon Dioxide 25 mmol/L (22-32); Chloride 96 mmol/L (98-107); Estimated Glomerular Filt Rate 59 mL/min (>60); Globulin 3.6 g/dL (1.7-4.1); Glucose 346 mg/dL (80-110); HEMOLYSIS < 15 (0-50); Potassium 4.8 mmol/L (3.4-5.1); Sodium 131 mmol/L (137-145); Total Protein 7.6 g/dL (6.3-8.2)
== END ==
LOC: LAB 12:13
PROVIDERS: PCP Family Medicine; Referring Provider Family Medicine; Visit Provider Family Medicine
DX: E11.9 Type 2 diabetes mellitus without complications (principal); E78.5 Hyperlipidemia, unspecified
CPT/HCPCS: 36415; 80053; 83036

== ENCOUNTER 2024-07-03 09:24 | Inpatient (IN) | payer MEDICARE, OTHER, SELFPAY ==
[2024-07-03] VITALS (16 sets, daily range): BP systolic 111–143; BP diastolic 57–75; PULSE 73–84; RESP 12–20; TEMP 36.3–36.9; O2SAT 91–100; BMI 26.4
--- NOTE | 2024-07-03 09:31 | DI.RAD.S_ITS ---
PROCEDURE: XR CHEST 1V INDICATIONS: chest pain TECHNIQUE: One view of the chest was acquired. COMPARISON: None. FINDINGS: Surgical changes and devices: None. Lungs and pleura: On this semiupright portable chest examination, no large pneumothorax or large pleural effusions are seen. No focal infiltrates are seen. Low lung volumes are noted. This causes a crowded appearance to the lung markings and limits evaluation. Mediastinum: Mediastinal contours appear normal. Heart size is normal. Bones and chest wall: No suspicious bony lesions. Age-appropriate bony degenerative changes are seen. Overlying soft tissues appear unremarkable. IMPRESSION: Limited portable chest examination, without a significant cardiopulmonary abnormality identified. Dictated by: Will Maldonado M.D. on 07/03/2024 at 8:58 Approved by: Will Maldonado M.D. on 07/03/2024 at 8:58
--- NOTE | 2024-07-03 09:34 | EKG_ITS ---
[place] [id number] [place] [id number] Test Date: 2024-07-03 Pat Name: Billy Herr Department: [facility] Room: Gender: Male [employer]: SHANEKA : 1950 Requested By: Order Number: [id number] Reading MD: Micky Castellon Measurements Intervals [place] Rate: 90 P: 39 CO: 248 QRS: 264 QRSD: 134 T: -7 QT: 408 QTc: 499 Interpretive Statements Sinus rhythm with 1st degree AV block Right bundle branch block Electronically Signed On 07-04-2024 15:25:44 PDT by Micky Castellon
[2024-07-03 09:40] LABS: Add Manual Diff / Slide Review NO; Basophils Absolute Auto 100 /uL (0-100); Basophils Percent Auto 0.6 % (0-2); Eosinophils Absolute Auto 0 /uL (0-450); Eosinophils Percent Auto 0.2 % (2-4); Hematocrit 40.9 % (41-53); Hemoglobin 14.2 g/dL (13.5-17.5); Lymphocytes Absolute Auto 800 /uL (1100-4500); Lymphocytes Percent Auto 9.8 % (25-40); Mean Corpuscular HGB Conc 34.6 % (30-36); Mean Corpuscular Hemoglobin 30.4 PG (26-34); Mean Corpuscular Volume 87.7 fL (80-100); Monocytes Absolute Auto 800 /uL (0-900); Monocytes Percent Auto 8.9 % (3-14); Neutrophils Absolute Auto 6800 /uL (1500-7000); Neutrophils Percent Auto 80.5 % (50-75); Platelet Count 404 X10^3/uL (150-400); Red Blood Cell Count 4.67 X10^6/uL (4.5-5.9); Red Cell Distribution Width 13.6 % (11.6-14.8); White Blood Cell Count 8.5 X10^3/uL (4.5-11.0)
[2024-07-03 09:41] LABS: INR 1.2 (0.9-1.3); Prothrombin Time 13.3 SECONDS (9.4-12.5)
--- NOTE | 2024-07-03 09:41 | ED.GENADULT ---
HPI - General Adult General Chief complaint: Syncope Stated complaint: syncope Time Seen by Provider: 07/03/24 09:40 History of Present Illness HPI narrative: 74-year-old gentleman with a history of type 2 diabetes, cognitive decline, hypertension, hyperlipidemia, BPH, was living at the [facility] in [place], which is an assisted living facility, comes in today by medics with reports that he has been on the ground beside his bed for approximately 48 hours. He was quite confused over the entire course of events. He does not remember falling, does not believe he is taken any of his medications, he states that he awoke this morning and was surprised to find himself on the floor managed to call his daughter who called 911. Unclear why he waited 48 hours to call his daughter. Patient complains that he is globally weak does not have any localizing findings. No fevers, no headaches, no other complaints pain Related Data Home Medications Medication Instructions Recorded Confirmed acetaminophen 650 mg 650 mg PO Q4H PRN pain 01/30/23 07/03/24 tablet,extended release magnesium hydroxide 400 mg/5 mL 2,400 mg PO DAILY PRN Sleep 01/30/23 07/03/24 oral suspension ondansetron 4 mg disintegrating 4 mg PO Q8H 01/30/23 07/03/24 tablet phenazopyridine 200 mg tablet 200 mg PO TID 01/30/23 07/03/24 polyethylene glycol 3350 17 17 g PO DAILY PRN Constipation 01/30/23 07/03/24 gram/dose oral powder (Miralax) docusate sodium 100 mg capsule See Rx Instructions .Route 07/03/24 07/03/24 (Stool Softener) .COMPLEX PRN Constipation Previous Rx's Medication Instructions Recorded blood glucose monitor #1 ea 04/10/23 folic acid 1 mg tablet See Rx Instructions .Route 04/17/23 .COMPLEX #30 ea fructoligosacharides-polydextrose 1 ea PO BID #3,784 mL 05/29/23 6 gram/15 mL oral liquid (HyFiber with FOS) ascorbic acid (vitamin C) 500 mg See Rx Instructions .Route 02/25/24 tablet (Vitamin C) .COMPLEX #60 ea blood glucose test strips #1 ea 02/25/24 finasteride 5 mg tablet See Rx Instructions .Route 02/25/24 .COMPLEX #30 ea insulin glargine 100 unit/mL (3 30 unit (0.3 mL) SUBCUT DAILY #15 02/25/24 mL) subcutaneous pen (Basaglar mL KwikPen U-100 Insulin) metformin 500 mg tablet See Rx Instructions .Route 02/25/24 .COMPLEX #60 ea pen needle, diabetic, safety 30 #100 ea 02/25/24 gauge x 1/3 sennosides 8.6 mg tablet (senna) See Rx Instructions .Route 02/25/24 .COMPLEX #60 ea simvastatin 20 mg tablet See Rx Instructions .Route 02/25/24 .COMPLEX #30 ea tamsulosin 0.4 mg capsule See Rx Instructions .Route 02/25/24 .COMPLEX #30 ea thiamine HCl (vitamin B1) 100 mg See Rx Instructions .Route 02/25/24 tablet (Vitamin B-1) .COMPLEX #30 ea lancets 32 gauge #100 ea 03/24/24 Allergies Allergy/AdvReac Type Severity Reaction Status Date / Time No Known Drug Allergies Allergy Verified 06/30/24 11:39 Review of Systems Review of Systems Narrative: Pertinent positive and negative findings as per HPI Patient History Medical History Cognitive decline History of acute renal failure Orthostatic hypotension Ureteral stone Bladder calculus Hydronephrosis concurrent with and due to calculi of kidney and ureter BPH (benign prostatic hyperplasia) Well adult exam Near-sightedness Psoriasis Measles Cellulitis of toe Actinic keratosis Basal cell carcinoma Eczema Diabetes Hyperlipidemia Hypertension Surgical History Anesthesia Status post amputation of extremity (~05/2013) Family History Mother Hypertension History of heart disease Father Parkinson's disease History of heart disease Social History household members: children Smoking Status: Never smoker alcohol intake: current substance use type: does not use Smoking Status: Never smoker Substance Use Type: does not use Exam Initial Vital Signs Initial Vital Signs: Vital Signs Temperature 98.4 F 07/03/24 09:32 Pulse Rate 84 07/03/24 09:32 Respiratory Rate 20 07/03/24 09:32 Blood Pressure 118/63 07/03/24 09:32 Pulse Oximetry 100 07/03/24 09:32 Oxygen Delivery Method Room Air 07/03/24 09:32 General: Disheveled, chronically ill-appearing, able to speak in full sentences but he is clearly confused with events and timing of events HEENT: Dry mucous membranes, normal sclera with reactive pupils, Neck: No JVD, supple Respiratory: Lungs are clear to auscultation, no wheezing no rales no rhonchi. Full and symmetrical air movement Cardiac: Regular rate and rhythm no murmurs no bruits Abdomen: Soft, nontender, good bowel tones, no flank pain Skin: Pale, bruises in various stages of healing, skin is quite thin. Does have a small skin tear on the left forearm. He has developing a pressure ulcer over the sacrum without infection appreciated at this time Neurologic: Globally weak but is moving all extremities. Extremities: Minor abrasions to both knees. 1+ bilateral lower extremity edema. No other trauma appreciated Psych: Cooperative, not oriented to time, events or details Course Orders Ordered: ED Orders 07/03/24 10:03 CT head/brain wo con Stat 07/03/24 11:25 Urinalysis and Microscopic Stat Urine Culture Stat 07/03/24 11:37 Respiratory Panel (Film Array) Stat Acetaminophen (Acetaminophen 325 Mg Tablet) 650 mg PO Q6H PRN PRN Reason: Fever/Mild Pain (1-3) Atorvastatin Calcium (Atorvastatin 20 Mg Tablet) 10 mg PO BEDTIME [facility] Enoxaparin Sodium (Enoxaparin 40 Mg/0.4 Ml Syringe) 40 mg SUBCUT DAILY [facility] Last Admin: 07/03/24 14:56 Dose: 40 mg Documented By: MARIANNA Finasteride (Finasteride 5 Mg Tablet) 5 mg PO DAILY [facility] Ceftriaxone Sodium 1,000 mg/ (Sodium Chloride) 100 mls @ 200 mls/hr IV Q24H [facility] Last Admin: 07/03/24 14:54 Dose: 200 mls/hr Documented By: MARIANNA Insulin Glargine (Insulin Glargine 100 Unit/Ml 3ml Pen) 30 unit SUBCUT DAILY [facility] Last Admin: 07/03/24 14:55 Dose: 30 unit Documented By: MARIANNA Co-signed By: ANA Insulin Human Lispro (Insulin Lispro 100 Unit/Ml 3ml Vial) 0 unit SUBCUT ACHS [facility]; Protocol Last Admin: 07/03/24 17:00 Dose: 8 unit Documented By: MARIANNA Co-signed By: ANA Metformin HCl (Metformin Hcl 500 Mg Tablet) 500 mg PO BID ANTHONY Naloxone HCl (Naloxone 0.4 Mg/Ml Vial) 0.2 mg IV Q2MIN PRN PRN Reason: Opiate Reversal Tamsulosin HCl (Tamsulosin 0.4 Mg Capsule) 0.4 mg PO BEDTIME ANTHONY Discontinued Medications Sodium Chloride (Normal Saline 0.9%) 1,000 mls @ 1,000 mls/hr IV BOLUS ONE Stop: 07/03/24 11:02 Last Infusion: 07/03/24 11:16 Dose: Infused Documented By: Admin: 07/03/24 10:09 Dose: 1,000 mls/hr Documented By: RASHEED Sodium Chloride (Normal Saline 0.9%) 1,000 mls @ 1,000 mls/hr IV BOLUS ONE Stop: 07/03/24 13:24 Last Infusion: 07/03/24 13:46 Dose: Infused Documented By: Admin: 07/03/24 12:49 Dose: 1,000 mls/hr Documented By: DULCE Vital Signs Vital signs: Vital Signs - 8 hr 07/03/24 11:00 07/03/24 11:00 07/03/24 11:30 Pulse Rate 75 79 Respiratory Rate 14 Blood Pressure 125/59 L Pulse Oximetry 99 99 07/03/24 12:00 07/03/24 12:30 Pulse Rate 74 74 Respiratory Rate Blood Pressure Pulse Oximetry 91 96 Medical Decision Making Lab Data 07/03/24 09:20 07/03/24 09:20 Labs: Lab Results 07/03/24 07/03/24 07/03/24 Range/Units 09:20 09:32 11:25 WBC 8.5 (4.5-11.0) X10^3/uL RBC 4.67 (4.5-5.9) X10^6/uL Hgb 14.2 (13.5-17.5) g/dL Hct 40.9 L (41-53) % MCV 87.7 (80-100) fL MCH 30.4 (26-34) PG MCHC 34.6 (30-36) % RDW 13.6 (11.6-14.8) % Plt Count 404 H (150-400) X10^3/uL Neut % (Auto) 80.5 H (50-75) % Lymph % (Auto) 9.8 L (25-40) % [place] % (Auto) 8.9 (3-14) % Eos % (Auto) 0.2 L (2-4) % Baso % (Auto) 0.6 (0-2) % Neut # (Auto) 6800 (0575-7702) /uL Lymph # (Auto) 800 L (7604-7424) /uL [place] # (Auto) 800 (0-900) /uL Eos # (Auto) 0 (0-450) /uL Baso # (Auto) 100 (0-100) /uL PT 13.3 H (9.4-12.5) SECONDS INR 1.2 (0.9-1.3) APTT 34 (25.1-36.5) SECONDS Sodium 130 L (137-145) mmol/L Potassium 5.2 H (3.4-5.1) mmol/L Chloride 95 L (98-107) mmol/L Carbon Dioxide 23 (22-32) mmol/L BUN 22 H (9-20) mg/dL Creatinine 1.27 H (0.66-1.25) mg/dL Estimated GFR 59 L (>60) mL/min BUN/Creatinine Ratio 17.3 (6-22) Glucose 448 H D (80-110) mg/dL Calcium 9.9 (8.4-10.2) mg/dL Magnesium 2.0 (1.6-2.3) mg/dL Total Bilirubin 1.1 (0.2-1.3) mg/dL AST 23 (17-59) IU/L ALT 19 (<50) IU/L Alkaline Phosphatase 199 H (38-126) U/L Total Creatine Kinase 89 (55-170) U/L Troponin I < 0.012 (0.01-0.034) ng/mL NT-Pro-B Natriuret Pep 716 H (<450) pg/mL Total Protein 7.9 (6.3-8.2) g/dL Albumin 4.2 (3.5-5.0) g/dL Globulin 3.7 (1.7-4.1) g/dL Albumin/Globulin Ratio 1.1 (1.0-2.8) Lipase 66 (23-300) U/L Procalcitonin 0.137 (<0.5) ng/mL Urine Color Yellow Urine Appearance Turbid Urine pH 6.0 (4.5-8.0) Ur Specific [place] 1.015 (1.000-1.035) Urine Protein 2+ H (Negative) Urine Glucose (UA) 3+ H (Negative) g/dL Urine Ketones Negative (NEGATIVE) Urine Occult Blood 2+ H (Negative) Urine Nitrate Negative (Negative) Urine Bilirubin Negative (NEGATIVE) Urine Urobilinogen 0.2 (0.2) E.U./dL Ur Leukocyte Esterase 3+ H (NEGATIVE) Urine RBC 1-5/hpf (0-5/HPF) Urine WBC >100/hpf H (0-5/HPF) Ur Squamous Epith Cells None seen (0-5/HPF) Urine Bacteria None seen (None) Urine Yeast 5-10/hpf H (None) Ur Culture Indicated? Specimen cultured Vol Urine Centrifuged 10ml (spun) Chlamy pneumoniae PCR (Not Detect) Adenovirus (PCR) (Not Detect) B.parapertussis DNA PCR (Not Detecte) Coronavirus OC43 (PCR) (Not Detect) Coronavirus HKU1 (PCR) (Not Detect) Coronavirus 229E (PCR) (Not Detect) SARS-CoV-2 (PCR) (Not Detecte) Coronavirus NL63 (PCR) (Not Detect) Human Metapneumovir PCR (Not Detect) Influenza Type A (PCR) (Not Detect) Influenza Type B (PCR) (Not Detect) M. pneumoniae (PCR) (Not Detect) Parainfluenza 1 (PCR) (Not Detect) Parainfluenza 2 (PCR) (Not Detect) Parainfluenza 3 (PCR) (Not Detect) Parainfluenza 4 (PCR) (Not Detect) RSV (PCR) (Not Detect) Entero/Rhino (PCR) (Not Detect) 07/03/24 Range/Units 11:37 WBC (4.5-11.0) X10^3/uL RBC (4.5-5.9) X10^6/uL Hgb (13.5-17.5) g/dL Hct (41-53) % MCV (80-100) fL MCH (26-34) PG MCHC (30-36) % RDW (11.6-14.8) % Plt Count (150-400) X10^3/uL Neut % (Auto) (50-75) % Lymph % (Auto) (25-40) % [place] % (Auto) (3-14) % Eos % (Auto) (2-4) % Baso % (Auto) (0-2) % Neut # (Auto) (2531-0951) /uL Lymph # (Auto) (8744-2516) /uL [place] # (Auto) (0-900) /uL Eos # (Auto) (0-450) /uL Baso # (Auto) (0-100) /uL PT (9.4-12.5) SECONDS INR (0.9-1.3) APTT (25.1-36.5) SECONDS Sodium (137-145) mmol/L Potassium (3.4-5.1) mmol/L Chloride (98-107) mmol/L Carbon Dioxide (22-32) mmol/L BUN (9-20) mg/dL Creatinine (0.66-1.25) mg/dL Estimated GFR (>60) mL/min BUN/Creatinine Ratio (6-22) Glucose (80-110) mg/dL Calcium (8.4-10.2) mg/dL Magnesium (1.6-2.3) mg/dL Total Bilirubin (0.2-1.3) mg/dL AST (17-59) IU/L ALT (<50) IU/L Alkaline Phosphatase (38-126) U/L Total Creatine Kinase (55-170) U/L Troponin I (0.01-0.034) ng/mL NT-Pro-B Natriuret Pep (<450) pg/mL Total Protein (6.3-8.2) g/dL Albumin (3.5-5.0) g/dL Globulin (1.7-4.1) g/dL Albumin/Globulin Ratio (1.0-2.8) Lipase (23-300) U/L Procalcitonin (<0.5) ng/mL Urine Color Urine Appearance Urine pH (4.5-8.0) Ur Specific [place] (1.000-1.035) Urine Protein (Negative) Urine Glucose (UA) (Negative) g/dL Urine Ketones (NEGATIVE) Urine Occult Blood (Negative) Urine Nitrate (Negative) Urine Bilirubin (NEGATIVE) Urine Urobilinogen (0.2) E.U./dL Ur Leukocyte Esterase (NEGATIVE) Urine RBC (0-5/HPF) Urine WBC (0-5/HPF) Ur Squamous Epith Cells (0-5/HPF) Urine Bacteria (None) Urine Yeast (None) Ur Culture Indicated? Vol Urine Centrifuged Chlamy pneumoniae PCR Not detected (Not Detect) Adenovirus (PCR) Not detected (Not Detect) B.parapertussis DNA PCR Not detected (Not Detecte) Coronavirus OC43 (PCR) Not detected (Not Detect) Coronavirus HKU1 (PCR) Not detected (Not Detect) Coronavirus 229E (PCR) Not detected (Not Detect) SARS-CoV-2 (PCR) Not detected (Not Detecte) Coronavirus NL63 (PCR) Not detected (Not Detect) Human Metapneumovir PCR Not detected (Not Detect) Influenza Type A (PCR) Not detected (Not Detect) Influenza Type B (PCR) Not detected (Not Detect) M. pneumoniae (PCR) Not detected (Not Detect) Parainfluenza 1 (PCR) Not detected (Not Detect) Parainfluenza 2 (PCR) Not detected (Not Detect) Parainfluenza 3 (PCR) Not detected (Not Detect) Parainfluenza 4 (PCR) Not detected (Not Detect) RSV (PCR) Not detected (Not Detect) Entero/Rhino (PCR) Not detected (Not Detect) Point of Care Testing Glucose POC 401 Urine Dip Bedside Urine Glucose 1000 mg/dl Bedside Urine Bilirubin - Negative Bedside Urine Ketone - Negative Urine Specific [place] 1.015 Bedside Urine Occult Blood +++ Bedside Urine pH 6.0 Bedside Urine Protein ++ 100 Bedside Urine Urobilinogen - Negative Bedside Urine Nitrite - Negative Bedside Urine Leukocytes +++ 500 Esterase Point of care testing: Point of Care Testing Glucose POC 401 Urine Dip Bedside Urine Glucose 1000 mg/dl Bedside Urine Bilirubin - Negative Bedside Urine Ketone - Negative Urine Specific [place] 1.015 Bedside Urine Occult Blood +++ Bedside Urine pH 6.0 Bedside Urine Protein ++ 100 Bedside Urine Urobilinogen - Negative Bedside Urine Nitrite - Negative Bedside Urine Leukocytes +++ 500 Esterase MDM Narrative Medical decision making narrative: CC: Reportedly on the floor in his bedroom for 48 hours to weak to get up Complicating co-morbidities: Cognitive decline, diabetes, hypertension, hyperlipidemia Data collected from: patient Social determinants of health that may influence the patients condition: Moved home from assisted living facility about a month ago Medical records reviewed: Primary care notes with most recent visit on June 30 are reviewed Differential considered: Infection, stroke, severe anemia, renal failure, rhabdomyolysis, acute cardiac event Exam documented above, pertinent findings include: Patient is dishevelled but appears only mildly dehydrated. Developing a pressure ulcer over his sacrum but no sores over his hips or back from reportedly lying in the floor for 2 days. Skin tear to the left forearm heart lungs and abdomen are otherwise benign Lab Test results independently reviewed as above. Pertinent findings: CBC is unremarkable Chemistries are notable for chronic renal insufficiency creatinine stable at 1.2. Potassium slightly elevated at 5.2. Sugar significantly elevated at 448, sodium appropriate when corrected for sugar. Alk-phos chronically elevated, stable BNP is unremarkable Troponin is nondetectable Total CK is appropriate Lipase is appropriate Urinalysis shows leukocyte esterase, white cells, yeast no bacteria noted is described as significantly cloudy Respiratory panel is benign Independently reviewed EKG: Sinus rhythm, first-degree block. Right bundle branch block, no acute ischemic changes Imaging studies independently reviewed: Chest x-ray shows no significant abnormalities including fractures, pneumothorax or infection. No evidence of cardiomegaly or congestive heart failure CT scan of the head is unremarkable Treatments: Fluids Re-evaluations: Patient is spontaneously voided 300 cc of cloudy looking urine. Discussion: 74-year-old gentleman with a history of type 2 diabetes cognitive decline reportedly spent 2 days on the floor because he was unable to get up. Unclear etiology for why he was quite so weak. I am not seeing signs of sepsis, congestive heart failure, kidney failure, electrolyte abnormalities, acute coronary syndrome, stroke, rhabdomyolysis. He does have a developing sacral decubitus ulcer that is not currently infected. No other skin breakdown from being on the floor for 2 days. This point he is so weak he is barely able to roll over in bed. Respiratory panel does not show obvious viral etiology. He is going to need hospital admission because of the weakness. He does have hyperglycemia however I suspect his blood sugar is typically on the higher side, hemoglobin A1c was 13.1 on June 30. Potassium is mildly elevated but renal function is stable anticipate that it will come down with hydration. Discharge Plan Departure Patient Disposition: Admitted as Observation Clinical Impression: Weakness, Acute hyperkalemia Admit Date/Time: 07/03/24 12:47 Admit Provider: Luis Felipe Boothe V
[2024-07-03 09:44] LABS: PTT Partial Thromboplastin Tim 34 SECONDS (25.1-36.5)
[2024-07-03 09:45] LABS: Alanine Aminotransferase 19 IU/L (<50); Albumin 4.2 g/dL (3.5-5.0); Albumin Globulin Ratio 1.1 (1.0-2.8); Alkaline Phosphatase 199 U/L (38-126); Aspartate Aminotransferase 23 IU/L (17-59); BUN Creatinine Ratio 17.3 (6-22); Bilirubin Total 1.1 mg/dL (0.2-1.3); Blood Urea Nitrogen 22 mg/dL (9-20); Calcium 9.9 mg/dL (8.4-10.2); Carbon Dioxide 23 mmol/L (22-32); Chloride 95 mmol/L (98-107); Creatine Kinase 89 U/L (55-170); Estimated Glomerular Filt Rate 59 mL/min (>60); Globulin 3.7 g/dL (1.7-4.1); Glucose 448 mg/dL (80-110); HEMOLYSIS 18 (0-50); Lipase 66 U/L (23-300); Potassium 5.2 mmol/L (3.4-5.1); Sodium 130 mmol/L (137-145); Total Protein 7.9 g/dL (6.3-8.2)
[2024-07-03 09:57] LABS: NT-proBNP (BNP-Adult 18+) 716 pg/mL (<450); Troponin I < 0.012 ng/mL (0.01-0.034)
--- NOTE | 2024-07-03 10:03 | DI.CT.S_ITS ---
PROCEDURE: CT HEAD/BRAIN WO CON INDICATIONS: fall, weakness TECHNIQUE: Noncontrast 4.5 mm thick angled axial sections acquired from the foramen magnum to the vertex, with coronal and sagittal reformats. For radiation dose reduction, the following was used: automated exposure control, adjustment of mA and/or kV according to patient size. COMPARISON: [facility], CR, XR CHEST 1V, 07/03/2024, 9:29. FINDINGS: Image quality: Diagnostic. CSF spaces: Basal cisterns are patent. No extra-axial fluid collections. The ventricles are symmetric in size and shape. Brain: No intracranial bleeds or masses. There is cerebral volume loss for age, with resultant ventricular and sulcal prominence. There are periventricular and deep white matter chronic small vessel ischemic changes. There is intracranial internal carotid artery atherosclerosis. Skull and face: Calvarium and visualized facial bones appear intact, without suspicious lesions. Sinuses: Visualized sinuses and mastoids are clear. IMPRESSION: No acute intracranial hemorrhage is seen. No acute intracranial pathology. Dictated by: Will Maldonado M.D. on 07/03/2024 at 9:48 Approved by: Will Maldonado M.D. on 07/03/2024 at 9:48
[2024-07-03] MEDS: SODIUM CHLORIDE 0.9% 1,000 ML 1000 ML IV ×2 (10:09→12:49)
[2024-07-03 11:48] LABS: Appearance Urine UA TURBID; Bilirubin Urine UA NEGATIVE (NEGATIVE); Color Urine UA YELLOW; Glucose Urine UA 3+ g/dL (Negative); Ketones Urine UA NEGATIVE (NEGATIVE); Leukocyte Esterase Urine UA 3+ (NEGATIVE); Nitrite Urine UA NEGATIVE (Negative); Occult Blood Urine UA 2+ (Negative); Protein Urine UA 2+ (Negative); Specific Gravity Urine UA 1.015 (1.000-1.035); Urobilinogen Urine UA 0.2 E.U./dL (0.2)
[2024-07-03 12:01] LABS: Bacteria Urine None Seen; RBC Urine 1-5/HPF (0-5/HPF); Squamous Epithelial Cell Urine None Seen (0-5/HPF); Urine Volume 10mL (spun); WBC Urine >100/HPF (0-5/HPF)
[2024-07-03 12:02] LABS: Culture Indicated Urine Specimen Cultured
[2024-07-03 12:32] LABS: Adenovirus Not Detected (Not Detect); B. parapertussis Not Detected (Not Detecte); Bordetella pertussis Not Detected (Not Detect); Chlamydophila pneumoniae Not Detected (Not Detect); Coronavirus 229E Not Detected (Not Detect); Coronavirus HKU1 Not Detected (Not Detect); Coronavirus NL 63 Not Detected (Not Detect); Coronavirus OC43 Not Detected (Not Detect); Human Metapneumovirus Not Detected (Not Detect); Human Rhinovirus/Enterovirus Not Detected (Not Detect); Influenza A Not Detected (Not Detect); Influenza B Not Detected (Not Detect); Mycoplasma pneumoniae Not Detected (Not Detect); Parainfluenza Virus 1 Not Detected (Not Detect); Parainfluenza Virus 2 Not Detected (Not Detect); Parainfluenza Virus 3 Not Detected (Not Detect); Parainfluenza Virus 4 Not Detected (Not Detect); Respiratory Syncytial Virus Not Detected (Not Detect); SARS- CoV-2 Not Detected (Not Detecte)
[2024-07-03 13:15] LABS: Procalcitonin 0.137 ng/mL (<0.5)
--- NOTE | 2024-07-03 13:49 | PC.NURSE ---
pt reports at some point passing out on thursday; but states on thursday he took his insulin. pt states he called his daughter after he had been lying on the ground for 48 hours? Pt memory seems to be comrpomised. abrasion to right knee. start of pressure injury on sacrum (stage 1?), skin tear to left arm. pt urine cloudy
--- NOTE | 2024-07-03 14:00 | PM.HP.1 ---
History of Present Illness History of Present Illness Date Patient Seen: 07/03/24 Time Patient Seen: 13:00 Date of Onset of Symptoms: 07/03/24 Chief complaint: syncope Narrative: 74-year-old man under the primary care of Dr. Darion Seo was found down today by his daughter, after not answering his phone. She last spoke to him on 07/01 in the late evening, which time he stated he was feeling fine. He has moderate cognitive impairment and make several statements during our interview that his daughter states are inaccurate. He feels that he somehow had a soft landing on the ground as he had no injury, other than a small left forearm abrasion. However, he is not exactly sure how he did end up on the ground, though knows that he was too weak to get up by himself. He was brought to the emergency department for further evaluation and not found have a clear-cut reason for his weakness, though does have an abnormal urinalysis and severe hyperglycemia in the setting of chronic poorly controlled diabetes, with his most recent hemoglobin A1c 13.1% on 06/30/2024, previously 9.3% on 02/25/2024. He had been living at an assisted living facility in [facility] until about 4 months ago before returning home to live independently. He is seen with his daughter lives and son-in-law (who is a social services director in [place]) were hoping that he can return to an assisted living situation given their concerns over his ability to care for himself. [facility] Medical History Cognitive decline History of acute renal failure Orthostatic hypotension Ureteral stone Bladder calculus Hydronephrosis concurrent with and due to calculi of kidney and ureter BPH (benign prostatic hyperplasia) Well adult exam Near-sightedness Psoriasis Measles Cellulitis of toe Actinic keratosis Basal cell carcinoma Eczema Diabetes Hyperlipidemia Hypertension Surgical History Anesthesia Status post amputation of extremity (~05/2013) Family History Mother Hypertension History of heart disease Father Parkinson's disease History of heart disease Social History household members: children Smoking Status: Never smoker alcohol intake: current substance use type: does not use Meds Home Medications and Allergies Home Medications Medication Instructions Recorded Confirmed Type acetaminophen 650 mg 650 mg PO Q4H 01/30/23 06/30/24 History tablet,extended release magnesium hydroxide 400 mg/5 mL 2,400 mg PO DAILY PRN 01/30/23 06/30/24 History oral suspension ondansetron 4 mg disintegrating 4 mg PO Q8H 01/30/23 06/30/24 History tablet phenazopyridine 200 mg tablet 200 mg PO TID 01/30/23 06/30/24 History polyethylene glycol 3350 17 17 g PO DAILY PRN 01/30/23 06/30/24 History gram/dose oral powder (Miralax) blood glucose monitor #1 ea 04/10/23 06/30/24 Rx docusate sodium 100 mg capsule See Rx Instructions .Route 04/17/23 06/30/24 Rx (Stool Softener) .COMPLEX #30 ea folic acid 1 mg tablet See Rx Instructions .Route 04/17/23 06/30/24 Rx .COMPLEX #30 ea fructoligosacharides-polydextrose 1 ea PO BID #3,784 mL 05/29/23 06/30/24 Rx 6 gram/15 mL oral liquid (HyFiber with FOS) ascorbic acid (vitamin C) 500 mg See Rx Instructions .Route 02/25/24 06/30/24 Rx tablet (Vitamin C) .COMPLEX #60 ea blood glucose test strips #1 ea 02/25/24 06/30/24 Rx finasteride 5 mg tablet See Rx Instructions .Route 02/25/24 06/30/24 Rx .COMPLEX #30 ea insulin glargine 100 unit/mL (3 30 unit (0.3 mL) SUBCUT DAILY #15 02/25/24 06/30/24 Rx mL) subcutaneous pen (Basaglar mL KwikPen U-100 Insulin) metformin 500 mg tablet See Rx Instructions .Route 02/25/24 06/30/24 Rx .COMPLEX #60 ea pen needle, diabetic, safety 30 #100 ea 02/25/24 06/30/24 Rx gauge x 1/3 sennosides 8.6 mg tablet (senna) See Rx Instructions .Route 02/25/24 06/30/24 Rx .COMPLEX #60 ea simvastatin 20 mg tablet See Rx Instructions .Route 02/25/24 06/30/24 Rx .COMPLEX #30 ea tamsulosin 0.4 mg capsule See Rx Instructions .Route 02/25/24 06/30/24 Rx .COMPLEX #30 ea thiamine HCl (vitamin B1) 100 mg See Rx Instructions .Route 02/25/24 06/30/24 Rx tablet (Vitamin B-1) .COMPLEX #30 ea lancets 32 gauge #100 ea 03/24/24 06/30/24 Rx Allergies Allergy/AdvReac Type Severity Reaction Status Date / Time No Known Drug Allergies Allergy Verified 06/30/24 11:39 Review of Systems Review of Systems ROS: Yes All systems reviewed with the patient and are negative except as otherwise documented Exam Vital Signs (past 8 hours): - 07/03/24 09:32 07/03/24 09:40 07/03/24 10:00 Temperature 98.4 F Pulse Rate 84 84 83 Respiratory Rate 20 Blood Pressure 118/63 Pulse Oximetry 100 98 96 Oxygen Delivery Method Room Air 07/03/24 10:06 07/03/24 10:06 07/03/24 10:27 Temperature Pulse Rate 82 Respiratory Rate 16 Blood Pressure 111/64 125/59 L Pulse Oximetry 99 Oxygen Delivery Method 07/03/24 10:27 07/03/24 10:30 07/03/24 10:30 Temperature Pulse Rate 80 78 Respiratory Rate 16 Blood Pressure 117/57 L Pulse Oximetry 100 99 Oxygen Delivery Method 07/03/24 11:00 07/03/24 11:00 07/03/24 11:30 Temperature Pulse Rate 75 79 Respiratory Rate 14 Blood Pressure 125/59 L Pulse Oximetry 99 99 Oxygen Delivery Method 07/03/24 12:00 07/03/24 12:30 07/03/24 13:00 Temperature Pulse Rate 74 74 73 Respiratory Rate Blood Pressure Pulse Oximetry 91 96 97 Oxygen Delivery Method 07/03/24 13:30 07/03/24 13:53 Temperature 97.3 F L Pulse Rate 75 Respiratory Rate Blood Pressure 124/60 Pulse Oximetry 96 Oxygen Delivery Method Oxygen Delivery Method Room Air Narrative Exam Narrative: GENERAL: This is a well-nourished, well-developed patient, in no apparent distress. HEAD: Atraumatic. Normocephalic. No temporal or scalp tenderness. EYES: Pupils equal round and reactive. Extraocular motions intact. No scleral icterus. No injection or drainage. ENT: Mucous membranes pink and moist. NECK: Supple, nontender, no meningeal signs. CARDIOVASCULAR: Regular rate and rhythm without murmurs, gallops, or rubs. RESPIRATORY: Clear to auscultation. GASTROINTESTINAL: Abdomen soft, non-tender, nondistended. EXTREMITIES: No clubbing, cyanosis, or edema. BACK: Nontender without deformity or crepitance. No flank tenderness. NEUROLOGIC: Alert, oriented, speech fluent, full upper and lower motor strength, no focal deficits evident. DERMATOLOGIC: Left volar forearm with 2 cm superficial abrasion with Steri-Strips in place; lateral forearm with a longer healed 12-15 cm long abrasion; right knee with 4 cm superficial abrasion, scattered forearm and duncan 1-2 cm bruising noted. Objective ECG Impression: Sinus rhythm with 1st degree AV block at 90bpm; Right bundle branch block Imaging CT scan - head: Radiologist's impression: No acute intracranial hemorrhage is seen. No acute intracranial pathology. Chest x-ray: Radiologist's impression: Limited portable chest examination, without a significant cardiopulmonary abnormality identified. Labs 07/03/24 09:20 07/03/24 09:20 Labs: Laboratory Results - last 24 hr 07/03/24 07/03/24 07/03/24 09:20 09:32 11:25 WBC 8.5 RBC 4.67 Hgb 14.2 Hct 40.9 L MCV 87.7 MCH 30.4 MCHC 34.6 RDW 13.6 Plt Count 404 H Neut % (Auto) 80.5 H Lymph % (Auto) 9.8 L [place] % (Auto) 8.9 Eos % (Auto) 0.2 L Baso % (Auto) 0.6 Neut # (Auto) 6800 Lymph # (Auto) 800 L [place] # (Auto) 800 Eos # (Auto) 0 Baso # (Auto) 100 PT 13.3 H INR 1.2 APTT 34 Sodium 130 L Potassium 5.2 H Chloride 95 L Carbon Dioxide 23 BUN 22 H Creatinine 1.27 H Estimated GFR 59 L BUN/Creatinine Ratio 17.3 Glucose 448 H D Calcium 9.9 Magnesium 2.0 Total Bilirubin 1.1 AST 23 ALT 19 Alkaline Phosphatase 199 H Total Creatine Kinase 89 Troponin I < 0.012 NT-Pro-B Natriuret Pep 716 H Total Protein 7.9 Albumin 4.2 Globulin 3.7 Albumin/Globulin Ratio 1.1 Lipase 66 Procalcitonin 0.137 Urine Color Yellow Urine Appearance Turbid Urine pH 6.0 Ur Specific [place] 1.015 Urine Protein 2+ H Urine Glucose (UA) 3+ H Urine Ketones Negative Urine Occult Blood 2+ H Urine Nitrate Negative Urine Bilirubin Negative Urine Urobilinogen 0.2 Ur Leukocyte Esterase 3+ H Urine RBC 1-5/hpf Urine WBC >100/hpf H Ur Squamous Epith Cells None seen Urine Bacteria None seen Urine Yeast 5-10/hpf H Ur Culture Indicated? Specimen cultured Vol Urine Centrifuged 10ml (spun) Chlamy pneumoniae PCR Adenovirus (PCR) B.parapertussis DNA PCR Coronavirus OC43 (PCR) Coronavirus HKU1 (PCR) Coronavirus 229E (PCR) SARS-CoV-2 (PCR) Coronavirus NL63 (PCR) Human Metapneumovir PCR Influenza Type A (PCR) Influenza Type B (PCR) M. pneumoniae (PCR) Parainfluenza 1 (PCR) Parainfluenza 2 (PCR) Parainfluenza 3 (PCR) Parainfluenza 4 (PCR) RSV (PCR) Entero/Rhino (PCR) 07/03/24 11:37 WBC RBC Hgb Hct MCV MCH MCHC RDW Plt Count Neut % (Auto) Lymph % (Auto) [place] % (Auto) Eos % (Auto) Baso % (Auto) Neut # (Auto) Lymph # (Auto) [place] # (Auto) Eos # (Auto) Baso # (Auto) PT INR APTT Sodium Potassium Chloride Carbon Dioxide BUN Creatinine Estimated GFR BUN/Creatinine Ratio Glucose Calcium Magnesium Total Bilirubin AST ALT Alkaline Phosphatase Total Creatine Kinase Troponin I NT-Pro-B Natriuret Pep Total Protein Albumin Globulin Albumin/Globulin Ratio Lipase Procalcitonin Urine Color Urine Appearance Urine pH Ur Specific [place] Urine Protein Urine Glucose (UA) Urine Ketones Urine Occult Blood Urine Nitrate Urine Bilirubin Urine Urobilinogen Ur Leukocyte Esterase Urine RBC Urine WBC Ur Squamous Epith Cells Urine Bacteria Urine Yeast Ur Culture Indicated? Vol Urine Centrifuged Chlamy pneumoniae PCR Not detected Adenovirus (PCR) Not detected B.parapertussis DNA PCR Not detected Coronavirus OC43 (PCR) Not detected Coronavirus HKU1 (PCR) Not detected Coronavirus 229E (PCR) Not detected SARS-CoV-2 (PCR) Not detected Coronavirus NL63 (PCR) Not detected Human Metapneumovir PCR Not detected Influenza Type A (PCR) Not detected Influenza Type B (PCR) Not detected M. pneumoniae (PCR) Not detected Parainfluenza 1 (PCR) Not detected Parainfluenza 2 (PCR) Not detected Parainfluenza 3 (PCR) Not detected Parainfluenza 4 (PCR) Not detected RSV (PCR) Not detected Entero/Rhino (PCR) Not detected Assessment & Plan Assessment & Plan narrative: 1. Generalized weakness, possibly due to urinary tract infection. Complex picture in a patient with moderate cognitive impairment, likely early dementia, with findings of urinary tract infection. Procalcitonin was normal. Treat with IV ceftriaxone and follow cultures. Consult PT and OT. 2. Diabetes mellitus, type 2 out of control. Unclear if this is a compliance issue or dosing issue. Restart home dosing and monitor with sliding scale coverage and diabetic diet. 3. Left forearm and knee abrasions. 4. Acute kidney injury versus stage IIIA chronic kidney disease. encourage hydration and monitor. 5. Probable dementia. TSH was normal in February. Head CT shows no evidence of stroke. Obtain B12 level. He will benefit from assisted living facility placement. The role of medications is questionable as these generally delay the need for assisted living, which appears to be a point he has passed. 6. Hyperlipidemia. Continue simvastatin. 7. BPH. Continue tamsulosin and finasteride. 8. DVT prophylaxis: Subcutaneous Lovenox 9. Code status: Full code. The patient clearly states this on admission and family are present and state this is consistent with previous expressed wishes. Plan: -admit to observation -ceftriaxone 1 g IV every 24 hours -follow urine cultures -consult PT and OT -vitamin B12 level -discharge planning for assisted-living facility placement Time-Based Coding :: [TOTAL MINUTES] spent with patient and on the chart (including review of chart, obtaining history, exam, reviewing outside data, placing orders, documenting exam and treatment plan, and counseling patient) on [DATE]. Quality VTE Deep Vein Thrombosis/Pulmonary Embolism Present on Admission: No MIPS - Admit I confirm the patient?s Advance Care Plan is present, Code status is documented, Surrogate decision maker is in patient?s record [If Yes, STOP here]: Yes MIPS - Meds 'Current medications' to include all prescriptions, [id number] products, herbals, cannabis/cannabidiol products, and vitamin/mineral/dietary (nutritional) supplements. I have utilized all available resources to obtain, update, or review the patient?s current medications. [If Yes, STOP here]: Yes PROFEE Charge Codes Initial inpatient/observation care: 10121
[2024-07-03] MEDS: cefTRIAXone 1,000 MG in SODIUM CHLORIDE 0.9% 100 ML 200 MG IV (14:54)
[2024-07-03] MEDS: INSULIN GLARGINE 100 UNIT/ML 3ML PEN 30 UNIT SUBCUT (14:55)
[2024-07-03] MEDS: ENOXAPARIN 40 MG/0.4 ML SYRINGE SUBCUT (14:56)
[2024-07-03] MEDS: INSULIN LISPRO 100 UNIT/ML 3ML VIAL SUBCUT ×2 (17:00→20:53)
[2024-07-03] MEDS: METFORMIN HCL 500 MG TABLET PO (20:52)
[2024-07-03] MEDS: TAMSULOSIN 0.4 MG CAPSULE PO (20:52)
[2024-07-03] MEDS: ATORVASTATIN 20 MG TABLET 10 MG PO (20:53)
[2024-07-04] VITALS (7 sets, daily range): BP systolic 112–144; BP diastolic 64–87; PULSE 74–89; RESP 16–20; TEMP 36.3–37.1; O2SAT 97–100
[2024-07-04 06:17] LABS: Add Manual Diff / Slide Review NO; Basophils Absolute Auto 100 /uL (0-100); Basophils Percent Auto 0.8 % (0-2); Eosinophils Absolute Auto 100 /uL (0-450); Hematocrit 36.7 % (41-53); Lymphocytes Absolute Auto 1300 /uL (1100-4500); Lymphocytes Percent Auto 17.5 % (25-40); Mean Corpuscular HGB Conc 35.3 % (30-36); Mean Corpuscular Hemoglobin 30.7 PG (26-34); Mean Corpuscular Volume 86.9 fL (80-100); Monocytes Absolute Auto 700 /uL (0-900); Monocytes Percent Auto 9.8 % (3-14); Neutrophils Absolute Auto 5200 /uL (1500-7000); Neutrophils Percent Auto 70.9 % (50-75); Platelet Count 349 X10^3/uL (150-400); Red Blood Cell Count 4.22 X10^6/uL (4.5-5.9); Red Cell Distribution Width 13.3 % (11.6-14.8); White Blood Cell Count 7.4 X10^3/uL (4.5-11.0)
[2024-07-04 06:27] LABS: BUN Creatinine Ratio 19.6 (6-22); Blood Urea Nitrogen 21 mg/dL (9-20); Calcium 9.1 mg/dL (8.4-10.2); Carbon Dioxide 25 mmol/L (22-32); Chloride 104 mmol/L (98-107); Estimated Glomerular Filt Rate > 60 mL/min (>60); Glucose 128 mg/dL (80-110); HEMOLYSIS < 15 (0-50); Potassium 4.3 mmol/L (3.4-5.1); Sodium 135 mmol/L (137-145)
[2024-07-04 08:02] LABS: Vitamin B12 378 pg/mL (239-931)
[2024-07-04] MEDS: METFORMIN HCL 500 MG TABLET PO ×2 (08:19→21:02)
[2024-07-04] MEDS: INSULIN LISPRO 100 UNIT/ML 3ML VIAL SUBCUT ×4 (08:19→21:20)
[2024-07-04] MEDS: FINASTERIDE 5 MG TABLET PO (08:19)
[2024-07-04] MEDS: INSULIN GLARGINE 100 UNIT/ML 3ML PEN 30 UNIT SUBCUT (08:20)
[2024-07-04] MEDS: ENOXAPARIN 40 MG/0.4 ML SYRINGE SUBCUT (08:20)
--- NOTE | 2024-07-04 08:26 | P.PN_ITS ---
Subjective Subjective Interval history: From H&P: 74-year-old man under the primary care of Dr. Darion Seo was found down today by his daughter, after not answering his phone. She last spoke to him on 07/01 in the late evening, which time he stated he was feeling fine. He has moderate cognitive impairment and make several statements during our interview that his daughter states are inaccurate. He feels that he somehow had a soft landing on the ground as he had no injury, other than a small left forearm abrasion. However, he is not exactly sure how he did end up on the ground, though knows that he was too weak to get up by himself. He was brought to the emergency department for further evaluation and not found have a clear-cut reason for his weakness, though does have an abnormal urinalysis and severe hyperglycemia in the setting of chronic poorly controlled diabetes, with his most recent hemoglobin A1c 13.1% on 06/30/2024, previously 9.3% on 02/25/2024. He had been living at an assisted living facility in [facility] until about 4 months ago before returning home to live independently. He is seen with his daughter lives and son-in-law (who is a licensed clinical social worker in [place]) were hoping that he can return to an assisted living situation given their concerns over his ability to care for himself. S: He recounts an episode 3 years ago that was similar in terms of increased weakness. This had to do with a urinary tract infection and a retirement facility stay was required. He notes cloudy urine but denies any burning, or blood. No fevers, or chills. No recent diarrhea. No URI symptoms. Exam Vital Signs (past 8 hours): - 07/04/24 05:40 Temperature 97.5 F L Pulse Rate 85 Respiratory Rate 18 Blood Pressure 128/64 Pulse Oximetry 98 Oxygen Flow Rate 0 Oxygen Delivery Method Room Air Oxygen Flow Rate 0 Narrative Exam Narrative: NAD, alert and oriented. Fluent speech. Lungs are clear, normal rate and effort. Heart is regular, no murmur gallop or rub. Abdomen is soft, non distended. Extremities are free of edema. Objective ECG Impression: Sinus rhythm with 1st degree AV block Right bundle branch block Imaging Chest x-ray: Radiologist's impression: Limited portable chest examination, without a significant cardiopulmonary abnormality identified. CT scan - head: Radiologist's impression: No acute intracranial hemorrhage is seen. No acute intracranial pathology. Labs 07/04/24 05:52 07/04/24 05:52 Labs: Laboratory Results - last 24 hr 07/03/24 07/03/24 07/03/24 09:20 09:32 11:25 WBC 8.5 RBC 4.67 Hgb 14.2 Hct 40.9 L MCV 87.7 MCH 30.4 MCHC 34.6 RDW 13.6 Plt Count 404 H Neut % (Auto) 80.5 H Lymph % (Auto) 9.8 L [place] % (Auto) 8.9 Eos % (Auto) 0.2 L Baso % (Auto) 0.6 Neut # (Auto) 6800 Lymph # (Auto) 800 L [place] # (Auto) 800 Eos # (Auto) 0 Baso # (Auto) 100 PT 13.3 H INR 1.2 APTT 34 Sodium 130 L Potassium 5.2 H Chloride 95 L Carbon Dioxide 23 BUN 22 H Creatinine 1.27 H Estimated GFR 59 L BUN/Creatinine Ratio 17.3 Glucose 448 H D Calcium 9.9 Magnesium 2.0 Total Bilirubin 1.1 AST 23 ALT 19 Alkaline Phosphatase 199 H Total Creatine Kinase 89 Troponin I < 0.012 NT-Pro-B Natriuret Pep 716 H Total Protein 7.9 Albumin 4.2 Globulin 3.7 Albumin/Globulin Ratio 1.1 Lipase 66 Vitamin B12 Procalcitonin 0.137 Urine Color Yellow Urine Appearance Turbid Urine pH 6.0 Ur Specific [place] 1.015 Urine Protein 2+ H Urine Glucose (UA) 3+ H Urine Ketones Negative Urine Occult Blood 2+ H Urine Nitrate Negative Urine Bilirubin Negative Urine Urobilinogen 0.2 Ur Leukocyte Esterase 3+ H Urine RBC 1-5/hpf Urine WBC >100/hpf H Ur Squamous Epith Cells None seen Urine Bacteria None seen Urine Yeast 5-10/hpf H Ur Culture Indicated? Specimen cultured Vol Urine Centrifuged 10ml (spun) Chlamy pneumoniae PCR Adenovirus (PCR) B.parapertussis DNA PCR Coronavirus OC43 (PCR) Coronavirus HKU1 (PCR) Coronavirus 229E (PCR) SARS-CoV-2 (PCR) Coronavirus NL63 (PCR) Human Metapneumovir PCR Influenza Type A (PCR) Influenza Type B (PCR) M. pneumoniae (PCR) Parainfluenza 1 (PCR) Parainfluenza 2 (PCR) Parainfluenza 3 (PCR) Parainfluenza 4 (PCR) RSV (PCR) Entero/Rhino (PCR) 07/03/24 07/04/24 11:37 05:52 WBC 7.4 RBC 4.22 L Hgb 13.0 L Hct 36.7 L MCV 86.9 MCH 30.7 MCHC 35.3 RDW 13.3 Plt Count 349 Neut % (Auto) 70.9 Lymph % (Auto) 17.5 L [place] % (Auto) 9.8 Eos % (Auto) 1.0 L Baso % (Auto) 0.8 Neut # (Auto) 5200 Lymph # (Auto) 1300 [place] # (Auto) 700 Eos # (Auto) 100 Baso # (Auto) 100 PT INR APTT Sodium 135 L Potassium 4.3 Chloride 104 Carbon Dioxide 25 BUN 21 H Creatinine 1.07 Estimated GFR > 60 BUN/Creatinine Ratio 19.6 Glucose 128 H D Calcium 9.1 Magnesium Total Bilirubin AST ALT Alkaline Phosphatase Total Creatine Kinase Troponin I NT-Pro-B Natriuret Pep Total Protein Albumin Globulin Albumin/Globulin Ratio Lipase Vitamin B12 378 Procalcitonin Urine Color Urine Appearance Urine pH Ur Specific [place] Urine Protein Urine Glucose (UA) Urine Ketones Urine Occult Blood Urine Nitrate Urine Bilirubin Urine Urobilinogen Ur Leukocyte Esterase Urine RBC Urine WBC Ur Squamous Epith Cells Urine Bacteria Urine Yeast Ur Culture Indicated? Vol Urine Centrifuged Chlamy pneumoniae PCR Not detected Adenovirus (PCR) Not detected B.parapertussis DNA PCR Not detected Coronavirus OC43 (PCR) Not detected Coronavirus HKU1 (PCR) Not detected Coronavirus 229E (PCR) Not detected SARS-CoV-2 (PCR) Not detected Coronavirus NL63 (PCR) Not detected Human Metapneumovir PCR Not detected Influenza Type A (PCR) Not detected Influenza Type B (PCR) Not detected M. pneumoniae (PCR) Not detected Parainfluenza 1 (PCR) Not detected Parainfluenza 2 (PCR) Not detected Parainfluenza 3 (PCR) Not detected Parainfluenza 4 (PCR) Not detected RSV (PCR) Not detected Entero/Rhino (PCR) Not detected PFSH Medical History Cognitive decline History of acute renal failure Orthostatic hypotension Ureteral stone Bladder calculus Hydronephrosis concurrent with and due to calculi of kidney and ureter BPH (benign prostatic hyperplasia) Well adult exam Near-sightedness Psoriasis Measles Cellulitis of toe Actinic keratosis Basal cell carcinoma Eczema Diabetes Hyperlipidemia Hypertension Surgical History Anesthesia Status post amputation of extremity (~05/2013) Family History Mother Hypertension History of heart disease Father Parkinson's disease History of heart disease Social History household members: none Smoking Status: Never smoker alcohol intake: current substance use type: does not use Assessment & Plan Assessment & Plan narrative: 1. Generalized weakness. Complex picture in a patient with moderate cognitive impairment, likely early dementia, with findings of urinary tract infection. Procalcitonin was normal. TConsult PT and OT. 2. Diabetes mellitus, type 2 out of control. Unclear if this is a compliance issue or dosing issue. Restart home dosing and monitor with sliding scale coverage and diabetic diet. 3. Left forearm and knee abrasions. 4. Acute kidney injury versus stage IIIA chronic kidney disease. encourage hydration and monitor. 5. Probable dementia. TSH was normal in February. Head CT shows no evidence of stroke. Obtain B12 level. He will benefit from assisted living facility placement. The role of medications is questionable as these generally delay the need for assisted living, which appears to be a point he has passed. 6. Hyperlipidemia. Continue simvastatin. 7. BPH. Continue tamsulosin and finasteride. 8. DVT prophylaxis: Subcutaneous Lovenox 9. Code status: Full code. The patient clearly states this on admission and family are present and state this is consistent with previous expressed wishes. PLAN: -stop Abx as culture is negative, -eval for rehab needs and possible return to [facility]. Time-Based Coding :: 25 min spent with patient and on the chart (including review of chart, obtaining history, exam, reviewing outside data, placing orders, documenting exam and treatment plan, and counseling patient) on 07/04. Quality VTE Deep Vein Thrombosis/Pulmonary Embolism Present on Admission: No
--- NOTE | 2024-07-04 12:09 | PT.IIE ---
Surgical History (Last Reviewed 07/04/24 @ 08:28 by Micky Castellon MD) Anesthesia Status post amputation of extremity (~05/2013) Medical History (Last Reviewed 07/04/24 @ 08:28 by Micky Castellon MD) Actinic keratosis Basal cell carcinoma Bladder calculus BPH (benign prostatic hyperplasia) Cellulitis of toe Cognitive decline Diabetes Eczema History of acute renal failure Hydronephrosis concurrent with and due to calculi of kidney and ureter Hyperlipidemia Hypertension Measles Near-sightedness Orthostatic hypotension Psoriasis Ureteral stone Well adult exam Physical Therapy Inpatient Evaluation/Re-Eval M1 PT/OT-IP Prior Functional Status Start: 07/04/24 11:40 Freq: NEEDED Status: Active Protocol: Document 07/04/24 11:45 MB (Rec: 07/04/24 12:09 MB [id number]) Medical Review Prior Functional Status Medical History Reviewed Yes Communication Poor memory, no communication issues noted, unsure baseline diet Mobility and Gait Occ used 2WRW per pt Activities of Daily Living and IADL's Pt is unable to report, states he is a bachelor and does not provide other information Social History Number of Stairs To Enter/Railing? Pt is unable to provide further information today Home Equipment Front Wheel Walker Additional Social History Comment Pt is unable to provide more information today M2 PT-IP Current Condition Start: 07/04/24 11:40 Freq: NEEDED Status: Active Protocol: Document 07/04/24 11:45 MB (Rec: 07/04/24 12:09 MB [id number]) Physical Therapy Current Condition Current Condition Evaluation Date 07/04/24 Treatment Diagnosis Syncope, confusion M3 PT-IP Subjective Start: 07/04/24 11:40 Freq: NEEDED Status: Active Protocol: Document 07/04/24 11:45 MB (Rec: 07/04/24 12:09 MB [id number]) Subjective Physical Therapy Visit Type Type Initial Evaluation Visit Start Time 11:45 Visit Stop Time 11:59 Number of RISK CONTROL PRODUCT LIABILITY DIRECTOR Visits 0 Physical Therapy Visit Comments Patient Comments No spontaneous verbalizations, pt with some lethargy and confusion Therapy Pain Assessment Pain When Pain Assessed At Rest Pain Present Pain Present Denied Pain M4 PT-IP Mobility and Gait Start: 07/04/24 11:40 Freq: NEEDED Status: Active Protocol: Document 07/04/24 11:45 MB (Rec: 07/04/24 12:09 MB [id number]) PT-Bed Mobility Assessment Rolling Type of Rolling Roll to Left Level of Assist Contact Guard Assistance Supine to Sit Supine to Sit Contact Guard Assistance,1 Person Assistance,Head of Bed Elevated,Bedrails Scooting Scooting to Edge of Bed Contact Guard Assistance Scooting Up and Down in Bed Contact Guard Assistance PT-Transfer Assessment Sit to and From Stand Sit to and from Stand Minimal Assistance,1 Person Assistance,Use of Upper Extremities Equipment Transfer Assistive Device Gait Belt,Front Wheeled Walker Orthotic/Prosthetic Devices or Brace: No Transfers Transfer Destination Chair,Toilet Transfer Technique Ambulation Transfer Ability Level of Assist Minimal Assistance,1 Person Assistance Comments Mobility Comments PT attempts to check BP to see if it is dropping but cuff does not read once pt is sitting. BP and HR in LUE: hook lying 121/74, 79; sitting does not read; standing once short gait to chair 160/112, 98. Pt states he needs to use the rest room and so gait trained to BR. Gait Assessment Gait Gait Assistance Required: Minimum Assistance Distance (Feet) 20 Able to Maintain Weight Bearing Status Yes During Gait Assistive Devices Assistive Device Gait Belt,Front Wheeled Walker Orthotic/Prosthetic Devices or Brace: No Gait Deviations General Gait Pattern Decreased Stride Length, Decreased Feet Clearance, Flexed Trunk,Step-to Gait,Wide Based Gait Factors Limiting Gait Function Factors Limiting Gait Function Decreased Activity Tolerance, Decreased Strength,Difficulty Following Directions, Incoordination,Limited Range of Motion,Poor Balance,Poor Safety Awareness Comments Gait Comments 20'x1, 10'x1, PT is unable to fully assess gait pattern d/t BP line and needing to assist pt with walker and then with briefs and backing up to toilet. He might have some stepping differences in left foot/ankle with gait. PT-Balance Assessment Sitting Balance and Reactions Static Sitting Balance Ability Fair Dynamic Sitting Balance Ability Fair Standing Balance and Reactions Static Standing Balance Ability Fair Dynamic Standing Balance Ability Fair Device Used RW M5 PT-IP Objective Assessments Start: 07/04/24 11:40 Freq: NEEDED Status: Active Protocol: Document 07/04/24 11:45 MB (Rec: 07/04/24 12:09 MB [id number]) Orientation Orientation/Cognition Level of Alertness Confusional State Orientation Name,Age,Birthday,Month,Year Language Function Ability No Deficits Noted Safety Awareness Decreased Safety Awareness Memory Description Short Term Impaired,Wall Worker Impaired Gross Range of Motion Upper Extremity ROM Impairments Defer to OT Lower Extremity ROM Impairments Functional weakness in left LE with stepping Strength Comments Strength Comments PT is unable to get MMT completed d/t priority for orthostatics once moving and pt asking to get to BR for BM. He appears to have some functional weakness in left ankle and foot with gait and this can be re-checked as he tolerates more mobility M6 PT-IP Treatment Start: 07/04/24 11:40 Freq: NEEDED Status: Active Protocol: Document 07/04/24 11:45 MB (Rec: 07/04/24 12:09 MB [id number]) Physical Therapy Treatment Education Education Provided Safety M7 PT-IP Assessment and Plan Start: 07/04/24 11:40 Freq: NEEDED Status: Active Protocol: Document 07/04/24 11:45 MB (Rec: 07/04/24 12:09 MB [id number]) PT Summary Assessment and Plan Potential Rehabilitation Potential Fair Status of Condition at Evaluation Evolving Summary Impairments ROM,Strength,Balance,Cognition ,Bed Mobility,Transfers,Gait, Activity Tolerance Progress Towards Goals Slow Progress due to Activity Tolerance Assessment Summary Pt is a gentleman presenting with cognitive changes, imbalance, decreased functional strength on assessment date. He will benefit from PT to improve functional mobility and balance. Orthostatic BP did not read today with sitting and so may benefit from re- checking. Recommend up with nsg assistance and RW. Left with EDGE STAINER with pt on toilet and alarm for chair in room. Goals Bed Mobility Goal Independent Transfer Goal Standby Assistance,Front Wheeled Walker Gait Goal Standby Assistance,Front Wheel Walker Gait Distance 100 Days to Meet Goals 5 Frequency of Treatment Frequency Of Treatment Once a Day Treatment Plan Physical Therapy Treatment Plan Bed Mobility Training,Transfer Training,Gait Training, Therapeutic Exercise,Balance Retraining,Discharge Planning, Hot or Cold Pack,Neuromuscular Re-ed,Coordination Retraining Weight Bearing Status Weight Bearing Status Weight Bear as Tolerated Recommendations To Nursing Amount of Assist Needed 1 Person Assist Discharge Recommendations PT Discharge Recommendations SNF Rehab Other Discharge Recommendations SNF vs [facility] Transportation Needs at Discharge Private Vehicle,Wheelchair/ Cabulance
--- NOTE | 2024-07-04 13:35 | CM.DANOTE ---
Addendum entered by Shakira Alicea, SALES AND MARKETING ANALYST 07/04/24 15:49: ADD: Call from Sarah at [facility] confirming that pt's Dtr was in their building and picked out an apt for patient and doing the pwk. Sarah plans to complete bedside assess with pt tomorrow 07/05 mid morning. BF Addendum entered by Shakira Alicea, SALES AND MARKETING ANALYST 07/04/24 15:32: ADD: SW spoke to OT who confirms she completed SLUMS and pt scored 20/30 which still shows mild dementia but that pt was able to participate better than anticipated and mostly short term memory issues and would really benefit for Assisted Living for support with meals, medication monitoring. BF Original Note: Patient is a 74 yo male who was admitted OBS Status on 07/03/24 for Syncope/Found Down. Pt has MCR and [employer] for insurance and his PCP is Dr. Trever Seo. EMR was reviewed. Per MD, pt found down after unknown amount of time and admitted for poorly controlled diabetes, UTI, with mild cognitive impairment. Getting IV-Abx and fluids. PT, SNF vs [facility] pending progress as unable to assess gait and strength much due to needing to use BR for BM and possible orthostatics. OT ordered and pending for SLUMS this afternoon. SW met bedside with pt and explained role and pt able to answer questions appropriately but pt unable to remember timeframe of events and quite forgetful. Pt confirms he has been living at home alone after being at SNF and then time at Assisted Living facility around [place]. Pt aware that he has a hx of falls over the past year or two and might not be safe for return home alone. Pt confirms that his Dtr Shaista is his DPOA and scanned into chart and agreeable with SW calling Dtr to gather more information and for discharge coordination. SW called Dtr Shaista Naqvi and explained role and she confirms that patient has mild dementia and that he had been to SNF at [facility] in [place] and then went to [facility] for a month and really improved there and so they tried moving pt back home to [facility] where he has been for 4 months but Dtr states pt is no longer safe to live alone at this time. Dtr confirms that due to owning his own home, he is over finances to qualify for Medicaid LTC as he has too much in assets. SW explained that pt currently OBS Status and therefore as of now Medicare would not cover the cost of SNF. Dtr states if pt is able to be switched to Inpt Status then preference is SNF at [facility] again in [place]. If pt remains OBS, then [facility] [place] again ([phone]) and aware that pt may be stable for discharge by tomorrow 07/05. SW called [facility] and spoke to Sarah who states she would be the one to assess pt bedside and that pt was a great resident when he was living there and does not anticipate any issues with accepting him but will need bedside assessment prior to admission and that their Marketing team (Amirah or Maeve) would need to coordinate with family for pwk, payment, and move in of furniture as their apts are not furnished and they anticipate possible move in Wed although they are aware pt could be discharged by tomorrow . Nevaeh kindly faxed requested clinicals to both fax numbers [phone] and fax [phone]. CRISTAL called Dtr Donya back and updated that [facility] needs her to contact them to coordinate coming there to complete pwk and furniture to be set up in the studio apt they have. Dtr very willing to go there today to do pwk and to buy a bed and provide any furniture needed today and tomorrow towards move in elise. In case SNF needed at d/c, CRISTAL called Dtr SNF preference of [facility] admissions [phone] and left detailed msg and faxed new referral to fax #[phone] as a backup. Plan: SW to follow for review by [facility] to confirm they can accept and confirm they can complete bedside assessment by tomorrow 07/05 and coordination with Dtr for move in pwk and furniture elise for hopeful discharge tomorrow as pt OBS Status at this time. [facility] reviewing as b/u in case pt ends up meeting Inpt Criteria for SNF coverage. TRACY Ceballos Discharge Planning/Care Management CM Discharge Assessment Start: 07/04/24 10:41 Freq: Status: Active Protocol: Document 07/04/24 10:41 BF (Rec: 07/04/24 10:53 BF [id number]) Discharge Planning Assessment Assigned Technician Anatomic Pathology TRACY Rosenberg DPOA/Assigned Designee Name Qamar Noonan Contact Information [phone] Advance Directives? No Advance Directives on File Yes History Provided By Patient,Family Member,Medical Record Has Patient been admitted in last 30 No days? Prior Living Arrangements House Household Members none Type of transporation used prior to Relies on Others admit Independent with ADL's Yes: somewhat Is patient alert and oriented? No: mild to mod cog impairment Needs Assistance With Meal Prep,Managing Medications ,Home Chores / Shopping Caregiver for Another No DME Already Rented / Owned Cane Comment If pt doesn't qualify for SNF, family wanting Assisted Living Barriers to Discharge No Discharge Plan Assisted Living Facility Transportation Arrangement Likely Dtr or SHALONDA who live in [place] or maybe ex- Lidia Mitchell Referrals Initiated Other Additional Comment Makayla MAIN reviewing clinicals Whiteboard Updated in Patient Room with Yes name and ext. # of Technician Anatomic Pathology Review Status In Process Please Provide Date Initial DC 07/04/24 Assessment Was Performed Next Review Type Continued Stay Review
--- NOTE | 2024-07-04 15:16 | OT.IP.EVAL ---
Past Medical History (Last Reviewed 07/04/24 @ 08:28 by Micky Castellon MD) Actinic keratosis Basal cell carcinoma Bladder calculus BPH (benign prostatic hyperplasia) Cellulitis of toe Cognitive decline Diabetes Eczema History of acute renal failure Hydronephrosis concurrent with and due to calculi of kidney and ureter Hyperlipidemia Hypertension Measles Near-sightedness Orthostatic hypotension Psoriasis Ureteral stone Well adult exam Surgical History (Last Reviewed 07/04/24 @ 08:28 by Micky Castellon MD) Anesthesia Status post amputation of extremity (~05/2013) Occupational Therapy Inpatient Evaluation/Re-Eval M1 PT/OT-IP Prior Functional Status Start: 07/04/24 11:40 Freq: NEEDED Status: Active Protocol: Document 07/04/24 11:45 ML (Rec: 07/04/24 12:09 MB [id number]) Medical Review Prior Functional Status Medical History Reviewed Yes Communication Poor memory, no communication issues noted, unsure baseline diet Mobility and Gait Occ used 2WRW per pt Activities of Daily Living and IADL's Pt is unable to report, states he is a bachelor and does not provide other information Social History Number of Stairs To Enter/Railing? Pt is unable to provide further information today Home Equipment Front Wheel Walker Additional Social History Comment Pt is unable to provide more information today M1 PT/OT-IP Prior Functional Status Start: 07/04/24 14:50 Freq: NEEDED Status: Active Protocol: Document 07/04/24 14:50 TOMY (Rec: 07/04/24 15:16 TOMY [id number]) Medical Review Prior Functional Status Medical History Reviewed Yes Communication pt has impaired short term memory. pt is diabetic. pt is able to make needs known Mobility and Gait when amb outside of home pt used FWW. in home pt did not use AD. Activities of Daily Living and IADL's pt reports he performed his own BADLs, prepared meals, performed housework, yard work, and grocery shopping Social History Household Members none Living Arrangements House Number of Floors (Floors) Two Floors Number of Stairs To Enter/Railing? pt reports a steep driveway and 8-10 steps to front entrance with railing on R, 12 -15 to basement with railing on R Home Environment Standard Height Toilet,Walk in Shower,Tub/Shower Home Equipment Front Wheel Walker,Shower Seat without Backrest,Bed Rails, Grab Bars Near Toilet,Grab Bars In Shower Additional Social History Comment Pt reports that he was living in an [facility] until 4 months ago. He has been living alone since and reports being I with driving, medication mgmt, money mgmt, etc. M2 OT-IP Current Condition Start: 07/04/24 14:50 Freq: Status: Active Protocol: Document 07/04/24 14:50 TMOY (Rec: 07/04/24 15:16 [email or web address] [id number]) Occupational Therapy Current Condition Current Condition Evaluation Date 07/04/24 Treatment Diagnosis syncope, confusion Diagnosis Onset Date 07/03/24 M3 OT- IP Subjective and Pain Start: 07/04/24 14:50 Freq: Status: Active Protocol: Document 07/04/24 14:50 TOMY (Rec: 07/04/24 15:16 KATIETXMARYBEL [id number]) OT- Subjective Occupational Therapy Visit Type Type Initial Evaluation Visit Start Time 13:45 Visit Stop Time 14:27 Notes Pt reclined in bed on entrance of OT. Pt agreeable to participating in eval. Occupational Therapy Visit Comments Patient Comments I want to figure out why I keep ending up on the floor! OT Pain Assessment Pain When Pain Assessed After Treatment Pain Present Pain Present Denied Pain M4 OT- IP ADL's Start: 07/04/24 14:50 Freq: Status: Active Protocol: Document 07/04/24 14:50 TOMY (Rec: 07/04/24 15:16 KATIETXNSJENNI [id number]) OT [id number] Comments OT Self-Feeding Comments not observed during eval OT ADL-Grooming General Evaluation Grooming Ability Standby Assistance Comments OT Grooming Comments pt was able to open package on brush and comb/brush his mcdonald and hair. pt quit brushing hair prior to removing all of his tangles. OT ADL-Oral Care Comments Oral Care Comments pt declined to perform OT ADL-Dressing General Eval Upper Body Dressing Ability Standby Assistance Lower Body Dressing Ability Standby Assistance Comments OT Dressing Comments pt demonstrates don/doff socks while sitting EOB with SBA. OT ADL-Toileting General Evaluation Toileting Ability Standby Assistance Devices Toileting Assistive Devices Urinal OT ADL-Bathing Comments OT Bathing Comments pt declined bathing during eval. pt would benefit from EOB bathing or shower chair with bathing. M5 OT- IP IADL's Start: 07/04/24 14:50 Freq: Status: Active Protocol: Document 07/04/24 14:50 KATIELUANACARLIEJENNI (Rec: 07/04/24 15:16 [facility] [id number]) OT-Instrumental Activities of Daily Living Deficits IADL Deficits Identified Deficits Home Safety Awareness Awareness of Need for Assistance at Home Decreased Awareness Ability to Problem Solve Emergency Unable to Problem Solve Situations Home Safety Comments pt is a diabetic. discussed pts typical meals (pastries and fruit). pt unable to problem solve other meal options. Medication Management Medication Management Comments pt may need assistance administering on d/c Money Management Money Management Comments pt may need assistance. Meal Preparation Meal Preparation Comments pt may need assistance preparing healthy diabetic friendly meals. Transplant Registered Nurse Transplant Registered Nurse No Deficits Identified Driving Driving Comments pt may need assistance. M6 OT- IP Functional Cognition Start: 07/04/24 14:50 Freq: Status: Active Protocol: Document 07/04/24 14:50 KATIELUANACARLIEJENNI (Rec: 07/04/24 15:16 [facility] [id number]) Cognitive Factors Limiting Selfcare Function Cognitive Ability Level of Alertness Alert Patient Orientation Name,Age,Birthday,Year,Place, Situation Attention Span Ability Capable of Focused Attention, Capable of Sustained Attention Ability to Follow Commands Able to Follow One Step Commands,Able to Follow Multi- Step Commands Memory Description Short Term Impaired Safety Awareness Underestimates Need for Assistance Cognitive Tests SLUMS Pt scored a 20/30 on SLUMS. Pt did not know day of week, unable to recall 2 of 5 objects, unable to make change , unable to reverse numbers, and unable to accurately martha time on clock. Cognitive Comments Cognitive Assessment Comments Eval performed after lunch. At end of eval pt states I haven't had my lunch yet OT asked pt if he was sure. He said that he was. OT spoke with nsg who assured that pt ate his lunch. Pt appears to have some STM deficits. OT- Vision and Hearing OT- Hearing Assessment OT- Hearing Assessment WFL OT- Vision Assessment Visual Acuity WFL,Glasses All The Time M7 OT- IP Mobility and Balance Start: 07/04/24 14:50 Freq: Status: Active Protocol: Document 07/04/24 14:50 TOMY (Rec: 07/04/24 15:16 [facility] [id number]) OT- Bed Mobility Assessment Rolling Type of Rolling Roll to Left Level of Assistance Standby Assistance Supine to Sit Supine to Sit Assist Minimal Assistance,1 Person Assistance Sit to Supine Sit to Supine Assist Standby Assistance Scooting Scooting to Edge of Bed Standby Assistance Scooting Up and Down in Bed Standby Assistance OT-Transfer Assessment Sit to and From Stand Sit to and from Stand Contact Guard Assistance, Minimal Assistance Transfers Transfer Ability Contact Guard Assistance Technique Transfer Destination Bed Devices Transfer Assistive Devices Gait Belt,Front Wheeled Walker Comments Mobility Comments pt requires vcs to push up from bed for sit>stand. pt requires vcs to adjust trunk in bed so that he is lying at midline. OT- Gait Assessment Gait Gait Assistance Required: Contact Guard Assist Distance (Feet) 25 Assistive Devices Assistive Device Gait Belt,Front Wheeled Walker Comments Gait Ability Comments pt amb from bed to cabinet and then to sink. pt performed BADLs at sink side. pt declined sitting up in chair or using bathroom so pt returned to bed. OT- Balance Assessment Sitting Balance and Reactions Static Sitting Balance Ability Good Dynamic Sitting Balance Ability Fair Standing Balance and Reactions Static Standing Balance Ability Good Dynamic Standing Balance Ability Fair M8 OT- IP Objective Assessments Start: 07/04/24 14:50 Freq: Status: Active Protocol: Document 07/04/24 14:50 TOMY (Rec: 07/04/24 15:16 [facility] [id number]) OT Gross Range of Motion Upper Extremity Range of Motion Assessment Within Functional Limits ROM Impairments Pt has approximately 145 deg of B shoulder flex/abd OT Strength Upper Extremity Strength Assessment Within Functional Limits Hand Director Of Acquisition Marketing Strength Hand Dominance Right Comments Strength Comments Pt R UE 5/5 grossly and L UE 4 /5 grossly OT-Muscle Tone Assessment Muscle Tone WNL No OT Sensation Assessment Edema Edema Absent M9 OT- IP Assessment and Plan Start: 07/04/24 14:50 Freq: Status: Active Protocol: Document 07/04/24 14:50 TOMY (Rec: 07/04/24 15:16 [facility] [id number]) OT Summary Assessment and Plan Potential Rehabilitation Potential Good Analytic Complexity at Evaluation Low Summary OT Impairments Range of Motion,Balance, Functional Cognition, Functional Mobility,Grooming, Dressing,Toileting,Bathing, Toilet Transfers,Shower Transfers,Activity Tolerance Progress Towards Goals Progressing Toward Goals,Slow Progress due to Cognition Assessment Summary Pt is 74 yo M who presented to ED by medics after lying on his bedroom floor for approximately 48 hours. Pt presents with cognitive changes, imbalance, activity intolerance, impaired BADLs/ IADLs. Pt would benefit from skilled OT services to address pt deficits and promote return to PLOF. Pt left reclined in bed with all needs met, bed exit alarm set, and nsg notified Goals Self-Feeding Goal Independent Grooming Goal Independent Dressing Goal Independent Toileting Goal Independent Bathing Goal Independent Toilet Transfer Goal Independent Shower Transfer Goal Independent Days to Meet Goals 5 Frequency of Treatment Frequency Of Treatment Once a Day Treatment Plan OT Treatment Plan ADL Training,Functional Cognition Training,Functional Mobility,Therapeutic Exercises ,Patient/Family Education, Discharge Planning Discharge Recommendations OT Discharge Recommendations SNF Rehab Other Discharge Recommendations SNF vs [facility] Transportation Needs at Discharge Private Vehicle,Wheelchair/ Cabulance,Stretcher/Ambulance
[2024-07-04] MEDS: TAMSULOSIN 0.4 MG CAPSULE PO (21:02)
[2024-07-04] MEDS: ATORVASTATIN 20 MG TABLET 10 MG PO (21:03)
[2024-07-04] MEDS: INSULIN GLARGINE 100 UNIT/ML 3ML PEN 15 UNIT SUBCUT (21:20)
[2024-07-05 03:00] VITALS: BP 99/67; PULSE 75; RESP 18; TEMP 36.8; O2SAT 98
[2024-07-05 08:00] VITALS: BP 127/70; PULSE 76; RESP 16; TEMP 36.8; O2SAT 99
[2024-07-05 08:34] LABS: Hematocrit 36.1 % (41-53); Hemoglobin 12.4 g/dL (13.5-17.5); Mean Corpuscular HGB Conc 34.3 % (30-36); Mean Corpuscular Hemoglobin 30.6 PG (26-34); Mean Corpuscular Volume 89.2 fL (80-100); Platelet Count 319 X10^3/uL (150-400); Red Blood Cell Count 4.05 X10^6/uL (4.5-5.9); Red Cell Distribution Width 13.7 % (11.6-14.8); White Blood Cell Count 7.5 X10^3/uL (4.5-11.0)
[2024-07-05 08:47] LABS: Alanine Aminotransferase 11 IU/L (<50); Alkaline Phosphatase 143 U/L (38-126); Aspartate Aminotransferase 18 IU/L (17-59); BUN Creatinine Ratio 22.1 (6-22); Bilirubin Total 0.7 mg/dL (0.2-1.3); Blood Urea Nitrogen 23 mg/dL (9-20); Calcium 9.1 mg/dL (8.4-10.2); Carbon Dioxide 26 mmol/L (22-32); Chloride 104 mmol/L (98-107); Estimated Glomerular Filt Rate > 60 mL/min (>60); Glucose 144 mg/dL (80-110); HEMOLYSIS < 15 (0-50); Potassium 4.4 mmol/L (3.4-5.1); Sodium 135 mmol/L (137-145)
[2024-07-05] MEDS: METFORMIN HCL 500 MG TABLET PO ×2 (08:58→21:22)
[2024-07-05] MEDS: FINASTERIDE 5 MG TABLET PO (08:58)
[2024-07-05] MEDS: ENOXAPARIN 40 MG/0.4 ML SYRINGE SUBCUT (08:59)
[2024-07-05] MEDS: INSULIN GLARGINE 100 UNIT/ML 3ML PEN 15 UNIT SUBCUT ×2 (08:59→21:48)
--- NOTE | 2024-07-05 09:00 | PT.IPTN ---
Physical Therapy Treatment Note M2 PT-IP Current Condition Start: 07/04/24 11:40 Freq: NEEDED Status: Active Protocol: Document 07/04/24 11:45 MB (Rec: 07/04/24 12:09 MB [id number]) Physical Therapy Current Condition Current Condition Evaluation Date 07/04/24 Treatment Diagnosis Syncope, confusion M3 PT-IP Subjective Start: 07/04/24 11:40 Freq: NEEDED Status: Active Protocol: Document 07/05/24 09:24 TS (Rec: 07/05/24 09:36 TS [id number]) Subjective Physical Therapy Visit Type Type Treatment Note Visit Start Time 09:00 Visit Stop Time 09:23 Number of SELF DEFENSE INSTRUCTOR Visits 1 Physical Therapy Visit Comments Patient Comments Pt found resting in bed, reports feeling weak, he is agreeable to PT. M4 PT-IP Mobility and Gait Start: 07/04/24 11:40 Freq: NEEDED Status: Active Protocol: Document 07/05/24 09:24 TS (Rec: 07/05/24 09:36 TS [id number]) PT-Bed Mobility Assessment Supine to Sit Supine to Sit Contact Guard Assistance,1 Person Assistance,Head of Bed Elevated,Bedrails Sit to Supine Sit to Supine Standby Assistance Scooting Scooting to Edge of Bed Contact Guard Assistance PT-Transfer Assessment Sit to and From Stand Sit to and from Stand Contact Guard Assistance Equipment Transfer Assistive Device Gait Belt,Front Wheeled Walker Orthotic/Prosthetic Devices or Brace: No Comments Mobility Comments Supine to sit CGA with HOB elevated. STS with FWW CGA, pt has good standing balance. He ambulated ~150'SBA/CGA with FWW, pt tends to bump into allison and drift to L side. Pt was left back in bed, all needs met. Gait Assessment Gait Gait Assistance Required: Standby Assistance,Contact Guard Assist Distance (Feet) 150 Able to Maintain Weight Bearing Status Yes During Gait Assistive Devices Assistive Device Gait Belt,Front Wheeled Walker Orthotic/Prosthetic Devices or Brace: No Gait Deviations General Gait Pattern Decreased Stride Length, Decreased Feet Clearance, Flexed Trunk,Step-to Gait,Wide Based Gait Factors Limiting Gait Function Factors Limiting Gait Function Decreased Activity Tolerance, Decreased Strength,Difficulty Following Directions, Incoordination,Limited Range of Motion,Poor Balance,Poor Safety Awareness PT-Balance Assessment Sitting Balance and Reactions Static Sitting Balance Ability Good Dynamic Sitting Balance Ability Fair Standing Balance and Reactions Static Standing Balance Ability Good Dynamic Standing Balance Ability Fair Device Used FWW M5 PT-IP Objective Assessments Start: 07/04/24 11:40 Freq: NEEDED Status: Active Protocol: Document 07/04/24 11:45 MB (Rec: 07/04/24 12:09 MB [id number]) Orientation Orientation/Cognition Level of Alertness Confusional State Orientation Name,Age,Birthday,Month,Year Language Function Ability No Deficits Noted Safety Awareness Decreased Safety Awareness Memory Description Short Term Impaired,Half-Way Impaired Gross Range of Motion Upper Extremity ROM Impairments Defer to OT Lower Extremity ROM Impairments Functional weakness in left LE with stepping Strength Comments Strength Comments PT is unable to get MMT completed d/t priority for orthostatics once moving and pt asking to get to BR for BM. He appears to have some functional weakness in left ankle and foot with gait and this can be re-checked as he tolerates more mobility M6 PT-IP Treatment Start: 07/04/24 11:40 Freq: NEEDED Status: Active Protocol: Document 07/05/24 09:24 TS (Rec: 07/05/24 09:36 TS [id number]) Physical Therapy Treatment Education Education Provided Safety M7 PT-IP Assessment and Plan Start: 07/04/24 11:40 Freq: NEEDED Status: Active Protocol: Document 07/05/24 09:24 TS (Rec: 07/05/24 09:36 TS [id number]) PT Summary Assessment and Plan Potential Rehabilitation Potential Fair Summary Impairments ROM,Strength,Balance,Cognition ,Bed Mobility,Transfers,Gait, Activity Tolerance Progress Towards Goals Progressing Toward Goals Assessment Summary Eric is making some progress with his mobility this session . He continues ot be SBA/CGA for bed mobility and STS with FWW. He progressed his gait to ~150'SBA/CGA with FWW. He tends to drift to his L side and bump into allison with gait. He continues to have some weakness. PT is recommending SNF vs [facility]. Goals Bed Mobility Goal Independent Transfer Goal Standby Assistance,Front Wheeled Walker Gait Goal Standby Assistance,Front Wheel Walker Gait Distance 100 Days to Meet Goals 5 Frequency of Treatment Frequency Of Treatment Once a Day Treatment Plan Physical Therapy Treatment Plan Bed Mobility Training,Transfer Training,Gait Training, Therapeutic Exercise,Balance Retraining,Discharge Planning, Hot or Cold Pack,Neuromuscular Re-ed,Coordination Retraining Weight Bearing Status Weight Bearing Status Weight Bear as Tolerated Recommendations To Nursing Amount of Assist Needed 1 Person Assist Discharge Recommendations PT Discharge Recommendations SNF Rehab Other Discharge Recommendations SNF vs [facility] Transportation Needs at Discharge Private Vehicle,Wheelchair/ Cabulance
--- NOTE | 2024-07-05 10:36 | PM.PN.1 ---
Subjective Subjective Interval history: Summary: 74-year-old man under the primary care of Dr. Darion Seo was found down today by his daughter, after not answering his phone. She last spoke to him on 07/01 in the late evening, which time he stated he was feeling fine. He has moderate cognitive impairment and make several statements during our interview that his daughter states are inaccurate. He feels that he somehow had a soft landing on the ground as he had no injury, other than a small left forearm abrasion. However, he is not exactly sure how he did end up on the ground, though knows that he was too weak to get up by himself. He was brought to the emergency department for further evaluation and not found have a clear-cut reason for his weakness, though does have an abnormal urinalysis and severe hyperglycemia in the setting of chronic poorly controlled diabetes, with his most recent hemoglobin A1c 13.1% on 06/30/2024, previously 9.3% on 02/25/2024. He had been living at an assisted living facility in [facility] until about 4 months ago before returning home to live independently. He is seen with his daughter lives and son-in-law (who is a high school social studies teacher in [place]) were hoping that he can return to an assisted living situation given their concerns over his ability to care for himself. S: He notes general weakness, and denies any confusion today. He asks why he was in the hospital. He has a bedside assessment from the assisted living facility this morning. Exam Vital Signs (past 8 hours): - 07/05/24 03:00 07/05/24 08:00 Temperature 98.2 F 98.3 F Pulse Rate 75 76 Respiratory Rate 18 16 Blood Pressure 99/67 127/70 Pulse Oximetry 98 99 Oxygen Flow Rate 0 Oxygen Delivery Method Room Air Oxygen Flow Rate 0 Narrative Exam Narrative: NAD, alert and oriented. Fluent speech. Lungs are clear, normal rate and effort. Heart is regular, no murmur gallop or rub. Abdomen is soft, non distended. Extremities are free of edema. Objective Labs 07/05/24 08:15 07/05/24 08:15 Labs: Laboratory Results - last 24 hr 07/05/24 08:15 WBC 7.5 RBC 4.05 L Hgb 12.4 L Hct 36.1 L MCV 89.2 MCH 30.6 MCHC 34.3 RDW 13.7 Plt Count 319 Sodium 135 L Potassium 4.4 Chloride 104 Carbon Dioxide 26 BUN 23 H Creatinine 1.04 Estimated GFR > 60 BUN/Creatinine Ratio 22.1 H Glucose 144 H Calcium 9.1 Total Bilirubin 0.7 AST 18 ALT 11 Alkaline Phosphatase 143 H Total Protein 6.0 L Albumin 3.0 L Globulin 3.0 Albumin/Globulin Ratio 1.0 PFSH Medical History Cognitive decline History of acute renal failure Orthostatic hypotension Ureteral stone Bladder calculus Hydronephrosis concurrent with and due to calculi of kidney and ureter BPH (benign prostatic hyperplasia) Well adult exam Near-sightedness Psoriasis Measles Cellulitis of toe Actinic keratosis Basal cell carcinoma Eczema Diabetes Hyperlipidemia Hypertension Surgical History Anesthesia Status post amputation of extremity (~05/2013) Family History Mother Hypertension History of heart disease Father Parkinson's disease History of heart disease Social History household members: none Smoking Status: Never smoker alcohol intake: current substance use type: does not use Assessment & Plan Assessment & Plan narrative: 1. Generalized weakness. Complex picture in a patient with moderate cognitive impairment, likely early dementia. Present on admission and active. 2. Diabetes mellitus, type 2 out of control. Unclear if this is a compliance issue or dosing issue. Present on admission and active. 3. Left forearm and knee abrasions. Present on admission and active. 4. Acute kidney injury versus stage IIIA chronic kidney disease. Present on admission and improved. 5. Probable dementia. Present on admission and active. 6. Hyperlipidemia. Present on admission and active. 7. BPH. Present on admission and active. 8. Hyperkalemia, present on admission and resolved. PLAN: -stopped antibiotics for UTI as urine culture was negative in spite of pyuria. -physical therapy assessment. -monitor renal function and potassium. -family does not feel he was safe to function independently at home anymore and we are working on Assisted living, where he lived about 4 months ago. DVT prophylaxis: Subcutaneous Lovenox Code status: Full code. The patient clearly states this on admission and family are present and state this is consistent with previous expressed wishes. Observation status. POLA: 07/06 if the assisted living facility can accept him by then. Time-Based Coding :: 20 min spent with patient and on the chart (including review of chart, obtaining history, exam, reviewing outside data, placing orders, documenting exam and treatment plan, and counseling patient) on 07/05. Quality VTE Deep Vein Thrombosis/Pulmonary Embolism Present on Admission: No
[2024-07-05 12:00] VITALS: BP 116/67; PULSE 78; RESP 16; TEMP 36.2; O2SAT 98
--- NOTE | 2024-07-05 12:04 | CM.DPC ---
DCP Cont. Reviewed EMR and team rounds for status updates. Leila from [facility] completed her bedside assessment of pt today. [facility] explained that we are hoping for his d/c to be tomorrow, as he is medically stable, now on oral antibiotics, and can be managed at a lower level of care. She will speak with her team and call this [facility] to confirm whether or not they can move him in tomorrow. She states that today family are moving in his belongings to his new room. Will follow closely and assist with final d/c transition.
[2024-07-05] MEDS: INSULIN LISPRO 100 UNIT/ML 3ML VIAL SUBCUT ×2 (12:05→21:49)
--- NOTE | 2024-07-05 13:05 | OT.IP.TRT ---
Occupational Therapy Treatment Note M2 OT-IP Current Condition Start: 07/04/24 14:50 Freq: Status: Active Protocol: Document 07/04/24 14:50 TOMY (Rec: 07/04/24 15:16 TOMY [id number]) Occupational Therapy Current Condition Current Condition Evaluation Date 07/04/24 Treatment Diagnosis syncope, confusion Diagnosis Onset Date 07/03/24 M3 OT- IP Subjective and Pain Start: 07/04/24 14:50 Freq: Status: Active Protocol: Document 07/05/24 13:05 [facility] (Rec: 07/05/24 13:15 [facility] [id number]) OT- Subjective Occupational Therapy Visit Type Type Treatment Note Visit Start Time 12:40 Visit Stop Time 13:05 Occupational Therapy Visit Comments Patient Comments Pt agreed to get up. Patient/Caregiver Goals TO get better and stronger. OT Pain Assessment Pain When Pain Assessed At Rest Pain Present Pain Present Denied Pain M4 OT- IP ADL's Start: 07/04/24 14:50 Freq: Status: Active Protocol: Document 07/05/24 13:05 [facility] (Rec: 07/05/24 13:15 [facility] [id number]) OT [id number] Comments OT Self-Feeding Comments NOt at meal time. OT ADL-Grooming General Evaluation Grooming Ability Standby Assistance OT ADL-Oral Care General Eval Oral Care Ability Independent Comments Oral Care Comments Able to do while standing at the sink with his FWW. OT ADL-Toileting General Evaluation Toileting Ability Standby Assistance Comments OT Toileting Comments Pt able to change out his brief and wipe with wet ones. Pt had urinary urgency and not able to get to the bathroom in time. OT ADL-Bathing Comments OT Bathing Comments Pt not wanting to shower. M5 OT- IP IADL's Start: 07/04/24 14:50 Freq: Status: Active Protocol: Document 07/04/24 14:50 TOMY (Rec: 07/04/24 15:16 TOMY [id number]) OT-Instrumental Activities of Daily Living Deficits IADL Deficits Identified Deficits Home Safety Awareness Awareness of Need for Assistance at Home Decreased Awareness Ability to Problem Solve Emergency Unable to Problem Solve Situations Home Safety Comments pt is a diabetic. discussed pts typical meals (pastries and fruit). pt unable to problem solve other meal options. Medication Management Medication Management Comments pt may need assistance administering on d/c Money Management Money Management Comments pt may need assistance. Meal Preparation Meal Preparation Comments pt may need assistance preparing healthy diabetic friendly meals. Community Coordinator For [employer] Community Coordinator [employer] No Deficits Identified Driving Driving Comments pt may need assistance. M6 OT- IP Functional Cognition Start: 07/04/24 14:50 Freq: Status: Active Protocol: Document 07/05/24 13:05 [facility] (Rec: 07/05/24 13:15 [facility] [id number]) Cognitive Factors Limiting Selfcare Function Cognitive Ability Ability to Follow Commands Able to Follow One Step Commands Memory Description Short Term Impaired Safety Awareness Underestimates Need for Assistance Cognitive Comments Cognitive Assessment Comments Pt is forgetful and needing reminders for completeness during tasks. M7 OT- IP Mobility and Balance Start: 07/04/24 14:50 Freq: Status: Active Protocol: Document 07/05/24 13:05 [facility] (Rec: 07/05/24 13:15 [facility] [id number]) OT- Bed Mobility Assessment Supine to Sit Supine to Sit Assist Standby Assistance,Bedrails Sit to Supine Sit to Supine Assist Standby Assistance OT-Transfer Assessment Sit to and From Stand Sit to and from Stand Standby Assistance Transfers Transfer Ability Standby Assistance,Contact Guard Assistance Technique Transfer Destination Bed Devices Transfer Assistive Devices Gait Belt,Front Wheeled Walker Comments Mobility Comments Pt normally uses a bedrail at home to get up. Pt needing lots of momentum to get up to the edge of the bed. Pt CGA to close SBA to stand to FWW and use of the back of his legs to assist to stand. ONce on his feet CGA to close SBA with FWW. OT- Balance Assessment Sitting Balance and Reactions Static Sitting Balance Ability Good Dynamic Sitting Balance Ability Fair Standing Balance and Reactions Static Standing Balance Ability Good Dynamic Standing Balance Ability Fair M8 OT- IP Objective Assessments Start: 07/04/24 14:50 Freq: Status: Active Protocol: Document 07/04/24 14:50 TOMY (Rec: 07/04/24 15:16 TOMY [id number]) OT Gross Range of Motion Upper Extremity Range of Motion Assessment Within Functional Limits ROM Impairments Pt has approximately 145 deg of B shoulder flex/abd OT Strength Upper Extremity Strength Assessment Within Functional Limits Hand Snaker Strength Hand Dominance Right Comments Strength Comments Pt R UE 5/5 grossly and L UE 4 /5 grossly OT-Muscle Tone Assessment Muscle Tone WNL No OT Sensation Assessment Edema Edema Absent M9 OT- IP Assessment and Plan Start: 07/04/24 14:50 Freq: Status: Active Protocol: Document 07/05/24 13:05 [facility] (Rec: 07/05/24 13:15 [facility] [id number]) OT Summary Assessment and Plan Potential Rehabilitation Potential Good Analytic Complexity at Evaluation Low Summary OT Impairments Range of Motion,Balance, Functional Cognition, Functional Mobility,Grooming, Dressing,Toileting,Bathing, Toilet Transfers,Shower Transfers,Activity Tolerance Progress Towards Goals Progressing Toward Goals,Slow Progress due to Cognition Assessment Summary Pt is still a bit forgetful and distracted as needing cues to see the wash cloth on the left of the counter during grooming needs. Pt would benefit from home health and assist when needed as pt looking to go back to his assisted living facility that he lived before. Otherwise pt would benefit from skilled rehab to work on his core strength, balance, and activity tolerance needs. Goals Self-Feeding Goal Independent Grooming Goal Independent Dressing Goal Independent Toileting Goal Standby Assistance Bathing Goal Standby Assistance Toilet Transfer Goal Independent Shower Transfer Goal Standby Assistance Days to Meet Goals 5 Frequency of Treatment Other frequency 5x/week Treatment Plan OT Treatment Plan ADL Training,Functional Cognition Training,Functional Mobility,Therapeutic Exercises ,Patient/Family Education, Discharge Planning Discharge Recommendations OT Discharge Recommendations Home vs SNF Other Discharge Recommendations [facility] versus SNF Transportation Needs at Discharge Private Vehicle,Wheelchair/ Cabulance
[2024-07-05] MEDS: SODIUM CHLORIDE 0.9% 1,000 ML 84 ML IV (15:52)
[2024-07-05 16:00] VITALS: BP 127/69; PULSE 78; RESP 18; TEMP 36.6; O2SAT 98
[2024-07-05] MEDS: FLUCONAZOLE 100 MG TABLET 200 MG PO (18:19)
[2024-07-05 19:47] VITALS: BP 127/67; PULSE 75; RESP 20; TEMP 35.9; O2SAT 98
[2024-07-05] MEDS: TAMSULOSIN 0.4 MG CAPSULE PO (21:22)
[2024-07-05] MEDS: ATORVASTATIN 20 MG TABLET 10 MG PO (21:22)
[2024-07-05 23:00] VITALS: BP 113/52; PULSE 70; RESP 18; TEMP 36.3; O2SAT 97
[2024-07-06 03:00] VITALS: BP 126/58; PULSE 75; RESP 20; O2SAT 98
[2024-07-06] MEDS: SODIUM CHLORIDE 0.9% 1,000 ML 84 ML IV ×2 (06:07→15:54)
[2024-07-06 07:00] VITALS: BP 128/73; PULSE 74; RESP 16; TEMP 36.7; O2SAT 98
--- NOTE | 2024-07-06 07:53 | P.PN_ITS ---
Subjective Subjective Interval history: Summary: This is a 74-year-old male with a history of cognitive impairment as well as diabetes. The patient had moved from an assisted living back to his house about 4 and half months ago. He presented to the hospital with 2 falls and weakness. He had pyuria with a negative urine culture initially. He then grew out yeast. He has a history of Georgie cystitis with a similar episode of weakness. He was started on fluconazole on July 05 with a 14 day course needed. He was moving back into his assisted living, the [facility] in [place] on July 07. S: He feels a little better. Urine grew out Georgie. No feveres. Plan is to go to the Assisted Living facility 07/07. Exam Vital Signs (past 8 hours): - 07/06/24 03:00 Pulse Rate 75 Respiratory Rate 20 Blood Pressure 126/58 L Pulse Oximetry 98 Oxygen Delivery Method Room Air Oxygen Flow Rate 0 Narrative Exam Narrative: NAD, alert and oriented. Fluent speech. Lungs are clear, normal rate and effort. Heart is regular, no murmur gallop or rub. Abdomen is soft, non distended. Extremities are free of edema. Objective Labs 07/05/24 08:15 07/05/24 08:15 Labs: Laboratory Results - last 24 hr 07/05/24 08:15 WBC 7.5 RBC 4.05 L Hgb 12.4 L Hct 36.1 L MCV 89.2 MCH 30.6 MCHC 34.3 RDW 13.7 Plt Count 319 Sodium 135 L Potassium 4.4 Chloride 104 Carbon Dioxide 26 BUN 23 H Creatinine 1.04 Estimated GFR > 60 BUN/Creatinine Ratio 22.1 H Glucose 144 H Calcium 9.1 Total Bilirubin 0.7 AST 18 ALT 11 Alkaline Phosphatase 143 H Total Protein 6.0 L Albumin 3.0 L Globulin 3.0 Albumin/Globulin Ratio 1.0 PFSH Medical History Cognitive decline History of acute renal failure Orthostatic hypotension Ureteral stone Bladder calculus Hydronephrosis concurrent with and due to calculi of kidney and ureter BPH (benign prostatic hyperplasia) Well adult exam Near-sightedness Psoriasis Measles Cellulitis of toe Actinic keratosis Basal cell carcinoma Eczema Diabetes Hyperlipidemia Hypertension Surgical History Anesthesia Status post amputation of extremity (~05/2013) Family History Mother Hypertension History of heart disease Father Parkinson's disease History of heart disease Social History household members: none Smoking Status: Never smoker alcohol intake: current substance use type: does not use Assessment & Plan Assessment & Plan narrative: 1. Generalized weakness. Complex picture in a patient with moderate cognitive impairment, likely early dementia. Present on admission and active. 2. Diabetes mellitus, type 2 out of control. Unclear if this is a compliance issue or dosing issue. Present on admission and active. 3. Left forearm and knee abrasions. Present on admission and active. 4. Acute kidney injury versus stage IIIA chronic kidney disease. Present on admission and improved. 5. Probable dementia. Present on admission and active. 6. Hyperlipidemia. Present on admission and active. 7. BPH. Present on admission and active. 8. Hyperkalemia, present on admission and resolved. 9. Georgie UTI. Present on admission and active. PLAN: -started fluconazole for yeast in urine which resulted 07/05. -physical therapy assessment. -family does not feel he was safe to function independently at home anymore and we are working on Assisted living, where he lived about 4 months ago. He will discharge to [facility] in [place] tomorrow. DVT prophylaxis: Subcutaneous Lovenox Code status: Full code. The patient clearly states this on admission and family are present and state this is consistent with previous expressed wishes. Inpatient status as of 07/05. POLA: 07/07 if the assisted living facility can accept him by then. Time-Based Coding :: 20 min spent with patient and on the chart (including review of chart, obtaining history, exam, reviewing outside data, placing orders, documenting exam and treatment plan, and counseling patient) on 07/06. Quality VTE Deep Vein Thrombosis/Pulmonary Embolism Present on Admission: No
[2024-07-06] MEDS: INSULIN GLARGINE 100 UNIT/ML 3ML PEN 15 UNIT SUBCUT ×2 (08:53→20:30)
[2024-07-06] MEDS: FLUCONAZOLE 100 MG TABLET 200 MG PO (08:54)
[2024-07-06] MEDS: FINASTERIDE 5 MG TABLET PO (08:54)
[2024-07-06] MEDS: METFORMIN HCL 500 MG TABLET PO ×2 (08:54→20:33)
[2024-07-06] MEDS: ENOXAPARIN 40 MG/0.4 ML SYRINGE SUBCUT (08:54)
[2024-07-06 11:00] VITALS: BP 129/75; PULSE 80; RESP 16; TEMP 36.6; O2SAT 99
--- NOTE | 2024-07-06 11:20 | PT.IPTN ---
Physical Therapy Treatment Note M2 PT-IP Current Condition Start: 07/04/24 11:40 Freq: NEEDED Status: Active Protocol: Document 07/04/24 11:45 MB (Rec: 07/04/24 12:09 MB [id number]) Physical Therapy Current Condition Current Condition Evaluation Date 07/04/24 Treatment Diagnosis Syncope, confusion M3 PT-IP Subjective Start: 07/04/24 11:40 Freq: NEEDED Status: Active Protocol: Document 07/06/24 11:43 TS (Rec: 07/06/24 11:49 TS [id number]) Subjective Physical Therapy Visit Type Type Treatment Note Visit Start Time 11:20 Visit Stop Time 11:38 Number of CUTTER OPERATOR Visits 2 Physical Therapy Visit Comments Patient Comments Pt found resting in bed, he is agreeable to PT. M4 PT-IP Mobility and Gait Start: 07/04/24 11:40 Freq: NEEDED Status: Active Protocol: Document 07/06/24 11:43 TS (Rec: 07/06/24 11:49 TS [id number]) PT-Bed Mobility Assessment Supine to Sit Supine to Sit Standby Assistance,Bedrails Sit to Supine Sit to Supine Standby Assistance Scooting Scooting to Edge of Bed Standby Assistance PT-Transfer Assessment Sit to and From Stand Sit to and from Stand Standby Assistance Equipment Transfer Assistive Device Gait Belt,Front Wheeled Walker Orthotic/Prosthetic Devices or Brace: No Comments Mobility Comments Supine to sit SBA with BUE support from flat bed. STS from bed SBA with FWW. He ambulated ~500'SBA with FWW. Pt ambulated back to room, was left in bed, all needs met. Gait Assessment Gait Gait Assistance Required: Standby Assistance Distance (Feet) 500 Able to Maintain Weight Bearing Status Yes During Gait Assistive Devices Assistive Device Gait Belt,Front Wheeled Walker Orthotic/Prosthetic Devices or Brace: No Gait Deviations General Gait Pattern Decreased Stride Length, Decreased Feet Clearance, Flexed Trunk,Step-to Gait,Wide Based Gait Factors Limiting Gait Function Factors Limiting Gait Function Decreased Activity Tolerance, Decreased Strength,Difficulty Following Directions, Incoordination,Limited Range of Motion,Poor Balance,Poor Safety Awareness Comments Gait Comments see mobility comments PT-Balance Assessment Sitting Balance and Reactions Static Sitting Balance Ability Good Dynamic Sitting Balance Ability Fair Standing Balance and Reactions Static Standing Balance Ability Good Dynamic Standing Balance Ability Fair Device Used FWW M5 PT-IP Objective Assessments Start: 07/04/24 11:40 Freq: NEEDED Status: Active Protocol: Document 07/04/24 11:45 MB (Rec: 07/04/24 12:09 MB [id number]) Orientation Orientation/Cognition Level of Alertness Confusional State Orientation Name,Age,Birthday,Month,Year Language Function Ability No Deficits Noted Safety Awareness Decreased Safety Awareness Memory Description Short Term Impaired,Theater Projectionist Impaired Gross Range of Motion Upper Extremity ROM Impairments Defer to OT Lower Extremity ROM Impairments Functional weakness in left LE with stepping Strength Comments Strength Comments PT is unable to get MMT completed d/t priority for orthostatics once moving and pt asking to get to BR for BM. He appears to have some functional weakness in left ankle and foot with gait and this can be re-checked as he tolerates more mobility M6 PT-IP Treatment Start: 07/04/24 11:40 Freq: NEEDED Status: Active Protocol: Document 07/06/24 11:43 TS (Rec: 07/06/24 11:49 TS [id number]) Physical Therapy Treatment Education Education Provided Safety M7 PT-IP Assessment and Plan Start: 07/04/24 11:40 Freq: NEEDED Status: Active Protocol: Document 07/06/24 11:43 TS (Rec: 07/06/24 11:49 TS [id number]) PT Summary Assessment and Plan Potential Rehabilitation Potential Fair Summary Impairments ROM,Strength,Balance,Cognition ,Bed Mobility,Transfers,Gait, Activity Tolerance Progress Towards Goals Progressing Toward Goals Assessment Summary Eric continues to do well with his mobility. He is SBA for all bed mobility and for STS with FWW. He progressed his gait to ~500 SBA with FWW. He has decreased safety awareness and some confusion. PT is recommending home with assist vs RETIREMENT. Goals Bed Mobility Goal Independent Transfer Goal Standby Assistance,Front Wheeled Walker Gait Goal Standby Assistance,Front Wheel Walker Gait Distance 100 Days to Meet Goals 5 Frequency of Treatment Frequency Of Treatment Once a Day Treatment Plan Physical Therapy Treatment Plan Bed Mobility Training,Transfer Training,Gait Training, Therapeutic Exercise,Balance Retraining,Discharge Planning, Hot or Cold Pack,Neuromuscular Re-ed,Coordination Retraining Weight Bearing Status Weight Bearing Status Weight Bear as Tolerated Recommendations To Nursing Amount of Assist Needed Standby Assistance Discharge Recommendations PT Discharge Recommendations Home with Assistance Other Discharge Recommendations home vs RETIREMENT Transportation Needs at Discharge Private Vehicle,Wheelchair/ Cabulance
--- NOTE | 2024-07-06 11:43 | OT.IPNOTE ---
Pt wanting to take a nap as just completed seeing ADMINISTRATIVE DIRECTOR.
[2024-07-06] MEDS: INSULIN LISPRO 100 UNIT/ML 3ML VIAL SUBCUT ×2 (11:54→16:58)
--- NOTE | 2024-07-06 13:18 | CM.DPC ---
DCP Cont. Reviewed EMR and team rounds for status updates. Called Leila Campos (Director), she states that they can accept pt tomorrow, and that his dtr will be driving him there. She requested for our Hospitalist to please adjust the insulin orders to be set dosing rather than sliding scale, which he is willing to do. We will fax d/c clincals tomorrow am once we have a d/c order. Makayla MAIN Fax: [phone] RN to coordinate and leave report with: Tereza
[2024-07-06 15:00] VITALS: BP 129/70; PULSE 72; RESP 16; TEMP 36.7; O2SAT 98
[2024-07-06 19:00] VITALS: BP 135/66; PULSE 75; RESP 20; O2SAT 97
[2024-07-06] MEDS: TAMSULOSIN 0.4 MG CAPSULE PO (20:33)
[2024-07-06] MEDS: ATORVASTATIN 20 MG TABLET 10 MG PO (20:33)
[2024-07-06 23:00] VITALS: BP 155/81; PULSE 75; RESP 20; O2SAT 98
[2024-07-07 03:00] VITALS: BP 138/64; PULSE 80; RESP 20; O2SAT 98
[2024-07-07 04:50] LABS: Hematocrit 34.1 % (41-53); Hemoglobin 11.8 g/dL (13.5-17.5); Mean Corpuscular HGB Conc 34.8 % (30-36); Mean Corpuscular Hemoglobin 30.8 PG (26-34); Mean Corpuscular Volume 88.5 fL (80-100); Platelet Count 328 X10^3/uL (150-400); Red Blood Cell Count 3.85 X10^6/uL (4.5-5.9); Red Cell Distribution Width 13.7 % (11.6-14.8); White Blood Cell Count 7.9 X10^3/uL (4.5-11.0)
[2024-07-07 05:09] LABS: BUN Creatinine Ratio 19.4 (6-22); Blood Urea Nitrogen 20 mg/dL (9-20); Calcium 8.9 mg/dL (8.4-10.2); Carbon Dioxide 22 mmol/L (22-32); Chloride 111 mmol/L (98-107); Estimated Glomerular Filt Rate > 60 mL/min (>60); Glucose 96 mg/dL (80-110); HEMOLYSIS < 15 (0-50); Potassium 4.1 mmol/L (3.4-5.1); Sodium 139 mmol/L (137-145)
--- NOTE | 2024-07-07 08:40 | PT.IPTN ---
Physical Therapy Treatment Note M2 PT-IP Current Condition Start: 07/04/24 11:40 Freq: NEEDED Status: Active Protocol: Document 07/04/24 11:45 MB (Rec: 07/04/24 12:09 MB [id number]) Physical Therapy Current Condition Current Condition Evaluation Date 07/04/24 Treatment Diagnosis Syncope, confusion M3 PT-IP Subjective Start: 07/04/24 11:40 Freq: NEEDED Status: Active Protocol: Document 07/07/24 10:28 TS (Rec: 07/07/24 10:34 TS [id number]) Subjective Physical Therapy Visit Type Type Treatment Note Visit Start Time 08:40 Visit Stop Time 09:10 Number of MARZIPAN MOLDER Visits 3 Physical Therapy Visit Comments Patient Comments Pt found resting in bed, he is agreeable to PT. M4 PT-IP Mobility and Gait Start: 07/04/24 11:40 Freq: NEEDED Status: Active Protocol: Document 07/07/24 10:28 TS (Rec: 07/07/24 10:34 TS [id number]) PT-Bed Mobility Assessment Supine to Sit Supine to Sit Standby Assistance,Bedrails Sit to Supine Sit to Supine Standby Assistance Scooting Scooting to Edge of Bed Standby Assistance PT-Transfer Assessment Sit to and From Stand Sit to and from Stand Standby Assistance Equipment Transfer Assistive Device Gait Belt,Front Wheeled Walker Orthotic/Prosthetic Devices or Brace: No Comments Mobility Comments Pt performs bed mobility and STS SBA. He has some difficulty sitting up to EOB with HOB elevated requiring extra time to complete. Gait Assessment Gait Gait Assistance Required: Standby Assistance Distance (Feet) 500 Able to Maintain Weight Bearing Status Yes During Gait Assistive Devices Assistive Device Gait Belt,Front Wheeled Walker Orthotic/Prosthetic Devices or Brace: No Gait Deviations General Gait Pattern Flexed Trunk,Wide Based Gait Factors Limiting Gait Function Factors Limiting Gait Function Decreased Activity Tolerance, Decreased Strength,Difficulty Following Directions,Poor Balance,Poor Safety Awareness Comments Gait Comments He ambulates ~500'SBA with FWW . He tends to bump into allison. PT-Balance Assessment Sitting Balance and Reactions Static Sitting Balance Ability Good Dynamic Sitting Balance Ability Fair Standing Balance and Reactions Static Standing Balance Ability Good Dynamic Standing Balance Ability Fair Device Used FWW Comments Other Balance Tests/Deviations/Treatment Pt performed NBOS, NBOS ec and : tandem stance. Tandem stance most challenging for pt. M5 PT-IP Objective Assessments Start: 07/04/24 11:40 Freq: NEEDED Status: Active Protocol: Document 07/04/24 11:45 MB (Rec: 07/04/24 12:09 MB [id number]) Orientation Orientation/Cognition Level of Alertness Confusional State Orientation Name,Age,Birthday,Month,Year Language Function Ability No Deficits Noted Safety Awareness Decreased Safety Awareness Memory Description Short Term Impaired,Detention Impaired Gross Range of Motion Upper Extremity ROM Impairments Defer to OT Lower Extremity ROM Impairments Functional weakness in left LE with stepping Strength Comments Strength Comments PT is unable to get MMT completed d/t priority for orthostatics once moving and pt asking to get to BR for BM. He appears to have some functional weakness in left ankle and foot with gait and this can be re-checked as he tolerates more mobility M6 PT-IP Treatment Start: 07/04/24 11:40 Freq: NEEDED Status: Active Protocol: Document 07/07/24 10:28 TS (Rec: 07/07/24 10:34 TS [id number]) Physical Therapy Treatment Education Education Provided Safety M7 PT-IP Assessment and Plan Start: 07/04/24 11:40 Freq: NEEDED Status: Active Protocol: Document 07/07/24 10:28 TS (Rec: 07/07/24 10:34 TS [id number]) PT Summary Assessment and Plan Potential Rehabilitation Potential Fair Summary Impairments ROM,Strength,Balance,Cognition ,Bed Mobility,Transfers,Gait, Activity Tolerance Progress Towards Goals Progressing Toward Goals Assessment Summary Eric continues to make progress with his mobility. He continues to be SBA for bed mobility and ambulation. He tends to bump into allison with gait and can correct self. He was challenged with balance ex and had most diffiuclty with tandem stance. PT continues to recommend home vs [facility]. Goals Bed Mobility Goal Independent Transfer Goal Standby Assistance,Front Wheeled Walker Gait Goal Standby Assistance,Front Wheel Walker Gait Distance 100 Days to Meet Goals 5 Frequency of Treatment Frequency Of Treatment Once a Day Treatment Plan Physical Therapy Treatment Plan Bed Mobility Training,Transfer Training,Gait Training, Therapeutic Exercise,Balance Retraining,Discharge Planning, Hot or Cold Pack,Neuromuscular Re-ed,Coordination Retraining Weight Bearing Status Weight Bearing Status Weight Bear as Tolerated Recommendations To Nursing Amount of Assist Needed Standby Assistance Discharge Recommendations PT Discharge Recommendations Home with Assistance Other Discharge Recommendations home vs [facility] Transportation Needs at Discharge Private Vehicle,Wheelchair/ Cabulance
[2024-07-07] MEDS: INSULIN GLARGINE 100 UNIT/ML 3ML PEN 15 UNIT SUBCUT (08:43)
[2024-07-07] MEDS: METFORMIN HCL 500 MG TABLET PO (08:44)
[2024-07-07] MEDS: FLUCONAZOLE 100 MG TABLET 200 MG PO (08:44)
[2024-07-07] MEDS: FINASTERIDE 5 MG TABLET PO (08:44)
[2024-07-07] MEDS: ENOXAPARIN 40 MG/0.4 ML SYRINGE SUBCUT (08:44)
[2024-07-07 08:48] VITALS: BP 125/60; PULSE 77; RESP 16; TEMP 36.7; O2SAT 99
--- NOTE | 2024-07-07 08:52 | PM.DS.1 ---
History of Present Illness History of Present Illness Date Patient Seen: 07/07/24 Time Patient Seen: 08:52 Date of Onset of Symptoms: 07/03/24 Chief complaint: syncope Narrative: 74-year-old man under the primary care of Dr. Darion Seo was found down today by his daughter, after not answering his phone. She last spoke to him on 07/01 in the late evening, which time he stated he was feeling fine. He has moderate cognitive impairment and make several statements during our interview that his daughter states are inaccurate. He feels that he somehow had a soft landing on the ground as he had no injury, other than a small left forearm abrasion. However, he is not exactly sure how he did end up on the ground, though knows that he was too weak to get up by himself. He was brought to the emergency department for further evaluation and not found have a clear-cut reason for his weakness, though does have an abnormal urinalysis and severe hyperglycemia in the setting of chronic poorly controlled diabetes, with his most recent hemoglobin A1c 13.1% on 06/30/2024, previously 9.3% on 02/25/2024. He had been living at an assisted living facility in [facility] until about 4 months ago before returning home to live independently. He is seen with his daughter lives and son-in-law (who is a nursing home social worker in [place]) were hoping that he can return to an assisted living situation given their concerns over his ability to care for himself. Discharge Providers Provider Date of admission: 07/05/24 12:29 Discharge Date: 07/07/24 Primary care physician: Trever Seo DO Consults: 07/03/24 13:53 Consult to Discharge Planning Routine Comment: Consult to Occupational Therapy Evaluate & Treat Comment: Physician Instructions: Evaluate and treat Consult to Physical Therapy Evaluate & Treat Comment: Physician Instructions: Evaluate and Treat Discharge provider: Herbert River DO Summary Hospital Course Discharge Diagnosis: 1. Generalized weakness. Complex picture in a patient with moderate cognitive impairment, likely early dementia. Present on admission and active. 2. Diabetes mellitus, type 2 out of control. Unclear if this is a compliance issue or dosing issue. Present on admission and active. 3. Left forearm and knee abrasions. Present on admission and active. 4. Acute kidney injury versus stage IIIA chronic kidney disease. Present on admission and improved. 5. Probable dementia. Present on admission and active. 6. Hyperlipidemia. Present on admission and active. 7. BPH. Present on admission and active. 8. Hyperkalemia, present on admission and resolved. 9. Georgie UTI. Present on admission and active. Hospital Course: This is a 74-year-old male with a history of cognitive impairment as well as diabetes. The patient had moved from an assisted living back to his house about 4 and half months ago. He presented to the hospital with 2 falls and weakness. He had pyuria with a negative urine culture initially. He then grew out yeast. He has a history of Georgie cystitis with a similar episode of weakness. He was started on fluconazole on July 05 with a 14 day course needed. He was moving back into his assisted living, the [facility] in [place] on July 07. Time Spent with Patient Time spent: Greater than 30 minutes Exam Vital Signs (past 8 hours): - 07/07/24 03:00 Pulse Rate 80 Respiratory Rate 20 Blood Pressure 138/64 Pulse Oximetry 98 Oxygen Delivery Method Room Air Oxygen Flow Rate 0 Narrative Exam Narrative: NAD, alert and oriented. Fluent speech. Lungs are clear, normal rate and effort. Heart is regular, no murmur gallop or rub. Abdomen is soft, non distended. Extremities are free of edema. Objective Labs 07/07/24 04:39 07/07/24 04:39 Labs: Laboratory Results - last 24 hr 07/07/24 04:39 WBC 7.9 RBC 3.85 L Hgb 11.8 L Hct 34.1 L MCV 88.5 MCH 30.8 MCHC 34.8 RDW 13.7 Plt Count 328 Sodium 139 Potassium 4.1 Chloride 111 H Carbon Dioxide 22 BUN 20 Creatinine 1.03 Estimated GFR > 60 BUN/Creatinine Ratio 19.4 Glucose 96 Calcium 8.9 PFSH Medical History Cognitive decline History of acute renal failure Orthostatic hypotension Ureteral stone Bladder calculus Hydronephrosis concurrent with and due to calculi of kidney and ureter BPH (benign prostatic hyperplasia) Well adult exam Near-sightedness Psoriasis Measles Cellulitis of toe Actinic keratosis Basal cell carcinoma Eczema Diabetes Hyperlipidemia Hypertension Surgical History Anesthesia Status post amputation of extremity (~05/2013) Family History Mother Hypertension History of heart disease Father Parkinson's disease History of heart disease Social History household members: none Smoking Status: Never smoker alcohol intake: current substance use type: does not use Discharge Plan Discharge Plan Patient Disposition: Assisted Living Other facility: [facility] Discharge orders & Medications Discharge Orders: Discharge (Order); Ordered 07/07/24 Ordered By: Herbert River Prescriptions: New fluconazole 200 mg tablet 200 mg PO DAILY 12 Days Qty: 12 0RF Continued (DME) blood glucose test strips See Rx Instructions .Route .MEDSUPPLY Qty: 1 5RF Rx Instructions: Use to test blood sugars twice a day (DME) pen needle, diabetic, safety 30 gauge x 1/3 needle See Rx Instructions .Route Qty: 100 3RF Rx Instructions: Use to inject insulin daily (DME) lancets 32 gauge misc See Rx Instructions .Route Qty: 100 3RF Rx Instructions: use to test blood sugars twice a day (DME) blood glucose monitor See Rx Instructions .Route .MEDSUPPLY Qty: 1 1RF Rx Instructions: Use to test blood sugars twice a day finasteride 5 mg tablet 5 mg PO DAILY 90 Days Qty: 90 0RF insulin glargine [Basaglar KwikPen U-100 Insulin] 100 unit/mL (3 mL) insulin pen 15 unit SUBCUT BID 90 Days Qty: 27 0RF Changed tamsulosin 0.4 mg capsule 0.4 mg PO BEDTIME Qty: 90 0RF Rx Instructions: 0.4 mg orally; simvastatin 20 mg tablet 20 mg PO BEDTIME 90 Days Qty: 90 0RF Dose Instruction: TAKE 1 TABLET BY MOUTH EVERY EVENING FOR HLD metformin 500 mg tablet 500 mg PO BIDWMEAL 90 Days Qty: 180 5RF Rx Instructions: 500 mg orally; Discontinued HyFiber with FOS 12 gram/30 mL liquid 1 ea PO BID Qty: 3784 1RF sennosides [senna] 8.6 mg tablet See Rx Instructions .ROUTE .COMPLEX Qty: 60 5RF Dose Instruction: TAKE 2 TABLETS (17.2MG) BY MOUTH NIGHTLY AT BEDTIME FOR CONSTIPATION HOLD FOR LOOSE STOOL Rx Instructions: TAKE 2 TABLETS (17.2MG) BY MOUTH NIGHTLY AT BEDTIME FOR CONSTIPATION HOLD FOR LOOSE STOOL thiamine HCl (vitamin B1) [Vitamin B-1] 100 mg tablet See Rx Instructions .ROUTE .COMPLEX Qty: 30 5RF Dose Instruction: TAKE 1 TABLET BY MOUTH DAILY Rx Instructions: TAKE 1 TABLET BY MOUTH DAILY acetaminophen 650 mg tablet extended release 650 mg PO Q4H PRN (Reason: pain) magnesium hydroxide 400 mg/5 mL suspension 2,400 mg PO DAILY PRN (Reason: Sleep) Patient Comments: Pt states he does not take anymore polyethylene glycol 3350 [Miralax] 17 gram/dose powder 17 g PO DAILY PRN (Reason: Constipation) phenazopyridine 200 mg tablet 200 mg PO TID Patient Comments: Pt states he is not taking ondansetron 4 mg tablet,disintegrating 4 mg PO Q8H Patient Comments: Pt states he does not take docusate sodium [Stool Softener] 100 mg capsule 100 mg PO DAILY ascorbic acid (vitamin C) [Vitamin C] 500 mg tablet 500 mg PO DAILY folic acid 1 mg tablet 1 mg PO DAILY Patient Comments: Pt does not take Follow up/Referrals: Trever Seo DO [Primary Care Provider] - Diet/Activity/Treatments Diet: Carb-consistent/Diabetic Visit Report/Discharge Packet Instructions: DI for Diabetes Type 2, How to Prevent Falls Stand Alone Forms: Patient Portal/API, Stroke Signs & Symptoms Discharge Data Primary Care Provider: Trever Seo Quality VTE Deep Vein Thrombosis/Pulmonary Embolism Present on Admission: No
--- NOTE | 2024-07-07 09:18 | CM.DPC ---
Addendum entered by TRACY Ceballos 07/07/24 11:10: ADD: Return call from Dtr/DPOA Donya confirming she is agreeable with d/c today and will arrive with clothes for the pt around 1300 and will provide transport to [facility] for patient. CRISTAL updated RN. BF Original Note: DCP Discharge [facility] Per MD, pt medically stable to d/c to Assisted Living Facility today and confirmed insulin is now scheduled per [facility] request and efaxed pt's meds to the requested [facility] uses and signed med list. CRISTAL spoke to Tereza at [facility], covering for Sarah who is on vacation, and she confirmed [facility] fax and location and confirms no RN report needed today to admit pt as they know him already and bedside assessment was already completed by Sarah. Preference is to have pt arrive anytime before 1600. CRISTAL faxed signed med list and d/c summary to [facility] to both fax [phone] and fax [phone]. CRISTAL met bedside with pt after seeing him ambulate the hallways with PT FWW SBA and he confirms he is aware of discharge to [facility] today via his Dtr POV and he thinks maybe around 1500 transport. Dtr has already moved in furniture to [facility]. CRISTAL called Dtr Donya and left msg requesting confirmation of time of transport to have pt ready for discharge and that facility requesting before 1600. Updated payable processor, FINAL INSPECTOR MOVEMENT ASSEMBLY, and RN. Plan: Patient to d/c to [facility] in [place] via Dtr POV to be near his DPOA Dtr Donya for ongoing care after discharge. TRACY Ceballos
[2024-07-07] MEDS: INSULIN LISPRO 100 UNIT/ML 3ML VIAL SUBCUT (11:56)
--- NOTE | 2024-07-07 13:20 | PC.NURSE ---
Day shift: DIscharge instructions gone over with patient and patient's daughter. Patient and daughter stated understanding, all questions answered. PIV and tele d/c'ed prior to discharge. PCT Jaylin escorted patient to exit where patient's daughter plans to drive him to assisted living facility in [place]. All belongings with patient, including home medication that was returned by pharmacy.
[2024-08-31 12:50] LABS: Misc. to WA State Lab SEE SCANNED REPORTS
== END 2024-07-07 13:20 | DRG 884 ==
LOC: ED 12:45 → AC 12:48
PROVIDERS: Hospitalist; Admitting Provider Internal Medicine; Emergency Provider Emergency Medicine; PCP Family Medicine; Referring Provider Emergency Medicine; Visit Provider Internal Medicine
DX: F03.90 Unspecified dementia, unspecified severity, without behavioral disturbance, psychotic disturbance, mood disturbance, and anxiety (principal); N39.0 Urinary tract infection, site not specified; N17.9 Acute kidney failure, unspecified; E11.65 Type 2 diabetes mellitus with hyperglycemia; S50.812A Abrasion of left forearm, initial encounter; S80.212A Abrasion, left knee, initial encounter; E78.5 Hyperlipidemia, unspecified; N40.0 Benign prostatic hyperplasia without lower urinary tract symptoms; E87.5 Hyperkalemia; B96.89 Other specified bacterial agents as the cause of diseases classified elsewhere; E11.22 Type 2 diabetes mellitus with diabetic chronic kidney disease; W18.30XA Fall on same level, unspecified, initial encounter; N18.31 Chronic kidney disease, stage 3a; Z79.4 Long term (current) use of insulin
CPT/HCPCS: 36415; 51798; 70450; 71045; 80048; 80053; 81001; 81003; 82550; 82607; 82962; 83690; 83735; 83880; 84145; 84484; 85025; 85027; 85610; 85730; 87077; 87086; 87633; 93005; 97112; 97116; 97161; 97165; 97530; 97535; 99284; G0378; J0696; J1650; J1815

== ENCOUNTER → 2024-10-25 17:20 | Outpatient (CLI) | payer MEDICARE, OTHER, SELFPAY ==
[2024-07-03 12:49] VITALS: BMI 26.4
[2024-10-25 18:18] LABS: Add Manual Diff / Slide Review NO; Basophils Absolute Auto 100 /uL (0-100); Basophils Percent Auto 0.8 % (0-2); Eosinophils Absolute Auto 200 /uL (0-450); Hematocrit 39.1 % (41-53); Hemoglobin 12.9 g/dL (13.5-17.5); Lymphocytes Absolute Auto 1200 /uL (1100-4500); Lymphocytes Percent Auto 14.2 % (25-40); Mean Corpuscular HGB Conc 33.1 % (30-36); Mean Corpuscular Hemoglobin 29.4 PG (26-34); Mean Corpuscular Volume 88.7 fL (80-100); Monocytes Absolute Auto 500 /uL (0-900); Neutrophils Absolute Auto 6500 /uL (1500-7000); Platelet Count 296 X10^3/uL (150-400); Red Blood Cell Count 4.41 X10^6/uL (4.5-5.9); Red Cell Distribution Width 13.6 % (11.6-14.8); White Blood Cell Count 8.5 X10^3/uL (4.5-11.0)
[2024-10-25 18:30] LABS: Hemoglobin A1C% w Est Avg Glu 7.2 % (4.0-6.0)
[2024-10-25 18:34] LABS: HEMOLYSIS < 15 (0-50); Iron 51 ug/dL (49-181)
[2024-10-25 18:37] LABS: Alanine Aminotransferase 23 IU/L (<50); Albumin 3.9 g/dL (3.5-5.0); Albumin Globulin Ratio 1.2 (1.0-2.8); Alkaline Phosphatase 115 U/L (38-126); Aspartate Aminotransferase 34 IU/L (17-59); Bilirubin Total 0.4 mg/dL (0.2-1.3); Blood Urea Nitrogen 25 mg/dL (9-20); Calcium 9.4 mg/dL (8.4-10.2); Carbon Dioxide 26 mmol/L (22-32); Chloride 105 mmol/L (98-107); Estimated Glomerular Filt Rate 46 mL/min (>60); Globulin 3.3 g/dL (1.7-4.1); Glucose 272 mg/dL (80-110); HEMOLYSIS < 15 (0-50); Sodium 136 mmol/L (137-145); Total Protein 7.2 g/dL (6.3-8.2)
[2024-10-25 18:44] LABS: Percent Iron Saturation 15 % (20-50); Total Iron Binding Capacity 346 ug/dL (261-462); Transferrin 308 mg/dL (206-381)
[2024-10-25 19:05] LABS: TSH w/ Reflex to FT4 1.55 uIU/mL (0.47-4.68)
[2024-10-25 19:24] LABS: Vitamin B12 224 pg/mL (239-931)
== END ==
PROVIDERS: PCP Family Medicine; Referring Provider Family Medicine; Visit Provider Family Medicine
DX: E11.9 Type 2 diabetes mellitus without complications (principal); E78.5 Hyperlipidemia, unspecified; N40.0 Benign prostatic hyperplasia without lower urinary tract symptoms; I95.1 Orthostatic hypotension
CPT/HCPCS: 36415; 80053; 82607; 83036; 83540; 83550; 84443; 85025

== ENCOUNTER → 2025-01-27 14:47 | Outpatient (CLI) | payer MEDICARE, OTHER, SELFPAY ==
[2024-07-03 12:49] VITALS: BMI 26.4
[2025-01-27 15:41] LABS: Add Manual Diff / Slide Review NO; Basophils Absolute Auto 0 /uL (0-100); Basophils Percent Auto 0.5 % (0-2); Eosinophils Absolute Auto 200 /uL (0-450); Hematocrit 41.4 % (41-53); Hemoglobin 14.2 g/dL (13.5-17.5); Lymphocytes Absolute Auto 1400 /uL (1100-4500); Lymphocytes Percent Auto 18.2 % (25-40); Mean Corpuscular HGB Conc 34.3 % (30-36); Mean Corpuscular Hemoglobin 29.7 PG (26-34); Mean Corpuscular Volume 86.6 fL (80-100); Monocytes Absolute Auto 400 /uL (0-900); Monocytes Percent Auto 5.8 % (3-14); Neutrophils Absolute Auto 5700 /uL (1500-7000); Neutrophils Percent Auto 73.5 % (50-75); Platelet Count 301 X10^3/uL (150-400); Red Blood Cell Count 4.78 X10^6/uL (4.5-5.9); Red Cell Distribution Width 13.6 % (11.6-14.8); White Blood Cell Count 7.7 X10^3/uL (4.5-11.0)
[2025-01-27 16:13] LABS: Alanine Aminotransferase 36 IU/L (<50); Albumin 4.2 g/dL (3.5-5.0); Albumin Globulin Ratio 1.3 (1.0-2.8); Alkaline Phosphatase 115 U/L (38-126); Aspartate Aminotransferase 46 IU/L (17-59); BUN Creatinine Ratio 18.6 (6-22); Bilirubin Total 0.6 mg/dL (0.2-1.3); Blood Urea Nitrogen 24 mg/dL (9-20); Calcium 9.7 mg/dL (8.4-10.2); Carbon Dioxide 24 mmol/L (22-32); Chloride 105 mmol/L (98-107); Estimated Glomerular Filt Rate 57 mL/min (>60); Globulin 3.2 g/dL (1.7-4.1); Glucose 184 mg/dL (80-110); HEMOLYSIS < 15 (0-50); Potassium 4.5 mmol/L (3.4-5.1); Sodium 139 mmol/L (137-145); Total Protein 7.4 g/dL (6.3-8.2)
[2025-01-27 16:14] LABS: HEMOLYSIS 20 (0-50); Iron 94 ug/dL (49-181)
[2025-01-27 16:23] LABS: Hemoglobin A1C% w Est Avg Glu 6.7 % (4.0-6.0)
[2025-01-27 16:27] LABS: Percent Iron Saturation 25 % (20-50); Total Iron Binding Capacity 379 ug/dL (261-462); Transferrin 310 mg/dL (206-381)
[2025-01-27 16:46] LABS: TSH w/ Reflex to FT4 1.69 uIU/mL (0.47-4.68)
[2025-01-27 17:04] LABS: Vitamin B12 360 pg/mL (239-931)
== END ==
LOC: LAB 14:48
PROVIDERS: PCP Family Medicine; Referring Provider Family Medicine; Visit Provider Family Medicine
DX: D64.9 Anemia, unspecified (principal); E11.9 Type 2 diabetes mellitus without complications; E53.8 Deficiency of other specified B group vitamins; E78.5 Hyperlipidemia, unspecified; N40.0 Benign prostatic hyperplasia without lower urinary tract symptoms
CPT/HCPCS: 36415; 80053; 82607; 83036; 83540; 83550; 84443; 85025